=== PATIENT | female | born 1950 | race Caucasian/White ===

== ENCOUNTER 2016-03-24 09:20 | Inpatient (IN) | payer OTHER ==
--- NOTE | 2016-03-24 09:28 | PDOC ---
History of Present Illness <Deniz Coronado - Last Filed: 03/24/16 12:15> - General History Source: EMS, Old Records Exam Limitations: Other - History of Present Illness Initial Comments: 03/24/16 09:41 The patient is a 65 year old female, with significant past medical history of HLD, GERD, anxiety, bipolar disorder, who presents today via ambulance. The patient is A&O x1; therefore, HPI is limited. EMS states that the patient called an ambulance via life alert. She had multiple episodes of vomiting. She is not complaining of any pain at this time. Social Hx: The patient lives at home alone. She has an at home health aid that comes at 11am. Allergies: amoxicillin trihydrate, potassium clavulanate, clindamycin, sulfa. <Steffi Farah - Last Filed: 03/24/16 13:15> - General Stated Complaint: VOMITING Past History - Past Medical History Anemia: No GI Disorders: (acid reflex) Hypercholesterolemia: Yes Psychiatric Problems: Yes (OCD) - Surgical History Abdominal Surgery: Yes (gallbladder removed) Cholecystectomy: Yes - Immunization History Immunization Up to Date: Yes - Psycho/Social/Smoking Cessation Hx Anxiety: Yes Suicidal Ideation: No Smoking History: Current every day smoker Have you smoked in the past 12 months: Yes Number of Cigarettes Smoked Daily: 20 Cigars Per Day: 0 'Breaking Loose' booklet given: 02/16/16 Hx Alcohol Use: No Drug/Substance Use Hx: No Substance Use Type: None Hx Substance Use Treatment: No <Deniz Coronado - Last Filed: 03/24/16 12:15> <Steffi Farah - Last Filed: 03/24/16 13:15> - Past Medical History Allergies/Adverse Reactions: Allergies Allergy/AdvReac Type Severity Reaction Status Date / Time amoxicillin trihydrate Allergy Intermediate Difficulty Verified 03/24/16 09:31 [From Augmentin] Breathing potassium clavulanate Allergy Intermediate Difficulty Verified 03/24/16 09:31 [From Augmentin] Breathing clindamycin Allergy Verified 03/24/16 09:31 Sulfa (Sulfonamide Allergy Verified 03/24/16 09:31 Antibiotics) Home Medications: Ambulatory Orders Atorvastatin Ca [Lipitor] 10 mg PO HS 08/14/15 Polyethylene Glycol 3350 [Miralax 119 gm Btl -] 17 gm PO DAILY bottle 09/07/15 Acetaminophen [Tylenol .Regular Strength -] 650 mg PO Q4H PRN #0 tablet Alprazolam [Xanax] 2 mg PO TID #90 tablet MDD 6mg 03/09/16 Atenolol [Tenormin -] 25 mg PO DAILY #14 tablet 03/09/16 Mirtazapine [Remeron -] 45 mg PO HS #30 tablet 03/09/16 Nifedipine ER [Procardia XL -] 30 mg PO DAILY #14 tab.er.24 03/09/16 Ondansetron [Zofran -] 4 mg PO TID PRN #21 tablet 03/09/16 Quetiapine Fumarate [Seroquel -] 400 mg PO HS #30 tablet 03/09/16 Review of Systems - Review of Systems Able to Perform ROS?: No (limited) <Steffi Farah - Last Filed: 03/24/16 13:15> *Physical Exam - Physical Exam Comments: 03/24/16 09:42 GENERAL: Well-appearing, well-nourished. No apparent distress. A&O x1. HEENT: Normocephalic, atraumatic. PERRL, EOM intact. CARDIOVASCULAR: Normal S1, S2. Regular rate and rhythm. PULMONARY: Clear to auscultation bilaterally. ABDOMEN: Soft, non-distended, non-tender. EXTREMITIES: +2 pitting edema bilaterally.Moving all extremities. Normal ROM in all four extremities. No gross deformities. SKIN: Warm, dry. No rash NEUROLOGICAL: Clear speech. No focal neurological deficits. <Steffi Farah - Last Filed: 03/24/16 13:15> ED Treatment Course - LABORATORY CBC & Chemistry Diagram: 03/24/16 09:50 03/24/16 09:50 <Deniz Coronado - Last Filed: 03/24/16 12:15> - LABORATORY CBC & Chemistry Diagram: 03/24/16 09:50 03/24/16 09:50 - RADIOLOGY Radiograph Interpretation: 03/24/16 11:07 EXAM#: TYPE/EXAM: RESULT: [id number] RAD/CHEST X-RAY PORTABLE* AP portable chest: Pneumonia Since 03/08/2016, there is no significant change. Again noted is the elevated right hemidiaphragm, clear lungs, sclerotic knob, normal lacie and normal heart. The angles are sharp and the soft tissues are intact. Significant arthritic changes are not seen. Impression: No acute pathology. No significant change since 03/08/2016. Reported By: Gurdeep Coleman MD 03/24/16 1049 03/24/16 13:15 EXAM#: TYPE/EXAM: RESULT: [id number] CT/HEAD CT WITHOUT CONTRAST HISTORY PROVIDED : Altered mental status TECHNIQUE: Sequential axial images were obtained from the base of the skull to the vertex. There is no evidence of acute intracranial hemorrhage, mass lesions or infarctions. There is a mild degree of diffuse cerebral atrophy with sulcal widening and ventricular dilatation. IMPRESSION: No evidence of acute intracranial pathology. Reported By: Varun Mathis MD 03/24/16 1231 <Steffi Farah - Last Filed: 03/24/16 13:15> *DC/Admit/Observation/Transfer - Discharge Dispostion Admit: Yes <Deniz Coronado - Last Filed: 03/24/16 12:15> - Attestations Scribe Attestion: 03/24/16 09:43 Documentation prepared by RAGINI Corado, acting as medical communication specialist for Deniz Coronado MD. <Steffi Farah - Last Filed: 03/24/16 13:15> Diagnosis at time of Disposition: Acute metabolic encephalopathy, Hyponatremia syndrome - Discharge Dispostion Condition at time of disposition: Guarded
[2016-03-24] MEDS ORDERED: SODIUM CHLORIDE 500 ML IV STA (09:33)
[2016-03-24] MEDS ORDERED: SODIUM CHLORIDE 1,000 ML IV SCH (09:45)
[2016-03-24] MEDS ORDERED: ONDANSETRON 4 MG/2 ML VIAL IVPUSH ONE (10:00)
[2016-03-24] MEDS ORDERED: ONDANSETRON 4 MG/2 ML VIAL ONE (10:01)
[2016-03-24 10:22] LABS: BASOPHIL 0.5 % (0-2.0); MCH 27.7 pg (25.7-33.7); MCHC 34.2 g/dl (32.0-36.0); MEAN CELL VOLUME 80.9 fl (80-96); MEAN PLT VOLUME 8.5 fl (7.5-11.1); NEUTROPHILS 83.2 % (42.8-82.8); PLATELET COUNT 290 K/MM3 (134-434); RDW 13.1 % (11.6-15.6); WHITE BLOOD COUNT 7.3 K/mm3 (4.0-10.0)
[2016-03-24 10:27] VITALS: BMI 29.0
[2016-03-24 10:37] LABS: URINE APPEARANCE CLEAR; URINE BILIRUBIN NEGATIVE (NEGATIVE); URINE COLOR LTYELLOW; URINE GLUCOSE (UA) NEGATIVE (NEGATIVE); URINE KETONE NEGATIVE (NEGATIVE); URINE LEUK ESTERASE NEGATIVE (NEGATIVE); URINE NITRITE NEGATIVE (NEGATIVE); URINE UROBILINOGEN NEGATIVE E.U./dl (0.2-1.0)
[2016-03-24 10:42] LABS: URINE BLOOD 3+ (NEGATIVE); URINE PROTEIN 2+ (NEGATIVE)
[2016-03-24 10:45] LABS: CREATININE 1.5 mg/dL (0.55-1.02)
[2016-03-24 10:46] LABS: ALBUMIN 4.1 g/dl (3.4-5.0); BILIRUBIN,TOTAL 0.4 mg/dL (0.2-1.0); CALCIUM 9.8 mg/dL (8.5-10.1); TOT PROT 9.1 g/dl (6.4-8.2)
[2016-03-24 10:47] LABS: GRANULAR CASTS 3 /lpf; URINE BACTERIA RARE /hpf (NONE SEEN); URINE HYALINE CAST 1 /lpf; URINE MUCUS RARE; URINE RBC 6 /hpf (0-3); URINE WBC 1 /hpf (3-5); YEAST FEW
[2016-03-24 10:54] LABS: THYROID STIMULATING HORMONE 2.09 uIU/ml (0.358-3.74)
[2016-03-24 11:01] LABS: TROPONIN I < 0.02 ng/ml (0.00-0.05)
[2016-03-24 12:22] LABS: SODIUM,RANDOM URINE 12 MMOL/L
[2016-03-24 12:31] LABS: CHLORIDE,RANDOM URINE < 10 MMOL/L
[2016-03-24] MEDS ORDERED: cloNIDine HCL 0.1 MG TABLET PO ONE (12:41)
[2016-03-24] MEDS ORDERED: cloNIDine HCL 0.1 MG TABLET ONE (12:45)
--- NOTE | 2016-03-24 13:39 | CONSULT ---
Consult - text type - Consultation Consultation Note: Renal consult for Hyponatremia This is a 65 year old woman with PMhx of Bipolar disorder, Anxiety, Hyperlipidemia, GERD, CKD presented with N/V and found to have Na of 119. Pt known to me from prior admissions. Pt is awake and alert but not able to provide any further history. Reports some Abd pain. No chest pain, sob, fever or chills. Says she drinks a lot of water but cannot quantify. No SOLANO. No documented seizures. PMhx: as above Allergies: NKDA Social hx: no T/A/D family hx: NC ROS: as per HPI, all other pertinent ros negative Home meds: Medication Instructions Recorded Atorvastatin Ca [Lipitor] 10 mg PO HS 08/14/15 Polyethylene Glycol 3350 [Miralax 17 gm PO DAILY bottle 09/07/15 119 gm Btl -] Acetaminophen [Tylenol .Regular 650 mg PO Q4H PRN #0 tablet 09/21/15 Strength -] Alprazolam [Xanax] 2 mg PO TID #90 tablet MDD 6mg 03/09/16 Atenolol [Tenormin -] 25 mg PO DAILY #14 tablet 03/09/16 Mirtazapine [Remeron -] 45 mg PO HS #30 tablet 03/09/16 Nifedipine ER [Procardia XL -] 30 mg PO DAILY #14 tab.er.24 03/09/16 Ondansetron [Zofran -] 4 mg PO TID PRN #21 tablet 03/09/16 Quetiapine Fumarate [Seroquel -] 400 mg PO HS #30 tablet 03/09/16 Vital Signs Temperature 96.6 F L 03/24/16 10:20 Pulse Rate 91 H 03/24/16 13:23 Respiratory Rate 22 03/24/16 13:23 Blood Pressure 173/99 03/24/16 13:23 O2 Sat by Pulse Oximetry (%) 98 03/24/16 13:23 Intake & Output 03/21/16 03/22/16 03/23/16 03/24/16 23:59 23:59 23:59 23:59 Weight 185 lb Gen: NAD, awake and alert. Flat affect HEENT: NC/AT, Dry MM, No JVD CVS: RRR, No M/R Lungs: CTA,no rales or wheeze Abd: soft NT/ND Ext: No edema : No bladder distension Neuro: Awake and alert CBC, BMP 03/24/16 09:50 03/24/16 09:50 Current Medications Sodium Chloride (Normal Saline -) 1,000 mls @ 125 mls/hr IV [facility] Last Admin: 03/24/16 10:23 Dose: 125 mls/hr A/P 65 year old woman with PMhx of Bipolar disorder, Anxiety, Hyperlipidemia, GERD, CKD presented with N/V and found to have Na of 119 #Acute Hyponatremia Etiology likely volume depletion in setting of N/V Pt with Low Urine Na (12) which goes against SIADH. Pt also with evidence of volume contraction (high BUN: Cr ratio, hemoconcentartion) Would continue istonic saline at 100cc per hour Monitor Na Q6h, repeat BMP now Free water restriction to less then 1L daily No acute indication for 3% saline Goal rate of correction is ~8 per day Thank you Augusto Riley DO
[2016-03-24 13:49] LABS: URIC ACID 4.7 mg/dL (2.6-7.2)
--- NOTE | 2016-03-24 14:40 | HP ---
Admitting History and Physical - Primary Care Physician PCP: Trini Davis - Admission Chief Complaint: altered mental status History of Present Illness: HISTORY OF BIPOLAR DISORDER, HTN, HERE WITH AMS FOUND TO HAVE HYPONATREMIA, CT HEAD NEGATIVE FOR ACUTE CVA. RENAL EVAL IN PROGRESS, MORE ALERT WITH IVF. History Source: Patient, Medical Record - Past Medical History Cardiovascular: Yes: Hyperlipdemia Infectious Disease: Yes: MRSA (right elbow) Psych: Yes: Anxiety, Bipolar - Smoking History Smoking history: Current every day smoker Have you smoked in the past 12 months: Yes Aproximately how many cigarettes per day: 20 - Alcohol/Substance Use Hx Alcohol Use: No - Social History ADL: Support Services History of Recent Travel: No Home Medications - Allergies Allergies/Adverse Reactions: Allergies Allergy/AdvReac Type Severity Reaction Status Date / Time amoxicillin trihydrate Allergy Intermediate Difficulty Verified 03/24/16 09:31 [From Augmentin] Breathing potassium clavulanate Allergy Intermediate Difficulty Verified 03/24/16 09:31 [From Augmentin] Breathing clindamycin Allergy Verified 03/24/16 09:31 Sulfa (Sulfonamide Allergy Verified 03/24/16 09:31 Antibiotics) - Home Medications Home Medications: Ambulatory Orders Atorvastatin Ca [Lipitor] 10 mg PO HS 08/14/15 Polyethylene Glycol 3350 [Miralax 119 gm Btl -] 17 gm PO DAILY bottle 09/07/15 Acetaminophen [Tylenol .Regular Strength -] 650 mg PO Q4H PRN #0 tablet Alprazolam [Xanax] 2 mg PO TID #90 tablet MDD 6mg 03/09/16 Atenolol [Tenormin -] 25 mg PO DAILY #14 tablet 03/09/16 Mirtazapine [Remeron -] 45 mg PO HS #30 tablet 03/09/16 Nifedipine ER [Procardia XL -] 30 mg PO DAILY #14 tab.er.24 03/09/16 Ondansetron [Zofran -] 4 mg PO TID PRN #21 tablet 03/09/16 Quetiapine Fumarate [Seroquel -] 400 mg PO HS #30 tablet 03/09/16 Review of Systems - Review of Systems Constitutional: reports: Lethargy, Weakness Eyes: reports: No Symptoms HENT: reports: No Symptoms Neck: reports: No Symptoms Cardiovascular: reports: No Symptoms Respiratory: reports: No Symptoms Gastrointestinal: reports: No Symptoms Genitourinary: reports: No Symptoms Musculoskeletal: reports: No Symptoms Integumentary: reports: No Symptoms Neurological: reports: Confusion, Weakness, Other Endocrine: reports: No Symptoms Hematology/Lymphatic: reports: No Symptoms Physical Examination Vital Signs: Vital Signs Temperature 96.6 F L 03/24/16 10:20 Pulse Rate 91 H 03/24/16 13:23 Respiratory Rate 22 03/24/16 13:23 Blood Pressure 173/99 03/24/16 13:23 O2 Sat by Pulse Oximetry (%) 98 03/24/16 13:23 Constitutional: Yes: Mild Distress Eyes: Yes: WNL HENT: Yes: WNL Neck: Yes: WNL Cardiovascular: Yes: WNL Respiratory: Yes: WNL Gastrointestinal: Yes: WNL Renal/: Yes: WNL Breast(s): Yes: Skin Changes Musculoskeletal: Yes: Muscle Weakness Extremities: Yes: Other Edema: Yes Peripheral Pulses WNL: Yes Integumentary: Yes: Other Wound/Incision: Yes: Clean/Dry Neurological: Yes: Confusion, Weakness ...Motor Strength: LLE, RLE Psychiatric: Yes: Other Imaging - Results Cat Scan: Report Reviewed Problem List - Problems (1) Acute metabolic encephalopathy Code(s): G93.41 - METABOLIC ENCEPHALOPATHY (2) Gait abnormality Code(s): R26.9 - UNSPECIFIED ABNORMALITIES OF GAIT AND MOBILITY (3) Bipolar disorder Code(s): F31.9 - BIPOLAR DISORDER, UNSPECIFIED (4) Smoking history Code(s): Z87.891 - PERSONAL HISTORY OF NICOTINE DEPENDENCE (5) Hyponatremia with decreased serum osmolality Code(s): E87.1 - HYPO-OSMOLALITY AND HYPONATREMIA Assessment/Plan RENAL EVAL IN PROGRESS IVF REPEAT NA+ LEVEL IN 6HRS INCREASE SLOWLY AVOID PONTINE MYELINITIS PSYCH EVAL FALL PRECAUTIONS NEURO CHECKS BP MEDS RESTARTED
[2016-03-24] MEDS ORDERED: ATENOLOL 25 MG TABLET (FP) ONE (15:16)
[2016-03-24] MEDS: ATENOLOL 50 MG TABLET (FP) PO SCH (15:20)
[2016-03-24] MEDS: NIFEdipine E.R. 30 MG TABLET (FP) PO SCH (18:22)
[2016-03-24 19:19] LABS: CREATININE 1.7 mg/dL (0.55-1.02)
[2016-03-24] MEDS: ONDANSETRON *ODT* 4 MG TABLET SL PRN (20:48)
[2016-03-24] MEDS: SODIUM CHLORIDE 1,000 ML IV SCH (20:49)
[2016-03-24] MEDS ORDERED: PT OWN MED DRAWER 7, Y5N ONE (23:10)
[2016-03-24] MEDS: QUEtiapine FUMARATE 400 MG TABLET PO SCH (23:18)
[2016-03-24] MEDS: ATORVASTATIN CA 20 MG TABLET (FP) PO SCH (23:19)
[2016-03-24] MEDS: ALPRAZolam 2 MG TABLET PO PRN (23:19)
[2016-03-24] MEDS: MIRTAZAPINE 15 MG TABLET (FP) PO SCH (23:19)
--- NOTE | 2016-03-24 23:22 | EKG ---
Test Reason : Blood Pressure : / mmHG Vent. Rate : 075 BPM Atrial Rate : 075 BPM P-R Int : 154 ms QRS Dur : 078 ms QT Int : 398 ms P-R-T Axes : 057 029 057 degrees QTc Int : 444 ms SINUS RHYTHM WITH MARKED SINUS ARRHYTHMIA POSSIBLE LEFT ATRIAL ENLARGEMENT CANNOT RULE OUT ANTERIOR INFARCT (CITED ON OR BEFORE 08-MAR-2016) ABNORMAL ECG WHEN COMPARED WITH ECG OF 08-MAR-2016 13:54, NO SIGNIFICANT CHANGE WAS FOUND Confirmed by DORIS FRAZIER MD ([id number]) on 03/24/2016 11:22:16 PM Referred By: Confirmed By:DORIS FRAZIER MD
[2016-03-25] MEDS: SODIUM CHLORIDE 1,000 ML IV SCH ×2 (05:57→21:58)
[2016-03-25 07:03] LABS: MCH 27.9 pg (25.7-33.7); MCHC 34.1 g/dl (32.0-36.0); MEAN CELL VOLUME 81.8 fl (80-96); MEAN PLT VOLUME 8.8 fl (7.5-11.1); PLATELET COUNT 253 K/MM3 (134-434); RDW 13.1 % (11.6-15.6); WHITE BLOOD COUNT 6.3 K/mm3 (4.0-10.0)
[2016-03-25 07:37] LABS: ALBUMIN 3.4 g/dl (3.4-5.0)
[2016-03-25 07:42] LABS: BILIRUBIN,TOTAL 0.3 mg/dL (0.2-1.0); CREATININE 1.2 mg/dL (0.55-1.02); TOT PROT 6.8 g/dl (6.4-8.2)
--- NOTE | 2016-03-25 08:44 | PN ---
Progress Note, Physician History of Present Illness: AWAKE ALERT NAD - Current Medication List Current Medications: Active Medications Alprazolam (Xanax -) 2 mg PO Q12H PRN PRN Reason: ANXIETY Last Admin: 03/24/16 23:19 Dose: 2 mg Atenolol (Tenormin -) 50 mg PO DAILY [facility] Last Admin: 03/24/16 15:20 Dose: 50 mg Atorvastatin Calcium (Lipitor -) 20 mg PO [facility] Last Admin: 03/24/16 23:19 Dose: 20 mg Sodium Chloride (Normal Saline -) 1,000 mls @ 75 mls/hr IV ASDIR [facility] Last Admin: 03/25/16 05:57 Dose: 75 mls/hr Mirtazapine (Remeron -) 45 mg PO [facility] Last Admin: 03/24/16 23:19 Dose: 45 mg Nifedipine (Procardia Xl -) 30 mg PO DAILY [facility] Last Admin: 03/24/16 18:22 Dose: 30 mg Ondansetron HCl (Zofran Odt -) 8 mg SL Q6H PRN PRN Reason: NAUSEA AND/OR VOMITING Last Admin: 03/24/16 20:48 Dose: 8 mg Quetiapine Fumarate (Seroquel -) 400 mg PO [facility] Last Admin: 03/24/16 23:18 Dose: 400 mg - Objective Vital Signs: Vital Signs Temperature 97.8 F 03/25/16 06:00 Pulse Rate 73 03/25/16 06:00 Respiratory Rate 18 03/25/16 06:00 Blood Pressure 124/72 03/25/16 06:00 O2 Sat by Pulse Oximetry (%) 100 03/24/16 21:00 Cardiovascular: Yes: Regular Rate and Rhythm Respiratory: Yes: Regular, CTA Bilaterally Gastrointestinal: Yes: Normal Bowel Sounds, Soft Edema: No Neurological: Yes: Alert, Oriented Labs: CBC, BMP 03/25/16 05:30 03/25/16 05:30 Problem List - Problems (1) Acute metabolic encephalopathy Assessment/Plan: IMPROVING MONITOR Code(s): G93.41 - METABOLIC ENCEPHALOPATHY (2) Hyponatremia syndrome Assessment/Plan: IMPROVING MONITOR RENAL CONSULT Code(s): E87.1 - HYPO-OSMOLALITY AND HYPONATREMIA (3) Altered mental status Assessment/Plan: MAYBE DUE TO ABOVE Code(s): R41.82 - ALTERED MENTAL STATUS, UNSPECIFIED Qualifiers: Altered mental status type: unspecified Qualified Code(s): R41.82 - Altered mental status, unspecified (4) Bipolar disorder Assessment/Plan: PSYCH ON CASE Code(s): F31.9 - BIPOLAR DISORDER, UNSPECIFIED
--- NOTE | 2016-03-25 09:20 | CONSULT ---
Admitting History and Physical - Primary Care Physician PCP: William Flynn - Admission History of Present Illness: Per EMR: "Initial Comments: 03/24/16 09:41 The patient is a 65 year old female, with significant past medical history of HLD, GERD, anxiety, bipolar disorder, who presents today via ambulance. The patient is A&O x1; therefore, HPI is limited. EMS states that the patient called an ambulance via life alert. She had multiple episodes of vomiting. She is not complaining of any pain at this time. Social Hx: The patient lives at home alone. She has an at home health aid that comes at 11am. Allergies: amoxicillin trihydrate, potassium clavulanate, clindamycin, sulfa." Seen during Jan admission. History Source: Medical Record Limitations to Obtaining History: Clinical Condition - Past Medical History Cardiovascular: Yes: Hyperlipdemia Infectious Disease: Yes: MRSA (right elbow) Psych: Yes: Anxiety, Bipolar - Smoking History Smoking history: Current every day smoker Have you smoked in the past 12 months: Yes Aproximately how many cigarettes per day: 20 - Alcohol/Substance Use Hx Alcohol Use: No - Social History ADL: Support Services History of Recent Travel: No History - Admission Reason For Visit: HYPONATREMIA SYNDROME, ENCEPHALOPATHY - Diagnostics X-ray: Report Reviewed CT Scan: Report Reviewed - General Mental Status: Awake and Alert, Forgetful, Intermittently Confused Attention: Intact Ability to Follow Directions: Fair Head/Neck Control: Good - Hearing Hearing: Normal Hearing Aide: No Speech Evaluation - Communication Primary Language: GUAMANIAN Communication: Yes: Simple Responses (Tangential responses,not related to questions at times. Other responses appropriate. Scanning speech. Psychogenic? Baseline? labs noted.) Oral Expression Ability: Yes: Mild Impairment - Speech Production Able to Make Needs Known: Yes: Mildly Impaired Intelligibility: Yes: WNL - Speech Characteristics Voice Loudness: Normal Voice Pitch: Yes: Normal Voice Phonatory-based Quality: Yes: Normal Nasal Resonance: Normal Articulation: Yes: Precise Rate of Speech: Intact (sporadic,hesitant) - Language/Auditory Comprehension Follows: Yes: 1 Stage Simple Commands - Language/Verbal Expression Able to Communicate Wants and Needs: Yes: Mildly Impaired - Swallow Evaluation/Bedside Assessment Current Nutritional Intake: Clear Liquids Oral Secretions: Yes: WFL Dentition: Yes: Adequate Facial Symmetry at Rest: Symmetrical Facial Symmetry on Retraction: Symmetrical Facial Movement: Controlled Sensation: Normal Against Resistance Opening: Normal Against Resistance Closing: Normal Pucker Lips: Normal Smile: Normal Lingual Movement: Normal Lingual Speed of Movement: Normal Lingual Movement Strgth Against Opposition: Normal Lingual Movement Characteristics: Normal Velopharyngeal Movement: Normal Laryngeal Elevation: WFL Laryngeal Movement: Able to Palpate Rate of Intake: WFL Bolus Size: WFL Labial Seal: WFL A-P Transit: WFL Timing of Swallow: WFL Coughing/Throat Clear: No Change in Voice: No Recommendations - Speech Evaluation, Impression/Plan Impression: Admitted with vomiting. W/U in progress. Expressive language is hesitant and tangential.CT head (-). Psychogenic? Baseline? Labs noted. Speech precise. Swallowing overtly intact. - Dysphagia Impressions/Plan Swallowing Skills: [facility] Dysphagia Impressions: No Impairment *Silent aspiration: cannot be R/O at bedside - Recommendations Diet Consistency: Other (per PMD,as tolerated. On clear liquids presently due to vomiting.)
[2016-03-25] MEDS: NIFEdipine E.R. 30 MG TABLET (FP) PO SCH (10:41)
[2016-03-25] MEDS: ATENOLOL 50 MG TABLET (FP) PO SCH (10:41)
--- NOTE | 2016-03-25 11:57 | PN ---
Progress Note, Physician Chief Complaint: Patient seen in her bed. Seems comfortable. No nausea or vomiting now. IV fluids well tolerated. Denies any pains. - Current Medication List Current Medications: Active Medications Alprazolam (Xanax -) 2 mg PO Q12H PRN PRN Reason: ANXIETY Last Admin: 03/24/16 23:19 Dose: 2 mg Atenolol (Tenormin -) 50 mg PO DAILY [facility] Last Admin: 03/25/16 10:41 Dose: 50 mg Atorvastatin Calcium (Lipitor -) 20 mg PO HS [facility] Last Admin: 03/24/16 23:19 Dose: 20 mg Sodium Chloride (Normal Saline -) 1,000 mls @ 75 mls/hr IV ASDIR [facility] Last Admin: 03/25/16 05:57 Dose: 75 mls/hr Mirtazapine (Remeron -) 45 mg PO [facility] Last Admin: 03/24/16 23:19 Dose: 45 mg Nifedipine (Procardia Xl -) 30 mg PO DAILY [facility] Last Admin: 03/25/16 10:41 Dose: 30 mg Ondansetron HCl (Zofran Odt -) 8 mg SL Q6H PRN PRN Reason: NAUSEA AND/OR VOMITING Last Admin: 03/24/16 20:48 Dose: 8 mg Quetiapine Fumarate (Seroquel -) 400 mg PO [facility] Last Admin: 03/24/16 23:18 Dose: 400 mg - Objective Vital Signs: Vital Signs Temperature 97.8 F 03/25/16 06:00 Pulse Rate 73 03/25/16 06:00 Respiratory Rate 18 03/25/16 06:00 Blood Pressure 124/72 03/25/16 06:00 O2 Sat by Pulse Oximetry (%) 100 03/24/16 21:00 Constitutional: Yes: Well Nourished, No Distress, Anxious Eyes: Yes: WNL HENT: Yes: WNL Neck: Yes: WNL Cardiovascular: Yes: Regular Rate and Rhythm, S1, S2 Respiratory: Yes: Regular, Diminished Gastrointestinal: Yes: Normal Bowel Sounds, Soft Genitourinary: Yes: WNL Neurological: Yes: Alert, Oriented Labs: CBC, BMP 03/25/16 05:30 03/25/16 05:30 Problem List - Problems (1) Acute metabolic encephalopathy Code(s): G93.41 - METABOLIC ENCEPHALOPATHY (2) Cellulitis of right elbow Code(s): L03.113 - CELLULITIS OF RIGHT UPPER LIMB (3) Gait abnormality Code(s): R26.9 - UNSPECIFIED ABNORMALITIES OF GAIT AND MOBILITY (4) Hyponatremia syndrome Code(s): E87.1 - HYPO-OSMOLALITY AND HYPONATREMIA (5) Hyponatremia with decreased serum osmolality Code(s): E87.1 - HYPO-OSMOLALITY AND HYPONATREMIA (6) Anemia Code(s): D64.9 - ANEMIA, UNSPECIFIED (7) Bipolar disorder Code(s): F31.9 - BIPOLAR DISORDER, UNSPECIFIED (8) Hypertension Code(s): I10 - ESSENTIAL (PRIMARY) HYPERTENSION Assessment/Plan Serum Sodium improving in this patient with Acute Hyponatremia and reduced Urine Osm. IV fluids well tolerated. Patient's Renal functions improving towards her baseline. Has some degree of CKD, possibly Microvascular Renal disease. Will continue the IV fluids for now, until oral intake is satisfactory. Monitor the renal and electrolyte profile with you. Olivia Becker MD
--- NOTE | 2016-03-25 13:20 | PN ---
Progress Note (short form) - Note Progress Note: PULMONARY CONSULTATION DICTATED 03/25/16 IMP SEVERE HYPONATREMIA ALTERED MENTAL STATUS HTN ACUTE ON CHRONIC KIDNEY DISEASE H/O BIPOLAR TOBACCO ABUSE PLAN IVF PER RENAL MONITOR LYTES,NA ,RENAL FUNCTION CT CHEST LOW DOSE SMOKING CESSATION DR ELENA Problem List - Problems (1) Acute metabolic encephalopathy Code(s): G93.41 - METABOLIC ENCEPHALOPATHY (2) Hyponatremia syndrome Code(s): E87.1 - HYPO-OSMOLALITY AND HYPONATREMIA (3) Hyponatremia with decreased serum osmolality Code(s): E87.1 - HYPO-OSMOLALITY AND HYPONATREMIA (4) MRSA (methicillin resistant staph aureus) culture positive Code(s): Z22.322 - CARRIER OR SUSPECTED CARRIER OF METHICILLIN RESIS STAPH (5) Sepsis Code(s): A41.9 - SEPSIS, UNSPECIFIED ORGANISM (6) Altered mental status Code(s): R41.82 - ALTERED MENTAL STATUS, UNSPECIFIED Qualifiers: Altered mental status type: unspecified Qualified Code(s): R41.82 - Altered mental status, unspecified (7) Anemia Code(s): D64.9 - ANEMIA, UNSPECIFIED (8) Bipolar disorder Code(s): F31.9 - BIPOLAR DISORDER, UNSPECIFIED (9) DVT prophylaxis Code(s): [id number] - (10) Hypercholesteremia Code(s): E78.0 - PURE HYPERCHOLESTEROLEMIA * DO NOT USE * (11) Hypertension Code(s): I10 - ESSENTIAL (PRIMARY) HYPERTENSION (12) Hyponatremia Code(s): E87.1 - HYPO-OSMOLALITY AND HYPONATREMIA (13) Smoking Code(s): F17.200 - NICOTINE DEPENDENCE, UNSPECIFIED, UNCOMPLICATED (14) Smoking history Code(s): Z87.891 - PERSONAL HISTORY OF NICOTINE DEPENDENCE
--- NOTE | 2016-03-25 18:13 | CONSULT ---
Consult - text type - Consultation Consultation Note: Patient with a history of Major depressive disorder, severe and debitating OCD. on many psych meds. Admitted for Hyponatremia. patient essentially talks about not feeling well. seeks constant reassurance. No increse in depression or suicidal behaviour. Plan: continue with currant psych meds. discharge home when medically clear.
--- NOTE | 2016-03-25 19:40 | CONS ---
DATE OF CONSULTATION: 03/25/2016 PULMONARY CONSULTATION REFERRING PHYSICIAN: William Flynn M.D. HISTORY OF PRESENT ILLNESS: The patient is a 65-year-old female with a past medical history of bipolar, anxiety, hyperlipidemia, GERD, chronic kidney disease, admitted to [facility] with nausea and vomiting. Patient at the time of admission had a serum sodium 119, was also noted to be confused, awake and alert but unable to provide any history. They said she is a smoker. Unsure whether or not she has any respiratory complaints. Patient was admitted, evaluated by renal consultation, started on IV fluids and normal saline 125 mL an hour. PAST MEDICAL HISTORY: Again, includes bipolar, anxiety, hyperlipidemia, GERD, chronic kidney disease. She also has a history of tobacco use. CURRENT MEDICATIONS: Include Zofran, Remeron, Seroquel, Xanax, Procardia, normal saline, Lipitor, and Tenormin. REVIEW OF SYSTEMS: Unable to obtain at this time. Patient is awake but unable to answer the questions. PHYSICAL EXAMINATION: General: The patient is a well-developed, well-nourished female, awake, alert, appears in no acute distress. Vital signs: She is currently afebrile. Heart rate 73, blood pressure 124/72, respiratory rate 18, and O2 saturation is 100% on room air. HEENT: Head is normocephalic, atraumatic. Neck: Supple. Heart: Regular. S1, S2. Chest: Clear. Abdomen: Soft. Bowel sounds positive. Extremities: No cyanosis, edema. LABORATORY: WBC 6.3, hemoglobin 11.3, hematocrit 33, platelet count of 253, 000. BUN 12, creatinine 1.2. Urine sodium is 12, osmolality is 174. Chest x-ray: there are no acute infiltrates and/or effusions. Electrolytes: serum sodium today is 131. IMPRESSION: 1. Severe hyponatremia. 2. History of bipolar. 3. History of chronic kidney disease in view of chronic renal insufficiency. 4. Tobacco abuse. PLAN: Continue IV fluids, monitor serum sodium. Smoking cessation. Neurological evaluation as well as get CT scan of the chest. Patient has longstanding history of tobacco use. BRENDA ELENA M.D. [id number] MTDD
--- NOTE | 2016-03-25 20:47 | CON.GI ---
Consult Consult Specialty:: GI Referred by:: Dr Davis Reason for Consultation:: vomiting - History of Present Illness Chief Complaint: vomiting History of Present Illness: 65 F with psych history incl bipolar disorder, anxiety, HLD, CKD, GERD initially admitted to ER with N/V and jenniferjangus to have a Na of 119. She has been admitted several times in the past and is known to our service. - History Source History Provided By: Medical Record Limitations to Obtaining History: Poor Historian - Past Medical History Cardio/Vascular: Yes: Hyperlipdemia Infectious Disease: Yes: MRSA (right elbow) Psych: Yes: Anxiety, Bipolar - Alcohol/Substance Use Hx Alcohol Use: No - Smoking History Smoking history: Current every day smoker Have you smoked in the past 12 months: Yes Aproximately how many cigarettes per day: 20 - Social History Usual Living Arrangement: Alone ADL: Support Services History of Recent Travel: No Home Medications - Allergies Allergies/Adverse Reactions: Allergies Allergy/AdvReac Type Severity Reaction Status Date / Time amoxicillin trihydrate Allergy Intermediate Difficulty Verified 03/24/16 09:31 [From Augmentin] Breathing potassium clavulanate Allergy Intermediate Difficulty Verified 03/24/16 09:31 [From Augmentin] Breathing clindamycin Allergy Verified 03/24/16 09:31 Sulfa (Sulfonamide Allergy Verified 03/24/16 09:31 Antibiotics) - Home Medications Home Medications: Ambulatory Orders Atorvastatin Ca [Lipitor] 10 mg PO HS 08/14/15 Polyethylene Glycol 3350 [Miralax 119 gm Btl -] 17 gm PO DAILY bottle 09/07/15 Acetaminophen [Tylenol .Regular Strength -] 650 mg PO Q4H PRN #0 tablet Alprazolam [Xanax] 2 mg PO TID #90 tablet MDD 6mg 03/09/16 Atenolol [Tenormin -] 25 mg PO DAILY #14 tablet 03/09/16 Mirtazapine [Remeron -] 45 mg PO HS #30 tablet 03/09/16 Nifedipine ER [Procardia XL -] 30 mg PO DAILY #14 tab.er.24 03/09/16 Ondansetron [Zofran -] 4 mg PO TID PRN #21 tablet 03/09/16 Quetiapine Fumarate [Seroquel -] 400 mg PO HS #30 tablet 03/09/16 Physical Exam-GI Vital Signs: Vital Signs Temperature 97.7 F 03/25/16 15:32 Pulse Rate 72 03/25/16 15:32 Respiratory Rate 18 03/25/16 15:32 Blood Pressure 121/74 03/25/16 15:32 O2 Sat by Pulse Oximetry (%) 100 03/25/16 09:00 Constitutional: Yes: Well Nourished, Anxious HENT: Yes: Normocephalic Neck: Yes: Supple Cardiovascular: Yes: Regular Rate and Rhythm Respiratory: Yes: CTA Bilaterally Gastrointestinal Inspection: Yes: WNL ...Auscultate: Yes: Normoactive Bowel Sounds ...Palpate: Yes: Soft Wound/Incision: Yes: Clean/Dry Neurological: Yes: Confusion Psychiatric: Yes: Other (Disconnected with flat affect. When asked if she had pain, she stated "I don't know" She was unable to cooperate with the exam due to this lack of ability to connect with me.) Labs: CBC, BMP 03/25/16 05:30 03/25/16 05:30 Imaging - Results Cat Scan: Pending Ultrasound: Pending Assessment/Plan 65 F brought to hospital for evaluation of AMS and vomiting and found to have a hyponatremia. She was likely vomiting secondary to electrolyte disturbance. Repeat Na 125. No vomiting today. She was making odd mouth movements suggesting poss early tardive dyskinesia. Psych on case. Would continue clear liquids for now Carmenfrmallory prn Agree with swallowing study as intermittent dysarthria during my exam-etiology unclear. Will follow.
[2016-03-25] MEDS ORDERED: PT OWN MED DRAWER 7, Y5N ONE (21:51)
[2016-03-25] MEDS: ATORVASTATIN CA 20 MG TABLET (FP) PO SCH (21:55)
[2016-03-25] MEDS: MIRTAZAPINE 15 MG TABLET (FP) PO SCH (21:55)
[2016-03-25] MEDS: QUEtiapine FUMARATE 400 MG TABLET PO SCH (21:55)
[2016-03-25] MEDS: ALPRAZolam 2 MG TABLET PO PRN (21:58)
--- NOTE | 2016-03-26 08:33 | PN ---
Progress Note, Physician History of Present Illness: AWAKE ALERT NAD DENIES ANY SOB OR CP - Current Medication List Current Medications: Active Medications Alprazolam (Xanax -) 2 mg PO Q12H PRN PRN Reason: ANXIETY Last Admin: 03/25/16 21:58 Dose: 2 mg Atenolol (Tenormin -) 50 mg PO DAILY [facility] Last Admin: 03/25/16 10:41 Dose: 50 mg Atorvastatin Calcium (Lipitor -) 20 mg PO HS [facility] Last Admin: 03/25/16 21:55 Dose: 20 mg Sodium Chloride (Normal Saline -) 1,000 mls @ 75 mls/hr IV ASDIR [facility] Last Admin: 03/25/16 21:58 Dose: 75 mls/hr Mirtazapine (Remeron -) 45 mg PO HS [facility] Last Admin: 03/25/16 21:55 Dose: 45 mg Nifedipine (Procardia Xl -) 30 mg PO DAILY [facility] Last Admin: 03/25/16 10:41 Dose: 30 mg Ondansetron HCl (Zofran Odt -) 8 mg SL Q6H PRN PRN Reason: NAUSEA AND/OR VOMITING Last Admin: 03/24/16 20:48 Dose: 8 mg Quetiapine Fumarate (Seroquel -) 400 mg PO [facility] - Objective Vital Signs: Vital Signs Temperature 98.1 F 03/26/16 06:00 Pulse Rate 74 03/26/16 06:00 Respiratory Rate 18 03/26/16 06:00 Blood Pressure 146/79 03/26/16 06:00 O2 Sat by Pulse Oximetry (%) 98 03/25/16 21:00 Cardiovascular: Yes: Regular Rate and Rhythm Respiratory: Yes: Regular, CTA Bilaterally Gastrointestinal: Yes: Normal Bowel Sounds, Soft Edema: No Labs: CBC, BMP 03/25/16 05:30 Problem List - Problems (1) Acute metabolic encephalopathy Assessment/Plan: IMPROVING MONITOR PT Code(s): G93.41 - METABOLIC ENCEPHALOPATHY (2) Hyponatremia syndrome Assessment/Plan: IMPROVING--NA 135 MONITOR RENAL CONSULT NOTED DC IVF Code(s): E87.1 - HYPO-OSMOLALITY AND HYPONATREMIA (3) Altered mental status Assessment/Plan: MAYBE DUE TO ABOVE AWAIT MRI Code(s): R41.82 - ALTERED MENTAL STATUS, UNSPECIFIED Qualifiers: Altered mental status type: unspecified Qualified Code(s): R41.82 - Altered mental status, unspecified (4) Bipolar disorder Assessment/Plan: PSYCH ON CASE Code(s): F31.9 - BIPOLAR DISORDER, UNSPECIFIED (5) Gait abnormality Assessment/Plan: PT NEURO Code(s): R26.9 - UNSPECIFIED ABNORMALITIES OF GAIT AND MOBILITY (6) Abnormal CAT scan Assessment/Plan: WILL NEED MONITORING WITH F/U CT VS PET Laboratory Tests 03/25/16 10:20 Carcinoembryonic Ag 0.9 Code(s): R93.8 - ABNORMAL FINDINGS ON DIAGNOSTIC IMAGING OF BODY STRUCTURES (7) Atelectasis Assessment/Plan: INCENTIVE SPIROMETRY Code(s): J98.11 - ATELECTASIS
[2016-03-26 08:48] LABS: ALBUMIN 3.4 g/dl (3.4-5.0); CALCIUM 9.1 mg/dL (8.5-10.1)
[2016-03-26 08:53] LABS: BILIRUBIN,TOTAL 0.2 mg/dL (0.2-1.0); CREATININE 1.2 mg/dL (0.55-1.02)
--- NOTE | 2016-03-26 10:57 | PN ---
Progress Note, [employer] - Note Progress Note: Speech/language function much improved. Mild hesitancy and mild anomia.Denies that she had regular food this am (It's coming later) although nursing reports she completed a reg breakfast tray. Swallow seems brisk with no overt difficulty with water. CT scan chest noted. Infiltrates possibly sec vomiting. MBS can be done, if ordered. No clear overt signs of dysphagia. Pending MRI.
[2016-03-26] MEDS: ATENOLOL 50 MG TABLET (FP) PO SCH (11:08)
[2016-03-26] MEDS: NIFEdipine E.R. 30 MG TABLET (FP) PO SCH (11:08)
[2016-03-26 11:32] LABS: BASOPHIL 0.7 % (0-2.0); EOSINOPHIL 0.3 % (0-4.5); MCH 27.7 pg (25.7-33.7); MCHC 33.3 g/dl (32.0-36.0); MEAN CELL VOLUME 83.2 fl (80-96); MEAN PLT VOLUME 8.9 fl (7.5-11.1); NEUTROPHILS 65.4 % (42.8-82.8); PLATELET COUNT 238 K/MM3 (134-434); RDW 13.3 % (11.6-15.6); WHITE BLOOD COUNT 7.1 K/mm3 (4.0-10.0)
--- NOTE | 2016-03-26 12:46 | PN ---
Progress Note (short form) - Note Progress Note: PULMONARY Denies shortness of breath or chest pain. CT with elevated right hemidiaphragm with some associated atelectasis. Last Vital Signs Temp Pulse Resp BP Pulse Ox 98.1 F 74 18 146/79 98 03/26/16 06:00 03/26/16 06:00 03/26/16 06:00 03/26/16 06:00 03/25/16 21:00 Gen: NAD at rest Heart: RRR Lung: decreased breath sounds right base Abd: soft, nontender Ext: no edema CBC, BMP 03/26/16 05:35 03/26/16 05:35 Active Medications Alprazolam (Xanax -) 2 mg PO Q12H PRN PRN Reason: ANXIETY Last Admin: 03/25/16 21:58 Dose: 2 mg Atenolol (Tenormin -) 50 mg PO DAILY [facility] Last Admin: 03/26/16 11:08 Dose: 50 mg Atorvastatin Calcium (Lipitor -) 20 mg PO HS [facility] Last Admin: 03/25/16 21:55 Dose: 20 mg Mirtazapine (Remeron -) 45 mg PO HS [facility] Last Admin: 03/25/16 21:55 Dose: 45 mg Nifedipine (Procardia Xl -) 30 mg PO DAILY [facility] Last Admin: 03/26/16 11:08 Dose: 30 mg Ondansetron HCl (Zofran Odt -) 8 mg SL Q6H PRN PRN Reason: NAUSEA AND/OR VOMITING Last Admin: 03/24/16 20:48 Dose: 8 mg Quetiapine Fumarate (Seroquel -) 400 mg PO HS [facility] A/P Altered Mental Status resolved Hyponatremia improving Acute on Chronic Renal Failure Smoker Elevated Right Hemidiaphragm Atelectasis - incentive spirometry - smoking cessation - repeat CXR as outpt - sniff test if diaphragm remains elevated - DVT prophylaxis
--- NOTE | 2016-03-26 13:03 | PN ---
Progress Note, Physician Chief Complaint: Patient seen in her bed. Seems comfortable. Alert and awake Denies any pains. Maintains good urine output - Current Medication List Current Medications: Active Medications Alprazolam (Xanax -) 2 mg PO Q12H PRN PRN Reason: ANXIETY Last Admin: 03/25/16 21:58 Dose: 2 mg Atenolol (Tenormin -) 50 mg PO DAILY [facility] Last Admin: 03/26/16 11:08 Dose: 50 mg Atorvastatin Calcium (Lipitor -) 20 mg PO [facility] Last Admin: 03/25/16 21:55 Dose: 20 mg Mirtazapine (Remeron -) 45 mg PO [facility] Last Admin: 03/25/16 21:55 Dose: 45 mg Nifedipine (Procardia Xl -) 30 mg PO DAILY [facility] Last Admin: 03/26/16 11:08 Dose: 30 mg Ondansetron HCl (Zofran Odt -) 8 mg SL Q6H PRN PRN Reason: NAUSEA AND/OR VOMITING Last Admin: 03/24/16 20:48 Dose: 8 mg Quetiapine Fumarate (Seroquel -) 400 mg PO [facility] - Objective Vital Signs: Vital Signs Temperature 98.1 F 03/26/16 06:00 Pulse Rate 74 03/26/16 06:00 Respiratory Rate 18 03/26/16 06:00 Blood Pressure 146/79 03/26/16 06:00 O2 Sat by Pulse Oximetry (%) 98 03/25/16 21:00 Constitutional: Yes: Well Nourished, No Distress, Calm Eyes: Yes: Conjunctiva Clear, EOM Intact Neck: Yes: Supple Cardiovascular: Yes: Regular Rate and Rhythm, S1, S2 Respiratory: Yes: Regular, CTA Bilaterally Gastrointestinal: Yes: Normal Bowel Sounds, Soft Neurological: Yes: Alert, Oriented Psychiatric: Yes: Alert, Oriented Labs: CBC, BMP 03/26/16 05:35 03/26/16 05:35 Problem List - Problems (1) Acute metabolic encephalopathy Code(s): G93.41 - METABOLIC ENCEPHALOPATHY (2) Cellulitis of right elbow Code(s): L03.113 - CELLULITIS OF RIGHT UPPER LIMB (3) Gait abnormality Code(s): R26.9 - UNSPECIFIED ABNORMALITIES OF GAIT AND MOBILITY (4) Hyponatremia syndrome Code(s): E87.1 - HYPO-OSMOLALITY AND HYPONATREMIA (5) Hyponatremia with decreased serum osmolality Code(s): E87.1 - HYPO-OSMOLALITY AND HYPONATREMIA (6) Anemia Code(s): D64.9 - ANEMIA, UNSPECIFIED (7) Bipolar disorder Code(s): F31.9 - BIPOLAR DISORDER, UNSPECIFIED (8) Hypertension Code(s): I10 - ESSENTIAL (PRIMARY) HYPERTENSION Assessment/Plan Serum Sodium improving in this patient with Acute Hyponatremia Patient's Renal functions improving towards her baseline. Has some degree of CKD, possibly Microvascular Renal disease. Will continue the current regimen DC IV fluids Olivia Becker MD
--- NOTE | 2016-03-26 15:08 | CONS ---
PHYSICAL MEDICINE REHABILITATION CONSULTATION DATE OF CONSULTATION: 03/26/2016 HISTORY OF PRESENT ILLNESS: The patient is a 65-year-old woman with past medical history of bipolar disorder, who was admitted with nausea, vomiting, and altered mental status on March 24, 2016. Admitting blood work showed hyponatremia with a sodium of 122, low chloride at 89, low CO2 at 15. Her creatinine was elevated at 1.7. Normal potassium level, 3.9. WBCs on admission normal, 7.3; hemoglobin 14.1; and platelet count 290. CT of the head showed no evidence of acute intracranial pathology. There was a mild degree of diffuse cerebral atrophy with ventricular dilatation and sulcal widening. Patient was started on IV fluids and also underwent a CT of the chest which showed a right lower lobe opacity, possible atelectasis , mild elevation of the diaphragm. CT of the abdomen done March 25 showed no pancreatitis, chronic or acute, and no evidence of malignancy. Carotid ultrasound showed no hemodynamically significant stenosis. Repeat blood work: Her sodium improved to 131; creatinine improved to 1.2; chloride improved to 93; normal potassium, 4.0. Patient states that she is feeling improved. No current complaints of nausea or vomiting, but she states she does not feel herself. She is not a very good historian. She states she was using a walker prior to admission and has a home health aide to help her with dressing, bathing, and getting out of the house. Current function: She states she has not been out of bed. Review of past medical and surgical history taken from the medical record includes bipolar disorder, hyperlipidemia, chronic gait disorder. SOCIAL HISTORY: As above. She lives alone in an apartment. She states she has 1-1/2 steps to enter and premorbidly used a walker. She had an aide at home to assist in bathing and ADLs. Current function: Not ambulatory. REVIEW OF SYSTEMS: She denies any headache, any lightheadedness, or dizziness, any blurry vision, double vision, change in vision, any current nausea/vomiting. She did have nausea and vomiting which have improved. No chest pain, shortness of breath, dyspnea on exertion, night orthopnea. No current abdominal pain, although she states when she came in she had abdominal pain. No diarrhea. No bowel, bladder incontinence; retention; or change. No dysuria, polyuria. She states she has no current joint arthralgias. No numbness, tingling, but overall, she feels weak. No significant weight loss or weight gain. PHYSICAL EXAMINATION: General: Patient is seen lying supine in bed. She is awake and cooperative and in no acute distress, although she is anxious. HEENT: She is normocephalic and atraumatic. Her extraocular muscles appear full. She has no obvious facial weakness. No oral ulcers. Neck: Supple. Extremities: Without any pitting edema or calf tenderness. Skin: Without any rash or noted breakdown. Neuromuscular: She is awake, alert. She is oriented to person, place, and knew the exact date. Cranial nerves 2-12 appear grossly intact. She has good range of motion throughout her upper extremities except for her elbow which has an IV in and lacks a few degrees of extension. Good range of motion in the lower extremities. No gross arthritic change. At least 4/5 strength throughout her upper extremity, 3+/5 hip girdle strength and knee extensor strength, 3+ to 4-/5; good dorsiflexion and plantar flexion. Normal sensation to light touch, pinprick, and reflexes. Unable to stand or ambulate her at this time. She states she does not feel up to it and no assistive device available. OVERALL IMPRESSION: 1. Deficits in mobility and activities of daily living which appear multifactorial. 2. Deconditioning. 3. Hyponatremia, improving. 4. Status post nausea, vomiting, abdominal pain; possibly due to hyponatremia. 5. Right lower lobe opacity, possible atelectasis. 6. Bipolar disorder. 7. Hyperlipidemia. 8. Tobacco user. 9. Overweight. PLAN/SUGGESTIONS: 1. Physical therapy at the bedside to include bed mobility, transfers, gait training, strengthening, reconditioning, gait training if appropriate. 2. Out of bed to chair. 3. Would suggest deep venous thrombosis prophylaxis with subcutaneous heparin until more mobile unless medically contraindicated. Currently, she is using SCDs, but once she starts to get out of bed, would suggest subcutaneous heparin. 4. Follow up sodium and electrolyte levels. 5. Discharge disposition to be determined based on her ability to ambulate and the amount of hours her aide is with her at home. May need short-term rehab until more mobile; in which case, Case Management followup. Thank you for this consultation. JENNY SIMONS M.D. [id number] MTDChrissie
--- NOTE | 2016-03-26 19:14 | PN ---
GI Progress Note Subjective: Patient just finished a large meal. There has been no vomiting for 48 hours - Objective Vital Signs: Vital Signs Temperature 97.6 F 03/26/16 14:35 Pulse Rate 70 03/26/16 14:35 Respiratory Rate 16 03/26/16 14:35 Blood Pressure 141/81 03/26/16 14:35 O2 Sat by Pulse Oximetry (%) 98 03/25/16 21:00 Constitutional: Well Nourished HENT: Yes: Normocephalic Neck: Yes: WNL Cardiovascular: Yes: Regular Rate and Rhythm Respiratory: Yes: CTA Bilaterally Gastrointestinal Inspection: Yes: WNL ...Auscultate: Yes: Normoactive Bowel Sounds ...Palpate: Yes: Soft. No: Tenderness Integumentary: Yes: WNL Neurological: Yes: Confusion, Dysarthria (which seems voluntary as she has full speech capacity when she needs to communicate her needs or wants.) Labs: CBC, BMP 03/26/16 05:35 03/26/16 05:35 Assessment/Plan 65 F brought to hospital for evaluation of AMS and vomiting and found to have a hyponatremia. She was likely vomiting secondary to electrolyte disturbance. No vomiting today. (48 hours) On full diet and tolerating that No need for swallowing study as patient has no problem taking solids and liquids. Will sign off. Please call should my services be required
--- NOTE | 2016-03-26 19:25 | CONSULT ---
Consult - text type - Consultation Consultation Note: NEUROLOGY CONSULTATION is greatly appreciated: This 65 yo RH woman with h/o HTN, Chol, and bipolar disease is maintained on atorvastatin, alprazelam, atenolol, mirtazepine, nifedepine, and quetiapine. Admitted after few days of feeling unwell, unsteady with nausea and progressive vomiting and confusion. Na+ on admission was 119 mg%. Now feels better but complains of episodes of stereotyped speech arrest. Staff describes episodes of slurred or absent speech (often with patient gesturing and pointing to her mouth) rapidly alternating with fluent, purposeful , speech. Case discussed with Dr. Mahajan. Dr. Flores's consult read and appreciated. CT and MRI of brain (both reviewed): Both are normal Carotid duplex Doppler: Normal. TO: No evidence of external head trauma. No bruits. Cor: reg (80's) NEURO: Awake, alert, cooperative. Remembers me. Ox3. Fluent speech. CN's: II-XII normal without Nystagmus. Gag and tongue mov'ts are normal. Motor: No drift or tremor. Normal strength, bulk. Normal reflexes. Toes downgoing. Coord: No FTN dystaxia Sensory: Normal Gait: Slightly wide-based IMP: Normal neurological exam. Toxic-metabolic encephalopathy due to hyponatremia and dehydration. Doubt episodes of apparent speech arrest are related to TIA, seizure, or are even physiological. Suggest: Continue current regimen for now. Neuro f/u as out patient for EEG in eval of seizures. Psyche f/u as out patient to consider modification of the antidepressant and bipolar regimen. Normal TSH noted. Also check B12. Mobilize OO bed to chair. PT for gait. Thank you very much, Darryl Mota MD
[2016-03-26] MEDS ORDERED: PT OWN MED DRAWER 7, Y5N ONE (21:36)
[2016-03-26] MEDS: MIRTAZAPINE 15 MG TABLET (FP) PO SCH (21:49)
[2016-03-26] MEDS: ALPRAZolam 2 MG TABLET PO PRN (21:50)
[2016-03-26] MEDS: ATORVASTATIN CA 20 MG TABLET (FP) PO SCH (21:50)
[2016-03-26] MEDS: QUEtiapine FUMARATE 200 MG TABLET PO SCH (21:51)
[2016-03-27] MEDS: ALPRAZolam 2 MG TABLET PO PRN ×2 (07:53→17:31)
--- NOTE | 2016-03-27 09:24 | PN ---
Progress Note, Physician History of Present Illness: LETHARGIC BUT AROUSABLE - Current Medication List Current Medications: Active Medications Alprazolam (Xanax -) 2 mg PO Q12H PRN PRN Reason: ANXIETY Last Admin: 03/27/16 07:53 Dose: 2 mg Atenolol (Tenormin -) 50 mg PO DAILY [facility] Last Admin: 03/26/16 11:08 Dose: 50 mg Atorvastatin Calcium (Lipitor -) 20 mg PO [facility] Last Admin: 03/26/16 21:50 Dose: 20 mg Mirtazapine (Remeron -) 45 mg PO HS [facility] Last Admin: 03/26/16 21:49 Dose: 45 mg Nifedipine (Procardia Xl -) 30 mg PO DAILY [facility] Last Admin: 03/26/16 11:08 Dose: 30 mg Ondansetron HCl (Zofran Odt -) 8 mg SL Q6H PRN PRN Reason: NAUSEA AND/OR VOMITING Last Admin: 03/24/16 20:48 Dose: 8 mg Quetiapine Fumarate (Seroquel -) 400 mg PO [facility] Last Admin: 03/26/16 21:51 Dose: 400 mg - Objective Vital Signs: Vital Signs Temperature 97.5 F L 03/27/16 06:44 Pulse Rate 78 03/27/16 06:44 Respiratory Rate 16 03/27/16 06:44 Blood Pressure 129/66 03/27/16 06:44 O2 Sat by Pulse Oximetry (%) 98 03/26/16 21:00 Cardiovascular: Yes: Regular Rate and Rhythm Respiratory: Yes: Regular, CTA Bilaterally Gastrointestinal: Yes: Normal Bowel Sounds, Soft Neurological: Yes: Lethargy Labs: CBC, BMP 03/26/16 05:35 03/26/16 05:35 Problem List - Problems (1) Acute metabolic encephalopathy Assessment/Plan: MORE LEHARGIC THIS AM CHECK LABS AND MONITOR PT UNSTEADY--CONSIDER SNF Code(s): G93.41 - METABOLIC ENCEPHALOPATHY (2) Hyponatremia syndrome Assessment/Plan: IMPROVING--NA 135 MONITOR RENAL CONSULT NOTED DC IVF Code(s): E87.1 - HYPO-OSMOLALITY AND HYPONATREMIA (3) Altered mental status Assessment/Plan: MAYBE DUE TO ABOVE MRI NO ACUTE DS Code(s): R41.82 - ALTERED MENTAL STATUS, UNSPECIFIED Qualifiers: Altered mental status type: unspecified Qualified Code(s): R41.82 - Altered mental status, unspecified (4) Bipolar disorder Assessment/Plan: PSYCH ON CASE Code(s): F31.9 - BIPOLAR DISORDER, UNSPECIFIED (5) Gait abnormality Assessment/Plan: PT NEURO Code(s): R26.9 - UNSPECIFIED ABNORMALITIES OF GAIT AND MOBILITY (6) Abnormal CAT scan Assessment/Plan: WILL NEED MONITORING WITH F/U CT VS PET Laboratory Tests 03/25/16 10:20 Carcinoembryonic Ag 0.9 Code(s): R93.8 - ABNORMAL FINDINGS ON DIAGNOSTIC IMAGING OF BODY STRUCTURES (7) Atelectasis Assessment/Plan: INCENTIVE SPIROMETRY Code(s): J98.11 - ATELECTASIS
[2016-03-27] MEDS: ATENOLOL 50 MG TABLET (FP) PO SCH (11:02)
[2016-03-27] MEDS: NIFEdipine E.R. 30 MG TABLET (FP) PO SCH (11:02)
--- NOTE | 2016-03-27 11:18 | PN ---
Progress Note (short form) - Note Progress Note: Renal Follow up for hyponatremia Pt seen and examined at the bedside awake and alert eating breakfast wants to go home denies any pain, N/V Vital Signs Temperature 97.2 F L 03/27/16 11:09 Pulse Rate 77 03/27/16 11:09 Respiratory Rate 18 03/27/16 11:09 Blood Pressure 141/96 03/27/16 11:09 O2 Sat by Pulse Oximetry (%) 96 03/27/16 09:00 Intake & Output 03/24/16 03/25/16 03/26/16 03/27/16 23:59 23:59 23:59 23:59 Intake Total 740 2195 2195 450 Output Total 1500 1100 Balance -760 1095 2195 450 Weight 185 lb Gen: NAD, awake and alert CVS: RRR, No M/R Lungs: CTA,no rales or wheeze Abd: soft NT/ND Ext: No edema : No bladder distension Neuro: Awake and alert CBC, BMP 03/26/16 05:35 03/26/16 05:35 Current Medications Alprazolam (Xanax -) 2 mg PO Q12H PRN PRN Reason: ANXIETY Last Admin: 03/27/16 07:53 Dose: 2 mg Atenolol (Tenormin -) 50 mg PO DAILY [facility] Last Admin: 03/27/16 11:02 Dose: 50 mg Atorvastatin Calcium (Lipitor -) 20 mg PO HS [facility] Last Admin: 03/26/16 21:50 Dose: 20 mg Mirtazapine (Remeron -) 45 mg PO HS [facility] Last Admin: 03/26/16 21:49 Dose: 45 mg Nifedipine (Procardia Xl -) 30 mg PO DAILY [facility] Last Admin: 03/27/16 11:02 Dose: 30 mg Ondansetron HCl (Zofran Odt -) 8 mg SL Q6H PRN PRN Reason: NAUSEA AND/OR VOMITING Last Admin: 03/24/16 20:48 Dose: 8 mg Quetiapine Fumarate (Seroquel -) 400 mg PO HS [facility] Last Admin: 03/26/16 21:51 Dose: 400 mg A/P 65 year old woman with PMhx of Bipolar disorder, Anxiety, Hyperlipidemia, GERD, CKD presented with N/V and found to have Na of 119 #Acute Hyponatremia Etiology likely volume depletion in setting of N/V serum Na improved with isotonic saline off IVF now no further N/V and tolerating oral diet refused labs today ok for discharge with outpatient BMP in 2-3 days Thank you Augusto Riley DO
--- NOTE | 2016-03-27 11:47 | PN ---
Progress Note (short form) - Note Progress Note: PULMONARY APPEARS MILDLY CONFUSED ? BASELINE VSS/AFEBRILE FAMILY PRESENT PALE/ANICTERIC CLEAR LUNG ELLIS S1S2 BS+ NO EDEMA LABS/MEDS/NOTES/IMAGING REVIEWED Altered Mental Status resolved Hyponatremia improving Acute on Chronic Renal Failure Smoker Elevated Right Hemidiaphragm Atelectasis - incentive spirometry - smoking cessation - repeat CXR as outpt - sniff test if diaphragm remains elevated - DVT prophylaxis Robert GEORGE
[2016-03-27] MEDS: NICOTINE 21 MG/24 HOURS TOPICAL PATCH TD SCH (13:32)
[2016-03-27 13:37] LABS: BASOPHIL 1.3 % (0-2.0); EOSINOPHIL 0.5 % (0-4.5); MCH 27.8 pg (25.7-33.7); MCHC 33.6 g/dl (32.0-36.0); MEAN CELL VOLUME 82.7 fl (80-96); MEAN PLT VOLUME 8.2 fl (7.5-11.1); NEUTROPHILS 64.6 % (42.8-82.8); PLATELET COUNT 225 K/MM3 (134-434); RDW 13.2 % (11.6-15.6); WHITE BLOOD COUNT 6.8 K/mm3 (4.0-10.0)
[2016-03-27 14:02] LABS: ALBUMIN 3.1 g/dl (3.4-5.0); BILIRUBIN,TOTAL 0.4 mg/dL (0.2-1.0); CALCIUM 8.5 mg/dL (8.5-10.1); CREATININE 1.4 mg/dL (0.55-1.02); TOT PROT 6.6 g/dl (6.4-8.2)
[2016-03-27] MEDS ORDERED: PT OWN MED DRAWER 7, Y5N ONE (21:39)
[2016-03-27] MEDS: MIRTAZAPINE 15 MG TABLET (FP) PO SCH (21:43)
[2016-03-27] MEDS: ATORVASTATIN CA 20 MG TABLET (FP) PO SCH (21:44)
[2016-03-27] MEDS: QUEtiapine FUMARATE 200 MG TABLET PO SCH (21:44)
[2016-03-27] MEDS ORDERED: ALPRAZolam 2 MG TABLET PO ONE (23:00)
[2016-03-28] MEDS: ONDANSETRON *ODT* 4 MG TABLET SL PRN (02:11)
--- NOTE | 2016-03-28 08:27 | DS ---
Physical Examination Vital Signs: Vital Signs Temperature 98.3 F 03/28/16 06:00 Pulse Rate 90 03/28/16 06:00 Respiratory Rate 18 03/28/16 06:00 Blood Pressure 119/68 03/28/16 06:00 O2 Sat by Pulse Oximetry (%) 97 03/27/16 21:00 Findings/Remarks: no new complaints wants to go home Cardiovascular: Yes: Regular Rate and Rhythm Respiratory: Yes: Regular, CTA Bilaterally Gastrointestinal: Yes: Normal Bowel Sounds, Soft Neurological: Yes: Alert, Oriented, Pre-Existing Deficit Labs: CBC, BMP 03/27/16 13:20 03/27/16 13:20 Discharge Summary Reason For Visit: HYPONATREMIA SYNDROME, ENCEPHALOPATHY Current Active Problems Abnormal CAT scan (Acute) Acute metabolic encephalopathy (Acute) Atelectasis (Acute) Cellulitis of right elbow (Acute) Elbow fracture, right (Acute) Elevated diaphragm (Acute) Gait abnormality (Acute) Hyponatremia syndrome (Acute) Hyponatremia with decreased serum osmolality (Acute) MRSA (methicillin resistant staph aureus) culture positive (Acute) Open fracture (Acute) Sepsis (Acute) Hospital Course: HISTORY OF BIPOLAR DISORDER, HTN, HERE WITH AMS FOUND TO HAVE HYPONATREMIA, CT HEAD NEGATIVE FOR ACUTE CVA. RENAL EVAL IN PROGRESS, MORE ALERT WITH IVF. History Source: Patient, Medical Record - Past Medical History Cardiovascular: Yes: Hyperlipdemia Infectious Disease: Yes: MRSA (right elbow) Psych: Yes: Anxiety, Bipolar - Smoking History Smoking history: Current every day smoker Have you smoked in the past 12 months: Yes Aproximately how many cigarettes per day: 20 Problems (1) Acute metabolic encephalopathy Assessment/Plan: MORE LEHARGIC THIS AM CHECK LABS AND MONITOR PT UNSTEADY--CONSIDER SNF Code(s): G93.41 - METABOLIC ENCEPHALOPATHY (2) Hyponatremia syndrome Assessment/Plan: IMPROVING--NA 135 MONITOR RENAL CONSULT NOTED DC IVF Code(s): E87.1 - HYPO-OSMOLALITY AND HYPONATREMIA (3) Altered mental status Assessment/Plan: MAYBE DUE TO ABOVE MRI NO ACUTE DS Code(s): R41.82 - ALTERED MENTAL STATUS, UNSPECIFIED Qualifiers: Altered mental status type: unspecified Qualified Code(s): R41.82 - Altered mental status, unspecified (4) Bipolar disorder Assessment/Plan: PSYCH ON CASE Code(s): F31.9 - BIPOLAR DISORDER, UNSPECIFIED (5) Gait abnormality Assessment/Plan: PT NEURO Code(s): R26.9 - UNSPECIFIED ABNORMALITIES OF GAIT AND MOBILITY (6) Abnormal CAT scan Assessment/Plan: WILL NEED MONITORING WITH F/U CT VS PET Laboratory Tests 03/25/16 10:20 Carcinoembryonic Ag 0.9 Code(s): R93.8 - ABNORMAL FINDINGS ON DIAGNOSTIC IMAGING OF BODY STRUCTURES (7) Atelectasis Assessment/Plan: INCENTIVE SPIROMETRY Code(s): J98.11 - ATELECTASIS Condition: Improved - Instructions Diet, Activity, Other Instructions: follow up cat scan of chest in 3 months Disposition: VNS/HOME HEALTH CARE - Home Medications Comprehensive Discharge Medication List: Ambulatory Orders Atorvastatin Ca [Lipitor] 10 mg PO HS 08/14/15 Polyethylene Glycol 3350 [Miralax 119 gm Btl -] 17 gm PO DAILY bottle 09/07/15 Acetaminophen [Tylenol .Regular Strength -] 650 mg PO Q4H PRN #0 tablet Mirtazapine [Remeron -] 45 mg PO HS #30 tablet 03/09/16 Nifedipine ER [Procardia XL -] 30 mg PO DAILY #14 tab.er.24 03/09/16 Ondansetron [Zofran -] 4 mg PO TID PRN #21 tablet 03/09/16 Quetiapine Fumarate [Seroquel -] 400 mg PO HS #30 tablet 03/09/16 Alprazolam [Xanax] 2 mg PO Q12H PRN #0 tablet MDD 2 03/28/16 Atenolol [Tenormin -] 50 mg PO DAILY #30 tablet 03/28/16
[2016-03-28 08:54] LABS: BASOPHIL 0.8 % (0-2.0); EOSINOPHIL 0.4 % (0-4.5); MCH 27.7 pg (25.7-33.7); MCHC 33.5 g/dl (32.0-36.0); MEAN CELL VOLUME 82.5 fl (80-96); MEAN PLT VOLUME 8.3 fl (7.5-11.1); NEUTROPHILS 61.8 % (42.8-82.8); PLATELET COUNT 233 K/MM3 (134-434); RDW 13.7 % (11.6-15.6); WHITE BLOOD COUNT 7.2 K/mm3 (4.0-10.0)
[2016-03-28] MEDS: NIFEdipine E.R. 30 MG TABLET (FP) PO SCH (09:33)
[2016-03-28] MEDS: ATENOLOL 50 MG TABLET (FP) PO SCH (09:33)
[2016-03-28] MEDS: ALPRAZolam 2 MG TABLET PO PRN (09:34)
[2016-03-28] MEDS: NICOTINE 21 MG/24 HOURS TOPICAL PATCH TD SCH (09:34)
[2016-03-28 09:40] VITALS: BP 151/79; PULSE 93; TEMP 97.2
[2016-03-28] MEDS ORDERED: MAG HYDROX/AL HYDROX/SIMETH 30 ML UNIT-DOSE CUP PO ONE (11:30)
== END 2016-03-28 13:15 | disposition home health service (06) | DRG 640 ==
LOC: JER 09:20 → UNDOADMIN 12:22 → JERBED 12:22 → J4S 15:35 → JERBED 20:18
PROVIDERS: ADMIT Family Medicine; ATTEND Family Medicine
DX: E86.0 Dehydration (principal); G92 Toxic encephalopathy; J98.11 Atelectasis; N17.9 Acute kidney failure, unspecified; E87.1 Hypo-osmolality and hyponatremia; R26.9 Unspecified abnormalities of gait and mobility; E78.5 Hyperlipidemia, unspecified; F17.210 Nicotine dependence, cigarettes, uncomplicated; F31.9 Bipolar disorder, unspecified; I12.9 Hypertensive chronic kidney disease with stage 1 through stage 4 chronic kidney disease, or unspecified chronic kidney disease; N18.9 Chronic kidney disease, unspecified; K21.9 Gastro-esophageal reflux disease without esophagitis; R41.82 Altered mental status, unspecified
CPT/HCPCS: 36415; 70450-TC; 70551-TC; 71010-TC; 71250-TC; 74176-TC; 80048; 80053; 81003; 81015; 82150; 82378; 82436; 82550; 83605; 83690; 83930; 83935; 84133; 84300; 84443; 84484; 84550; 85025; 85027; 86301; 87040; 87086; 93005; 93010; 93306-TC; 93880-TC; 94010; 97116-GP; 97162-PG; 99285-25; Q9967

== ENCOUNTER 2016-09-06 13:44 | Inpatient (IN) | payer MEDICARE, OTHER ==
--- NOTE | 2016-09-06 14:00 | PDOC ---
Attending Attestation - Resident Resident Name: Martin Coronel - HPI HPI: 09/06/16 17:03 pt presents to the ED after brought in by her son for altered mental status. On arrival to the ED, patient found to be alert, moving all extremities, but confused and unable to give history. Similar reactions in the past with UTI and hyponatremia. 09/06/16 17:09 - Physicial Exam PE: 09/06/16 17:09 Initially patient was alert but agitated and confused. Appeared non focal. Hypertensive to 190's/100's. Patient had a witnessed tonic clonic seizure in the Ed. Broke with ativan 4 mg. - Medical Decision Making 09/06/16 17:13 Patient presented to the ED with altered mental status. initial work up for infection/intracranial lesion negative. After seizure, patient observed to be very hypertensive. Will check repeat CT head to rule out bleed. Son reports that patient may have missed doses of xanax--may be benzo withdrawal. Will consult neurology and admit to medicine for new onset seizure.
--- NOTE | 2016-09-06 14:16 | PDOC ---
History of Present Illness - General Chief Complaint: Altered Mental Status Stated Complaint: ALTERED MENTAL STATUS,R/O UTI Time Seen by Provider: 09/06/16 13:48 - History of Present Illness Initial Comments: 09/06/16 14:53 Patient is a 66 year old female with a history of anxiety, bipolar disorder, HTN , HLD who presents with altered mental status. Patient is oriented to self only and history is limited at this time. Patient's son was present on arrival and states that she has been complaining of dysuria and pain on urination. Patient complains of "itchiness" in the vaginal region and abdominal pain but is unable to vocalize the location of her abdominal pain. She is unable to accurately undergo review of systems. Past History - Past Medical History Allergies/Adverse Reactions: Allergies Allergy/AdvReac Type Severity Reaction Status Date / Time amoxicillin trihydrate Allergy Intermediate Difficulty Verified 09/06/16 13:45 [From Augmentin] Breathing potassium clavulanate Allergy Intermediate Difficulty Verified 09/06/16 13:45 [From Augmentin] Breathing clindamycin Allergy Verified 09/06/16 13:45 Sulfa (Sulfonamide Allergy Verified 09/06/16 13:45 Antibiotics) Home Medications: Ambulatory Orders Atorvastatin Ca [Lipitor] 10 mg PO HS 08/14/15 Polyethylene Glycol 3350 [Miralax 119 gm Btl -] 17 gm PO DAILY bottle 09/07/15 Acetaminophen [Tylenol .Regular Strength -] 650 mg PO Q4H PRN #0 tablet Mirtazapine [Remeron -] 45 mg PO HS #30 tablet 03/09/16 Nifedipine ER [Procardia XL -] 30 mg PO DAILY #14 tab.er.24 03/09/16 Ondansetron [Zofran -] 4 mg PO TID PRN #21 tablet 03/09/16 Quetiapine Fumarate [Seroquel -] 400 mg PO HS #30 tablet 03/09/16 Alprazolam [Xanax] 2 mg PO Q12H PRN #0 tablet MDD 2 03/28/16 Atenolol [Tenormin -] 50 mg PO DAILY #30 tablet 03/28/16 Anemia: No GI Disorders: (acid reflux) HTN: Yes Hypercholesterolemia: Yes Psychiatric Problems: Yes (OCD. ANXIETY. DEPRESSION.) - Surgical History Abdominal Surgery: Yes Cholecystectomy: Yes - Immunization History Immunization Up to Date: Yes - Psycho/Social/Smoking Cessation Hx Anxiety: Yes Suicidal Ideation: No Smoking History: Current every day smoker Have you smoked in the past 12 months: Yes Number of Cigarettes Smoked Daily: 40 Cigars Per Day: 0 Information on smoking cessation initiated: No 'Breaking Loose' booklet given: 02/16/16 Hx Alcohol Use: No Drug/Substance Use Hx: No Substance Use Type: None Hx Substance Use Treatment: No Review of Systems - Review of Systems Able to Perform ROS?: No (AMS) *Physical Exam - Vital Signs Last Vital Signs Temp Pulse Resp BP Pulse Ox 98.7 F 107 H 20 197/104 100 09/06/16 13:45 09/06/16 13:45 09/06/16 13:45 09/06/16 13:45 09/06/16 13:45 - Physical Exam Comments: 09/06/16 15:19 General Appearance: Nourished in no acute distress HEENT: No Pharyngeal Erythema, Tonsillar Exudate, Tonsillar Erythema Respiratory/Chest: Lungs Clear, Normal Breath Sounds. No Crackles, Rales, Rhonchi, Wheezing Cardiovascular: Regular Rhythm, Regular Rate. No Murmur, Gallop/S3, Gallop/S4 Gastrointestinal/Abdominal: Normal Bowel Sounds, Soft, and Diffuse tenderness to palpation though limited exam due to patient's metal status Extremity: Normal Capillary Refill. No Coldness, Cyanosis Integumentary: Normal Color, Dry, Warm Neurologic: Alert and Oriented only to self ED Treatment Course - LABORATORY CBC & Chemistry Diagram: 09/06/16 15:00 09/06/16 15:00 - RADIOLOGY Radiology Studies Ordered: Category Date Time Status HEAD CT WITHOUT CONTRAST [CT] Stat CT Scan 09/06/16 14:12 Ordered CHEST PA & LAT [RAD] Stat Radiology 09/06/16 14:12 Ordered Medical Decision Making - Medical Decision Making 09/06/16 15:09 Patient is a 66 year old female with a history of bipolar disorder, HTN, HLD and anxiety who presents with altered mental status. Given the patient's ams it is difficult to obtain a history and on the differential are sepsis, UTI, Thyroid disorder, pneumonia, glucose, electrolyte abnormalities and intracranial bleed. We will obtain a set of labs including a cbc and lactate to evaluate for sepsis. We will obtain a cmp to evaluate electrolyte abnormalities. We will obtain a UA to evaluate for UTI and a TSH to evaluate for Thyroid dysfunction. We will also get a chest radiograph and head ct to rule out pneumonia and intracranial hemorrhage. 09/06/16 17:13 Patient experienced a witnessed seizure in the ED. Patient received 4mg of ativan which assisted in the resolution her seizure. Patient's blood pressure was read as systolic of 258 and she was given 200mg of labetolol. We were able to get in contact with her son Dr. Richard Beckham who reported that the patient was at baseline yesterday before becoming acutely altered this morning. He states that it is possible that she missed her dosage of xanax yesterday afternoon and evening. He reports that she has been complaining of burning on urination but otherwise has been at baseline. It is possible that the patient' s missed dosing of xanax could have precipitated her seizure. Patient's work- up has been negative thus far. We will do a repeat CT head given her BP spike to 258 and seizure. We will consult neurology as well. 09/06/16 18:12 We consulted neurology who agrees that the patient's seizure may be due to her missed xanax doses. We will admit given it's her first seizure. 09/06/16 18:[address] Lisa Méndez regarding admission for the patient and left a message at 18:54. 09/06/16 19:[address] Richard Beckham at [phone] with any updates. 09/06/16 19:37 Signed out patient to Dr. Méndez with the admitting team. *DC/Admit/Observation/Transfer Diagnosis at time of Disposition: New onset seizure Altered mental status Qualifiers: Altered mental status type: unspecified Qualified Code(s): R41.82 - Altered mental status, unspecified - Discharge Dispostion Condition at time of disposition: Stable - Attestations Physician Attestion: 09/06/16 18:27 I, Dr. Martin Coronel, attest that this document has been prepared under my direction and personally reviewed by me in its entirety. I further attest, that it accurately reflects all work, treatment, procedures and medical decision -making performed by me.
[2016-09-06 15:19] LABS: URINE APPEARANCE CLEAR; URINE BILIRUBIN NEGATIVE (NEGATIVE); URINE COLOR STRAW; URINE GLUCOSE (UA) NEGATIVE (NEGATIVE); URINE KETONE NEGATIVE (NEGATIVE); URINE LEUK ESTERASE NEGATIVE (NEGATIVE); URINE NITRITE NEGATIVE (NEGATIVE); URINE UROBILINOGEN NEGATIVE E.U./dl (0.2-1.0)
[2016-09-06 15:20] LABS: BASOPHIL 0.4 % (0-2.0); MCH 27.9 pg (25.7-33.7); MCHC 33.7 g/dl (32.0-36.0); MEAN CELL VOLUME 82.8 fl (80-96); MEAN PLT VOLUME 8.9 fl (7.5-11.1); NEUTROPHILS 81.5 % (42.8-82.8); PLATELET COUNT 301 K/MM3 (134-434); RDW 14.6 % (11.6-15.6); WHITE BLOOD COUNT 5.5 K/mm3 (4.0-10.0)
[2016-09-06 15:26] LABS: URINE BLOOD 2+ (NEGATIVE); URINE PROTEIN 2+ (NEGATIVE)
[2016-09-06 15:27] LABS: URINE RBC 2 /hpf (0-3); URINE WBC <1 /hpf (3-5)
[2016-09-06 15:35] LABS: ALBUMIN 4.8 g/dl (3.4-5.0); ANION GAP 12 (8-16); BILIRUBIN,TOTAL 0.5 mg/dL (0.2-1.0); CALCIUM 10.9 mg/dL (8.5-10.1); CO2 25 mmol/L (21-32); CREATININE 1.4 mg/dL (0.55-1.02); GLUCOSE,RANDOM 121 mg/dL (74-106); SGOT/AST 19 U/L (15-37); SGPT/ALT 26 U/L (12-78); TOT PROT 9.8 g/dl (6.4-8.2)
[2016-09-06 15:44] LABS: ALK PHOS 101 U/L (45-117); THYROID STIMULATING HORMONE 1.94 uIU/ml (0.358-3.74)
[2016-09-06] MEDS ORDERED: LORazepam 2 MG/ML SDV VIAL ONE ×2 (16:55→16:58)
[2016-09-06] MEDS ORDERED: LORAZEPAM CARPU-JECT 2 MG/ML DISP.SYRIN IVPUSH ONE ×2 (16:56→17:30)
[2016-09-06] MEDS ORDERED: LABETALOL HCL 5 MG/1 ML (200MG/40ML VIAL) IVPB ONE (17:06)
[2016-09-06] MEDS ORDERED: LABETALOL HCL 5 MG/1 ML (100MG/20 ML VIAL) IVPUSH ONE (17:35)
[2016-09-06] MEDS ORDERED: chlordiazePOXIDE HCL 25 MG CAPSULE PO ONE (17:40)
[2016-09-06] MEDS ORDERED: ONDANSETRON 4 MG/2 ML VIAL IVPUSH ONE (18:00)
[2016-09-06] MEDS ORDERED: ONDANSETRON 4 MG/2 ML VIAL ONE (18:06)
[2016-09-06] MEDS ORDERED: chlordiazePOXIDE HCL 25 MG CAPSULE ONE (18:47)
[2016-09-06] MEDS ORDERED: FUROSEMIDE 40 MG/4 ML INJECTABLE VIAL ONE (20:08)
[2016-09-06] MEDS ORDERED: ALPRAZolam 2 MG TABLET PO ONE (20:23)
--- NOTE | 2016-09-06 20:29 | PDOC ---
*Physical Exam - Vital Signs Last Vital Signs Temp Pulse Resp BP Pulse Ox 97.0 F L 86 24 155/93 99 09/06/16 19:59 09/06/16 19:59 09/06/16 19:59 09/06/16 19:59 09/06/16 19:59 - Physical Exam General Appearance: Yes: Nourished. No: Apparent Distress HEENT: positive: EOMI, SHIRA, Normal Voice. negative: Pharyngeal Erythema, Tonsillar Exudate Neck: positive: Supple. negative: Tender, Lymphadenopathy (R), Lymphadenopathy (L) Respiratory/Chest: positive: Lungs Clear, Normal Breath Sounds. negative: Respiratory Distress Cardiovascular: positive: Regular Rhythm, Regular Rate Gastrointestinal/Abdominal: positive: Soft. negative: Tender Neurologic: positive: Fully Oriented, Alert, Responsive ED Treatment Course - LABORATORY CBC & Chemistry Diagram: 09/07/16 06:00 09/07/16 06:00 - ADDITIONAL ORDERS Additional order review: Laboratory Results 09/06/16 09/06/16 09/06/16 15:00 15:00 15:00 Sodium 129 L Potassium 3.6 Chloride 92 L Carbon Dioxide 25 Anion Gap 12 BUN 12 D Creatinine 1.4 H Creat Clearance w eGFR 37.62 POC Glucometer Random Glucose 121 H Lactic Acid 2.0 Calcium 10.9 H D Total Bilirubin 0.5 D AST 19 ALT 26 Alkaline Phosphatase 101 D Total Protein 9.8 H D Albumin 4.8 D TSH 1.94 D Urine Color Straw Urine Appearance Clear Urine pH 8.0 D Urine Protein 2+ H Urine Glucose (UA) Negative Urine Ketones Negative Urine Blood 2+ H Urine Nitrite Negative Urine Bilirubin Negative Urine Urobilinogen Negative Ur Leukocyte Esterase Negative Urine RBC 2 Urine WBC <1 09/06/16 14:35 Sodium Potassium Chloride Carbon Dioxide Anion Gap BUN Creatinine Creat Clearance w eGFR POC Glucometer 122.68857 Random Glucose Lactic Acid Calcium Total Bilirubin AST ALT Alkaline Phosphatase Total Protein Albumin TSH Urine Color Urine Appearance Urine pH Urine Protein Urine Glucose (UA) Urine Ketones Urine Blood Urine Nitrite Urine Bilirubin Urine Urobilinogen Ur Leukocyte Esterase Urine RBC Urine WBC 09/06/16 09/06/16 15:00 14:35 RBC 5.57 H D MCV 82.8 MCHC 33.7 RDW 14.6 MPV 8.9 Neutrophils % 81.5 D Lymphocytes % 14.8 D Monocytes % 3.3 L Eosinophils % 0.0 D Basophils % 0.4 POC Glucometer 122.92610 - Medications Given in the ED: ED Medications Discontinued Medications Generic Name Dose Route Start Last Admin Trade Name Deuce PRN Reason Stop Dose Admin Chlordiazepoxide HCl 50 mg 09/06/16 17:40 09/06/16 18:50 Librium - PO 09/06/16 17:41 50 mg ONCE ONE Administration Labetalol HCl 20 mg 09/06/16 17:35 09/06/16 17:20 Normodyne Injection - IVPUSH 09/06/16 17:36 20 mg NOW ONE Administration Lorazepam 2 mg 09/06/16 16:56 09/06/16 17:29 Ativan Injection - IVPUSH 09/06/16 16:57 2 mg ONCE ONE Administration Lorazepam 2 mg 09/06/16 17:30 09/06/16 17:32 Ativan Injection - IVPUSH 09/06/16 17:31 2 mg ONCE ONE Administration Ondansetron HCl 4 mg 09/06/16 18:00 09/06/16 18:08 Zofran Injection IVPUSH 09/06/16 18:01 4 mg ONCE ONE Administration Progress Note - Progress Note Progress Note: Received patient in stable condition from Dr. Coronel. Patient is the son of Dr. Beckham and has a history of Anxiety, Bipolar disorder , HTN, HLD. Patient presented with AMS and experienced 1x witnessed seizure in the ED that resolved following 4mg of Ativan. Patient has been admitted and waiting for room. Medical Decision Making - Medical Decision Making 09/06/16 20:06 Patients son called to bring our attention to patients hyponatremia (129) and mentioned she had a previous seizure when hyponatremic. Patient also hypochloremic and is receiving IV NS and making urine. Continue IV fluids. 09/06/16 20:26 Patient continually requesting Xanax to help her sleep. Her home dose of 2 mg, was given per Dr. Perea. 09/06/16 23:15 Patient resting comfortably. *DC/Admit/Observation/Transfer Diagnosis at time of Disposition: New onset seizure Altered mental status Qualifiers: Altered mental status type: unspecified Qualified Code(s): R41.82 - Altered mental status, unspecified - Discharge Dispostion Condition at time of disposition: Stable - Attestations Physician Attestion: 09/08/16 07:58 I, Dr. Tanner Morataya, attest that this document has been prepared under my direction and personally reviewed by me in its entirety. I further attest, that it accurately reflects all work, treatment, procedures and medical decision -making performed by me.
[2016-09-06] MEDS ORDERED: ALPRAZolam 2 MG TABLET ONE (20:46)
[2016-09-06 20:57] LABS: TROPONIN I < 0.02 ng/ml (0.00-0.05)
[2016-09-07] MEDS ORDERED: ONDANSETRON 4 MG TABLET PO PRN (02:10)
[2016-09-07 03:46] VITALS: BMI 27.7
[2016-09-07 07:46] LABS: BASOPHIL 0.3 % (0-2.0); EOSINOPHIL 0.3 % (0-4.5); MCH 28.4 pg (25.7-33.7); MCHC 34.5 g/dl (32.0-36.0); MEAN CELL VOLUME 82.2 fl (80-96); MEAN PLT VOLUME 8.5 fl (7.5-11.1); NEUTROPHILS 59.4 % (42.8-82.8); PLATELET COUNT 266 K/MM3 (134-434); RDW 14.9 % (11.6-15.6); WHITE BLOOD COUNT 8.4 K/mm3 (4.0-10.0)
[2016-09-07 08:15] LABS: ALBUMIN 3.4 g/dl (3.4-5.0); ANION GAP 9 (8-16); CALCIUM 9.2 mg/dL (8.5-10.1); CO2 29 mmol/L (21-32); CREATININE 1.8 mg/dL (0.55-1.02); GLUCOSE,RANDOM 101 mg/dL (74-106); SGOT/AST 15 U/L (15-37); SGPT/ALT 17 U/L (12-78)
[2016-09-07 08:17] LABS: ALK PHOS 68 U/L (45-117); BILIRUBIN,TOTAL 0.4 mg/dL (0.2-1.0)
[2016-09-07] MEDS: HEPARIN NA (PORCINE) 5,000 UNITS/ML 1ML VIAL SQ SCH ×2 (09:43→21:25)
[2016-09-07] MEDS: POLYETHYLENE GLYCOL 3350 119 GM BTL PO SCH (09:44)
[2016-09-07] MEDS: NICOTINE 14 MG/24 HOURS TOPICAL PATCH TD SCH (09:45)
[2016-09-07] MEDS: ATENOLOL 50 MG TABLET (FP) PO SCH (09:45)
[2016-09-07] MEDS: ALPRAZolam 2 MG TABLET PO PRN ×2 (09:45→21:25)
[2016-09-07] MEDS: NIFEdipine E.R. 30 MG TABLET (FP) PO SCH (09:45)
--- NOTE | 2016-09-07 10:27 | CON.NEURO ---
Consult - History of Present Illness History of Present Illness: 6 year old female histry of Bipolar disorer, anxiety , HTN , Hyperlipidemia. Patient came with confusion and anxiety as she was trying to cut down xanax . She takes xanax every four hour Patient had one witnessed seizures in ed and her blood pressure went upto 258 and she had two ct head and they were unremarkable and there was no bleed. There is no focal symptoms, including dysphagia dysarthria or weakness at this time. Patient still disoriented to time. Seizure was described as generalized tonic clonic and very brief and her bp was very high at that time. - Past Medical History Cardio/Vascular: Yes: Hyperlipdemia Infectious Disease: Yes: MRSA (right elbow) Psych: Yes: Anxiety, Bipolar - Alcohol/Substance Use Hx Alcohol Use: No - Smoking History Smoking history: Current every day smoker Have you smoked in the past 12 months: Yes Aproximately how many cigarettes per day: 40 - Social History Usual Living Arrangement: Alone ADL: Support Services History of Recent Travel: No Home Medications - Allergies Allergies/Adverse Reactions: Allergies Allergy/AdvReac Type Severity Reaction Status Date / Time amoxicillin trihydrate Allergy Intermediate Difficulty Verified 09/06/16 13:45 [From Augmentin] Breathing potassium clavulanate Allergy Intermediate Difficulty Verified 09/06/16 13:45 [From Augmentin] Breathing clindamycin Allergy Verified 09/06/16 13:45 Sulfa (Sulfonamide Allergy Verified 09/06/16 13:45 Antibiotics) - Home Medications Home Medications: Ambulatory Orders Atorvastatin Ca [Lipitor] 10 mg PO HS 08/14/15 Polyethylene Glycol 3350 [Miralax 119 gm Btl -] 17 gm PO DAILY bottle 09/07/15 Acetaminophen [Tylenol .Regular Strength -] 650 mg PO Q4H PRN #0 tablet Mirtazapine [Remeron -] 45 mg PO HS #30 tablet 03/09/16 Nifedipine ER [Procardia XL -] 30 mg PO DAILY #14 tab.er.24 03/09/16 Ondansetron [Zofran -] 4 mg PO TID PRN #21 tablet 03/09/16 Quetiapine Fumarate [Seroquel -] 400 mg PO HS #30 tablet 03/09/16 Alprazolam [Xanax] 2 mg PO Q12H PRN #0 tablet MDD 2 03/28/16 Atenolol [Tenormin -] 50 mg PO DAILY #30 tablet 03/28/16 Physical Exam-Neuro Vital Signs: Vital Signs Temperature 98.6 F 09/07/16 07:01 Pulse Rate 86 09/07/16 07:01 Respiratory Rate 16 09/07/16 07:01 Blood Pressure 126/70 09/07/16 07:01 O2 Sat by Pulse Oximetry (%) 100 09/07/16 03:13 Labs: CBC, BMP 09/07/16 06:00 09/07/16 06:00 NIH Stroke Scale - Total Score NIH Stroke Scale Score: 0 Imaging - Results Cat Scan: Report Reviewed Assessment/Plan CC New Onset Seizure 66 year old female histry of Bipolar disorer, anxiety , HTN , Hyperlipidemia. Patient came with confusion and anxiety as she was trying to cut down xanax . She takes xanax every four hour Patient had one witnessed seizures in ed and her blood pressure went upto 258 and she had two ct head and they were unremarkable and there was no bleed. There is no focal symptoms, including dysphagia dysarthria or weakness at this time. Patient still disoriented to time. Seizure was described as generalized tonic clonic and very brief and her bp was very high at that time. Past Medical History as above Medication reviewed in chart , she takes seraquel and xanax at home Neurological Examination Alert , sitting in chair no acute discomofort and able to follow command she could not tell what date it is beside that she is oriented x eomi and no face asymmetry, pupils are reactive moving all extremity , 5/5 all four ext sensation is normal grossly CT head reviwed and it is unremarkable Assessment-- New Onset seizure , most likley xanax withdrawal , unlikley to be stroke, meningitis Plan-- suggest to do mri of brain and eeg ( both test can be done outpatient if patient need to be discharged) no need for AED at this time follow up outpatient Thanking you so much Silvestre Brown MD
--- NOTE | 2016-09-07 21:15 | HP ---
Admitting History and Physical - Admission History of Present Illness: Pt is a 66 y/o female w/ PMH significant for HT, HLD and bipolar dz. There is a question if pt has been complaint w/ her medications. Pt brought to the ER by her son for altered mental status. On arrival to the ED, patient found to be alert, moving all extremities, but confused and unable to give history. Similar reactions in the past with UTI and hyponatremia. Patient had a witnessed tonic clonic seizure in the ER and was given ativan [address] Pt had [address] scan head x 2 wc did not show any acute pathology. - Past Medical History Cardiovascular: Yes: HTN, Hyperlipdemia Infectious Disease: Yes: MRSA (right elbow) Psych: Yes: Anxiety, Bipolar - Smoking History Smoking history: Current every day smoker Have you smoked in the past 12 months: Yes Aproximately how many cigarettes per day: 40 - Alcohol/Substance Use Hx Alcohol Use: No - Social History ADL: Support Services History of Recent Travel: No Home Medications - Allergies Allergies/Adverse Reactions: Allergies Allergy/AdvReac Type Severity Reaction Status Date / Time amoxicillin trihydrate Allergy Intermediate Difficulty Verified 09/06/16 13:45 [From Augmentin] Breathing potassium clavulanate Allergy Intermediate Difficulty Verified 09/06/16 13:45 [From Augmentin] Breathing clindamycin Allergy Verified 09/06/16 13:45 Sulfa (Sulfonamide Allergy Verified 09/06/16 13:45 Antibiotics) - Home Medications Home Medications: Ambulatory Orders Atorvastatin Ca [Lipitor] 10 mg PO HS 08/14/15 Polyethylene Glycol 3350 [Miralax 119 gm Btl -] 17 gm PO DAILY bottle 09/07/15 Acetaminophen [Tylenol .Regular Strength -] 650 mg PO Q4H PRN #0 tablet Mirtazapine [Remeron -] 45 mg PO HS #30 tablet 03/09/16 Nifedipine ER [Procardia XL -] 30 mg PO DAILY #14 tab.er.24 03/09/16 Ondansetron [Zofran -] 4 mg PO TID PRN #21 tablet 03/09/16 Quetiapine Fumarate [Seroquel -] 400 mg PO HS #30 tablet 03/09/16 Alprazolam [Xanax] 2 mg PO Q12H PRN #0 tablet MDD 2 03/28/16 Atenolol [Tenormin -] 50 mg PO DAILY #30 tablet 03/28/16 Family Disease History - Family Disease History Family History: Unremarkable Review of Systems Unable to obtain ROS, reason: altered mental state Physical Examination Vital Signs: Vital Signs Temperature 97.9 F 09/07/16 18:00 Pulse Rate 72 09/07/16 18:00 Respiratory Rate 18 09/07/16 18:00 Blood Pressure 157/84 09/07/16 18:00 O2 Sat by Pulse Oximetry (%) 100 09/07/16 10:00 Constitutional: Yes: Well Nourished Eyes: Yes: WNL HENT: Yes: WNL Neck: Yes: WNL, Supple Cardiovascular: Yes: WNL, Regular Rate and Rhythm Respiratory: Yes: WNL, Regular, CTA Bilaterally Gastrointestinal: Yes: WNL, Normal Bowel Sounds, Soft Extremities: Yes: WNL Edema: No Neurological: Yes: Other (Awake and orientated to person and place but not time) ...Motor Strength: WNL Labs: CBC, BMP 09/07/16 06:00 09/07/16 06:00 Problem List - Problems (1) Altered mental status Assessment/Plan: New onset seizure ?Benzo w/drawal Neuro consult Check MRI/EEG Code(s): R41.82 - ALTERED MENTAL STATUS, UNSPECIFIED Qualifiers: Altered mental status type: unspecified Qualified Code(s): R41.82 - Altered mental status, unspecified (2) Hypertension Assessment/Plan: BP stable Cont procardia/atenolol Code(s): I10 - ESSENTIAL (PRIMARY) HYPERTENSION (3) Bipolar disorder Assessment/Plan: Cont xanax/seroquel/remeron Psych consult Code(s): F31.9 - BIPOLAR DISORDER, UNSPECIFIED (4) Smoking history Assessment/Plan: Nicotine Patch Code(s): Z87.891 - PERSONAL HISTORY OF NICOTINE DEPENDENCE
[2016-09-07] MEDS ORDERED: PT OWN MED DRAWER 7, Y5N ONE (21:21)
[2016-09-07] MEDS: ATORVASTATIN CA 10 MG TABLET (FP) PO SCH (21:24)
[2016-09-07] MEDS: MIRTAZAPINE 15 MG TABLET (FP) PO SCH (21:24)
[2016-09-07] MEDS ORDERED: QUEtiapine FUMARATE 400 MG TABLET PO SCH (22:00)
[2016-09-08] MEDS ORDERED: PT OWN MED DRAWER 7, Y5N ONE ×2 (09:04→20:54)
[2016-09-08] MEDS: ATENOLOL 50 MG TABLET (FP) PO SCH (10:16)
[2016-09-08] MEDS: NICOTINE 14 MG/24 HOURS TOPICAL PATCH TD SCH (10:17)
[2016-09-08] MEDS: ALPRAZolam 2 MG TABLET PO PRN ×2 (10:17→21:46)
[2016-09-08] MEDS: NIFEdipine E.R. 30 MG TABLET (FP) PO SCH (10:17)
[2016-09-08] MEDS: HEPARIN NA (PORCINE) 5,000 UNITS/ML 1ML VIAL SQ SCH ×2 (10:18→21:47)
[2016-09-08] MEDS: POLYETHYLENE GLYCOL 3350 119 GM BTL PO SCH (10:18)
--- NOTE | 2016-09-08 12:27 | CON.PSY ---
Psychiatry Consult Chief Complaint: I am doing ok, I had a seizure. Symptoms: reports: Depressed Mood, Anxiety - Previous Psychiatric Treatment Outpatient: Less than 6 mos ago Inpatient: One prior admission - Previous Substance Abuse Treatment Outpatient: None Inpatient: None - Reason for Previous Treatment Reason for Previous Treatment: Major Depression - Current Medications Current Medications: Active Medications Alprazolam (Xanax -) 2 mg PO Q12H PRN PRN Reason: ANXIETY Last Admin: 09/08/16 10:17 Dose: 2 mg Atenolol (Tenormin -) 50 mg PO DAILY [facility] Last Admin: 09/08/16 10:16 Dose: 50 mg Atorvastatin Calcium (Lipitor -) 10 mg PO HS [facility] Last Admin: 09/07/16 21:24 Dose: 10 mg Heparin Sodium (Porcine) (Heparin -) 5,000 unit SQ BID [facility] Last Admin: 09/08/16 10:18 Dose: 5,000 unit Mirtazapine (Remeron -) 45 mg PO HS [facility] Last Admin: 09/07/16 21:24 Dose: 45 mg Nicotine (Nicoderm Patch -) 14 mg TD DAILY [facility] Last Admin: 09/08/16 10:17 Dose: 14 mg Nifedipine (Procardia Xl -) 30 mg PO DAILY [facility] Last Admin: 09/08/16 10:17 Dose: 30 mg Ondansetron HCl (Zofran -) 4 mg PO Q8H PRN PRN Reason: NAUSEA Polyethylene Glycol (Miralax (For Daily Use) -) 17 gm PO DAILY [facility] Last Admin: 09/08/16 10:18 Dose: 17 gm Quetiapine Fumarate (Seroquel -) [address] [facility] - Allergies Allergies: Allergies Allergy/AdvReac Type Severity Reaction Status Date / Time amoxicillin trihydrate Allergy Intermediate Difficulty Verified 09/06/16 13:45 [From Augmentin] Breathing potassium clavulanate Allergy Intermediate Difficulty Verified 09/06/16 13:45 [From Augmentin] Breathing clindamycin Allergy Verified 09/06/16 13:45 Sulfa (Sulfonamide Allergy Verified 09/06/16 13:45 Antibiotics) - Current Living Status Usual Living Arrangement: Alone - Current Mental Status Evaluation Appearance: Well Groomed Attitude: Cooperative - Affect Affect: Constrictive Appropriateness: Appropriate to Content - Mood Mood: Euthymic - Speech/Language Expressive: Coherent - Psychomotor Activity Psychomotor Activity: Slowed - Thought Process Thought Process: Intact - Thought Content Hallucinations: Absent Delusions: Absent - Self Perception Self Perception: No Impairment - Cognition Attention: Alert Memory, Immediate Recall: Intact Memory, Short Term: 2/3 Memory, Remote with Promptin/3 - Concentration Serial Sevens Intact: No Simple Calculations Intact: No - Abstraction Proverb Interpretation: Intact Judgement: Intact - Insight Insight: Intact - Impulse Control Impulse Control: Good Control - Suicidal Ideation Suicidal Ideation: No - Homicidal Ideation Homicidal Ideation: No Assessment/Plan 10 Continue with [facility] psych meds. 2) will see her pvt psych after discharge.
[2016-09-08] MEDS ORDERED: PANTOPRAZOLE 40 MG TABLET (FP) PO ONE (14:45)
[2016-09-08] MEDS: ACETAMINOPHEN 325 MG TABLET (FP) PO PRN (14:51)
--- NOTE | 2016-09-08 16:14 | PN ---
Progress Note, Physician History of Present Illness: No new change - Current Medication List Current Medications: Active Medications Acetaminophen (Tylenol -) 650 mg PO Q6H PRN PRN Reason: BACK PAIN Last Admin: 09/08/16 14:51 Dose: 650 mg Alprazolam (Xanax -) 2 mg PO Q12H PRN PRN Reason: ANXIETY Last Admin: 09/08/16 10:17 Dose: 2 mg Atenolol (Tenormin -) 50 mg PO DAILY [facility] Last Admin: 09/08/16 10:16 Dose: 50 mg Atorvastatin Calcium (Lipitor -) 10 mg PO HS [facility] Last Admin: 09/07/16 21:24 Dose: 10 mg Heparin Sodium (Porcine) (Heparin -) 5,000 unit SQ BID [facility] Last Admin: 09/08/16 10:18 Dose: 5,000 unit Mirtazapine (Remeron -) 45 mg PO HS [facility] Last Admin: 09/07/16 21:24 Dose: 45 mg Nicotine (Nicoderm Patch -) 14 mg TD DAILY [facility] Last Admin: 09/08/16 10:17 Dose: 14 mg Nifedipine (Procardia Xl -) 30 mg PO DAILY [facility] Last Admin: 09/08/16 10:17 Dose: 30 mg Ondansetron HCl (Zofran -) 4 mg PO Q8H PRN PRN Reason: NAUSEA Polyethylene Glycol (Miralax (For Daily Use) -) 17 gm PO DAILY [facility] Last Admin: 09/08/16 10:18 Dose: 17 gm Quetiapine Fumarate (Seroquel -) 400 mg PO [facility] - Objective Vital Signs: Vital Signs Temperature 98.3 F 09/08/16 15:06 Pulse Rate 63 09/08/16 15:06 Respiratory Rate 18 09/08/16 15:06 Blood Pressure 121/65 09/08/16 15:06 O2 Sat by Pulse Oximetry (%) 98 09/08/16 10:00 Constitutional: Yes: Well Nourished HENT: Yes: WNL Neck: Yes: WNL, Supple Cardiovascular: Yes: WNL, Regular Rate and Rhythm Respiratory: Yes: WNL, Regular, CTA Bilaterally Gastrointestinal: Yes: WNL, Normal Bowel Sounds, Soft Labs: CBC, BMP 09/07/16 06:00 09/07/16 06:00 Problem List - Problems (1) Altered mental status Assessment/Plan: New onset seizure ?Benzo w/drawal MRI head unremarkable Await EEG Code(s): R41.82 - ALTERED MENTAL STATUS, UNSPECIFIED Qualifiers: Altered mental status type: unspecified Qualified Code(s): R41.82 - Altered mental status, unspecified (2) Acute renal failure Assessment/Plan: Renal consult Check renal US Check labs in am Code(s): N17.9 - ACUTE KIDNEY FAILURE, UNSPECIFIED (3) Hyponatremia Assessment/Plan: Repeat labs in am Code(s): E87.1 - HYPO-OSMOLALITY AND HYPONATREMIA (4) Hypertension Assessment/Plan: BP has been stable however there was one spike to SBP of 180 Cont procardia/atenolol Cardio consuolt Check echo Code(s): I10 - ESSENTIAL (PRIMARY) HYPERTENSION (5) Hypercholesteremia Assessment/Plan: Cont lipitor Code(s): E78.0 - PURE HYPERCHOLESTEROLEMIA * DO NOT USE * (6) Bipolar disorder Assessment/Plan: Cont xanax/seroquel/remeron Code(s): F31.9 - BIPOLAR DISORDER, UNSPECIFIED (7) Smoking history Code(s): Z87.891 - PERSONAL HISTORY OF NICOTINE DEPENDENCE
[2016-09-08] MEDS: ATORVASTATIN CA 10 MG TABLET (FP) PO SCH (21:45)
[2016-09-08] MEDS: MIRTAZAPINE 15 MG TABLET (FP) PO SCH (21:46)
[2016-09-08] MEDS: QUEtiapine FUMARATE 200 MG TABLET PO SCH (21:47)
[2016-09-09 07:19] LABS: BASOPHIL 0.6 % (0-2.0); EOSINOPHIL 0.7 % (0-4.5); MCH 28.2 pg (25.7-33.7); MCHC 33.5 g/dl (32.0-36.0); MEAN PLT VOLUME 8.6 fl (7.5-11.1); NEUTROPHILS 40.7 % (42.8-82.8); PLATELET COUNT 213 K/MM3 (134-434); RDW 14.4 % (11.6-15.6); WHITE BLOOD COUNT 5.9 K/mm3 (4.0-10.0)
[2016-09-09 08:20] LABS: ALBUMIN 3.7 g/dl (3.4-5.0); ALK PHOS 70 U/L (45-117); ANION GAP 7 (8-16); BILIRUBIN,TOTAL 0.3 mg/dL (0.2-1.0); CALCIUM 9.1 mg/dL (8.5-10.1); CO2 28 mmol/L (21-32); CREATININE 1.3 mg/dL (0.55-1.02); GLUCOSE,RANDOM 78 mg/dL (74-106); SGOT/AST 15 U/L (15-37); SGPT/ALT 21 U/L (12-78); TOT PROT 7.5 g/dl (6.4-8.2)
--- NOTE | 2016-09-09 09:25 | CON.CARD ---
Consult Consult Specialty:: Cardiology Referred by:: Dr. Méndez Reason for Consultation:: HTN, bradycardia - History of Present Illness Chief Complaint: AMS, seizure History of Present Illness: 66 year old woman with a history of HTN, HLD, bipolar disorder, anxiety admitted with AMS then with a reported seizure in the ER. Pt seen and examined today. Pt is awake and alert, anxious. Pt states she wants to go home right away. denies any chest pain, sob, palpitations. No lightheadedness, dizziness. No pnd, orthopnea, or LE edema. 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 Cardio/Vascular: Yes: HTN, Hyperlipdemia Infectious Disease: Yes: MRSA (right elbow) Psych: Yes: Anxiety, Bipolar - Alcohol/Substance Use Hx Alcohol Use: No - Smoking History Smoking history: Current every day smoker Have you smoked in the past 12 months: Yes Aproximately how many cigarettes per day: 40 - Social History Usual Living Arrangement: Alone ADL: Support Services History of Recent Travel: No Home Medications - Allergies Allergies/Adverse Reactions: Allergies Allergy/AdvReac Type Severity Reaction Status Date / Time amoxicillin trihydrate Allergy Intermediate Difficulty Verified 09/06/16 13:45 [From Augmentin] Breathing potassium clavulanate Allergy Intermediate Difficulty Verified 09/06/16 13:45 [From Augmentin] Breathing clindamycin Allergy Verified 09/06/16 13:45 Sulfa (Sulfonamide Allergy Verified 09/06/16 13:45 Antibiotics) - Home Medications Home Medications: Ambulatory Orders Atorvastatin Ca [Lipitor] 10 mg PO HS 08/14/15 Polyethylene Glycol 3350 [Miralax 119 gm Btl -] 17 gm PO DAILY bottle 09/07/15 Acetaminophen [Tylenol .Regular Strength -] 650 mg PO Q4H PRN #0 tablet Mirtazapine [Remeron -] 45 mg PO HS #30 tablet 03/09/16 Nifedipine ER [Procardia XL -] 30 mg PO DAILY #14 tab.er.24 03/09/16 Ondansetron [Zofran -] 4 mg PO TID PRN #21 tablet 03/09/16 Quetiapine Fumarate [Seroquel -] 400 mg PO HS #30 tablet 03/09/16 Alprazolam [Xanax] 2 mg PO Q12H PRN #0 tablet MDD 2 03/28/16 Atenolol [Tenormin -] 50 mg PO DAILY #30 tablet 03/28/16 Family Disease History - Family Disease History Family History: Denies Review of Systems - Review of Systems Constitutional: denies: No Symptoms, Chills, Diaphoresis, Fever, Lethargy, Loss of Appetite, Malaise, Night Sweats, Unintentional Wgt. Loss, Weakness, Other Eyes: denies: No Symptoms, Blind Spots, Blurred Vision, Double Vision, Eye Pain , Floaters, Photophobia, Recent Change in Vision, Other HENT: denies: No Symptoms, Difficult Swallowing, Ear Discharge, Ear Pain, Epistaxis, Gingival Bleeding, Hearing Loss, Mouth Swelling, Nasal Congestion, Ocular Prosthesis, Throat Pain, Toothache, Ringing in Ears, Other Neck: denies: No Symptoms, Decreased ROM, Lumps, Pain on Movement, Stiffness, Swollen Glands, Tenderness, Other Cardiovascular: denies: No Symptoms, Chest Pain, Edema, Palpitations, Shortness of Breath, Other Respiratory: denies: No Symptoms, Cough, Exercise Intolerance, Hemoptysis, Orthopnea, PND, Snoring, SOB, SOB on Exertion, Wheezing, Other Gastrointestinal: denies: No Symptoms, Abdominal Pain, Bloating, Constipation, Diarrhea, Dysphagia, Indigestion, Melena, Nausea, Rectal Bleeding, Vomiting, Vomiting Blood, Other Genitourinary: denies: No Symptoms, Burning, Discharge, Dysuria, Flank Pain, Frequency, Hematuria, Incontinence, Lesions, Menses, Pain, Testicular Mass, Testicular Pain, Testicular Swelling, Urgency, Vaginal Bleeding, Other Breasts: denies: No Symptoms Reported, See HPI, Breast Implants, Discharge from Nipple, Lumps, Pain, Skin Changes, Other Musculoskeletal: denies: No Symptoms, Back Pain, Crepitus, Decreased ROM, Extremity Pain, Joint Pain, Joint Swelling, Muscle Pain, Muscle Cramps, Muscle Weakness, Other Integumentary: denies: No Symptoms, Blister, Bruising, Change in Color, Eczema, Erythema, Incision, Lesions, Lump, Pallor, Pruritis, Rash, Wound, Other Neurological: reports: Change in LOC, Seizure. denies: No Symptoms, Change in Speech, Confusion, Dizziness, Headache, Incoordination, Numbness, Parasthesia, Pre-Existing Deficit, Syncope, Tremors, Unsteady Gait, Weakness, Other Endocrine: denies: No Symptoms, Excessive Sweating, Flushing, Increased Hunger, Increased Thirst, Intolerance to Cold, Intolerance to Heat, Unexplained Weight Gain, Unexplained Weight Loss, Other Hematology/Lymphatic: denies: No Symptoms, Easily Bruised, Excessive Bleeding, Swollen Glands, Other Psychiatric: denies: No Symptoms, Altered Sleep Pattern, Anxiety, Depression, Hallucinations, Panic, Paranoia, Suicidal, Other - Risk Factors Known Risk Factors: Yes: Hypercholesterolemia, Hypertension Vital Signs: Vital Signs Temperature 98 F 09/09/16 06:00 Pulse Rate 60 09/09/16 06:00 Respiratory Rate 18 09/09/16 06:00 Blood Pressure 153/87 09/09/16 06:00 O2 Sat by Pulse Oximetry (%) 98 09/08/16 21:00 Constitutional: Yes: Well Nourished, No Distress, Anxious Eyes: Yes: WNL, Conjunctiva Clear, EOM Intact, PERRL HENT: Yes: WNL, Atraumatic, Normocephalic Neck: Yes: WNL, Supple, Trachea Midline Respiratory: Yes: WNL, Regular, CTA Bilaterally. No: Rales, Rhonchi, Wheezes Gastrointestinal: Yes: WNL, Normal Bowel Sounds, Soft. No: Distention, Tenderness Renal/: Yes: WNL Cardiovascular: Yes: Regular Rate and Rhythm. No: Bradycardia, Tachycardia, Pulse Irregular, Gallop, Rub, Varicosities, Other JVD: No Carotid Bruit: No PMI: Non-Displaced Heart Sounds: Yes: S1, S2. No: Split S2, S3, S4, Clicks, Gallop, Rub, Bruit Murmur: No: Systolic Murmur, Diastolic Murmur Musculoskeletal: Yes: WNL Extremities: Yes: WNL Edema: No Peripheral Pulses WNL: Yes Peripheral Pulses: 2+ Left Doralis Pedis, 2+ Right Dorsalis Pedis Integumentary: Yes: WNL Neurological: Yes: Alert Psychiatric: Yes: Alert - Other Data Labs, Other Data: CBC, BMP 09/09/16 05:40 09/09/16 05:40 ekg-sinus tach 106bpm, septal infarct, poor R progression, LAE, NSST Echo: Report Reviewed Imaging - Results Chest X-ray: Report Reviewed, Image Reviewed EKG: Report Reviewed, Image Reviewed Other: Report Reviewed, Image Reviewed (tele-no events recorded) Assessment/Plan 66 year old woman with a history of HTN, HLD, bipolar disorder, anxiety admitted with AMS then with a reported seizure in the ER. Pt seen and examined today. Pt is awake and alert, anxious. HTN-presumed exacerbated by seizure episode -adequately controlled yesterday afternoon and this am -cont home medical regimen and re-evaluate BP after this am meds -if BP elevated mainly at night can increase nifedipine to bid dosing Bradycardia-lowest recorded HR is 53 in EMR, otherwise NSR, sinus tach -bradycardia could have been a result of seizure episode or benzos that were administered -no events recorded on telemetry -sinus tach on ekg -cont current medical regimen including atenolol for HTN -outpatient f/up, would recc a holter monitor for further evaluation HLD -cont lipitor and f/up pmd Seizure -as per Neuro
[2016-09-09] MEDS: NIFEdipine E.R. 30 MG TABLET (FP) PO SCH (11:10)
[2016-09-09] MEDS: POLYETHYLENE GLYCOL 3350 119 GM BTL PO SCH (11:10)
[2016-09-09] MEDS: HEPARIN NA (PORCINE) 5,000 UNITS/ML 1ML VIAL SQ SCH ×2 (11:10→21:07)
[2016-09-09] MEDS: ATENOLOL 50 MG TABLET (FP) PO SCH (11:11)
[2016-09-09] MEDS: NICOTINE 14 MG/24 HOURS TOPICAL PATCH TD SCH (11:21)
[2016-09-09] MEDS: ALPRAZolam 2 MG TABLET PO PRN (11:22)
--- NOTE | 2016-09-09 13:57 | EKG ---
Test Reason : Blood Pressure : / mmHG Vent. Rate : 083 BPM Atrial Rate : 083 BPM P-R Int : 158 ms QRS Dur : 076 ms QT Int : 404 ms P-R-T Axes : 066 017 066 degrees QTc Int : 474 ms NORMAL SINUS RHYTHM POSSIBLE LEFT ATRIAL ENLARGEMENT ANTEROSEPTAL INFARCT (CITED ON OR BEFORE 08-MAR-2016) ABNORMAL ECG WHEN COMPARED WITH ECG OF 06-SEP-2016 13:50, NO SIGNIFICANT CHANGE WAS FOUND Confirmed by DORIS FRAZIER MD ([id number]) on 09/09/2016 1:57:15 PM Referred By: Confirmed By:DORIS FRAZIER MD
--- NOTE | 2016-09-09 13:59 | CONSULT ---
Consult Consult Specialty:: Nephrology ( Eugenio/ Osvaldo) Referred by:: Dr. Espino Reason for Consultation:: Abnormal Renal functions - History of Present Illness History of Present Illness: Mrs. Beckham is a 66 y/o female, admitted with acute altered mentation. The patient has h/o Anxiety, Bipolar disordere, Hypertension, Hyperlipdemia. The patient probably skipped her Xanax doses before admission. Had an episode of acute seizure while in the ER. Attributed to Xanax withdrawal. The patient reportedly going through very stressful situations in life. The patient denies chest pain, but gets periods of shortness of breath. 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 Cardio/Vascular: Yes: HTN, Hyperlipdemia Infectious Disease: Yes: MRSA (right elbow) Psych: Yes: Anxiety, Bipolar - Alcohol/Substance Use Hx Alcohol Use: No - Smoking History Smoking history: Current every day smoker Have you smoked in the past 12 months: Yes Aproximately how many cigarettes per day: 40 - Social History Usual Living Arrangement: Alone ADL: Support Services History of Recent Travel: No Home Medications - Allergies Allergies/Adverse Reactions: Allergies Allergy/AdvReac Type Severity Reaction Status Date / Time amoxicillin trihydrate Allergy Intermediate Difficulty Verified 09/06/16 13:45 [From Augmentin] Breathing potassium clavulanate Allergy Intermediate Difficulty Verified 09/06/16 13:45 [From Augmentin] Breathing clindamycin Allergy Verified 09/06/16 13:45 Sulfa (Sulfonamide Allergy Verified 09/06/16 13:45 Antibiotics) - Home Medications Home Medications: Ambulatory Orders Atorvastatin Ca [Lipitor] 10 mg PO HS 08/14/15 Polyethylene Glycol 3350 [Miralax 119 gm Btl -] 17 gm PO DAILY bottle 09/07/15 Acetaminophen [Tylenol .Regular Strength -] 650 mg PO Q4H PRN #0 tablet Mirtazapine [Remeron -] 45 mg PO HS #30 tablet 03/09/16 Nifedipine ER [Procardia XL -] 30 mg PO DAILY #14 tab.er.24 03/09/16 Ondansetron [Zofran -] 4 mg PO TID PRN #21 tablet 03/09/16 Quetiapine Fumarate [Seroquel -] 400 mg PO HS #30 tablet 03/09/16 Alprazolam [Xanax] 2 mg PO Q12H PRN #0 tablet MDD 2 03/28/16 Atenolol [Tenormin -] 50 mg PO DAILY #30 tablet 03/28/16 Review of Systems - Review of Systems Constitutional: reports: Loss of Appetite Cardiovascular: reports: Shortness of Breath. denies: Chest Pain Gastrointestinal: denies: Abdominal Pain, Bloating, Constipation Genitourinary: denies: Burning, Dysuria, Flank Pain, Incontinence Neurological: reports: Change in LOC Hematology/Lymphatic: reports: No Symptoms Physical Exam Vital Signs: Vital Signs Temperature 97.9 F 09/09/16 13:44 Pulse Rate 62 09/09/16 13:44 Respiratory Rate 20 09/09/16 13:44 Blood Pressure 160/88 09/09/16 13:44 O2 Sat by Pulse Oximetry (%) 100 09/09/16 09:00 Constitutional: Yes: Anxious Eyes: Yes: Conjunctiva Clear HENT: Yes: Atraumatic Neck: Yes: Trachea Midline Cardiovascular: Yes: Regular Rate and Rhythm, S1, S2 Respiratory: Yes: Regular, CTA Bilaterally. No: Rales, Rhonchi Gastrointestinal: Yes: Normal Bowel Sounds, Soft. No: Tenderness Renal/: No: CVA Tenderness - Left, CVA Tenderness - Right Musculoskeletal: Yes: Joint Stiffness. No: Back Pain Neurological: Yes: Alert, Oriented Labs: CBC, BMP 09/09/16 05:40 09/09/16 05:40 Problem List - Problems (1) Acute renal failure Code(s): N17.9 - ACUTE KIDNEY FAILURE, UNSPECIFIED (2) Altered mental status Code(s): R41.82 - ALTERED MENTAL STATUS, UNSPECIFIED Qualifiers: Altered mental status type: unspecified Qualified Code(s): R41.82 - Altered mental status, unspecified (3) New onset seizure Code(s): R56.9 - UNSPECIFIED CONVULSIONS (4) Anemia Code(s): D64.9 - ANEMIA, UNSPECIFIED (5) Benzodiazepine withdrawal Code(s): F13.239 - SEDATV/HYP/ANXIOLYTC DEPENDENCE W WITHDRAWAL, UNSP (6) Hypercholesteremia Code(s): E78.0 - PURE HYPERCHOLESTEROLEMIA * DO NOT USE * (7) Hypertension Code(s): I10 - ESSENTIAL (PRIMARY) HYPERTENSION (8) Hyponatremia Code(s): E87.1 - HYPO-OSMOLALITY AND HYPONATREMIA Assessment/Plan Acute Kidney Injury: Possibly related to unstable Hemodynamic factors. The Renal functions improving towards her baseline. Chronic Kidney Disease, Stage 3, due to Microvascular renal disease. ( Hypertension, Atherosclerosis) Hyponatremia, which is almost near normal now. The Acute Hyponatremia could be related to acute Non-osmotic ADH release related to the seizure. Hypertension. Suboptyimal control. Tends to have Bradycardia. Suggest. Maintain euvolemia. Will increase Procardia XL to 60 mg daily. Detailed w/u not warranted at this time. Will monitor the Renal functions with you. Thank you. Olivia Becker MD
--- NOTE | 2016-09-09 19:53 | PN ---
Progress Note, Physician History of Present Illness: no complaints - Current Medication List Current Medications: Active Medications Acetaminophen (Tylenol -) 650 mg PO Q6H PRN PRN Reason: BACK PAIN Last Admin: 09/08/16 14:51 Dose: 650 mg Alprazolam (Xanax -) 2 mg PO Q12H PRN PRN Reason: ANXIETY Last Admin: 09/09/16 11:22 Dose: 2 mg Atenolol (Tenormin -) 50 mg PO DAILY [facility] Last Admin: 09/09/16 11:11 Dose: 50 mg Atorvastatin Calcium (Lipitor -) 10 mg PO HS [facility] Last Admin: 09/08/16 21:45 Dose: 10 mg Heparin Sodium (Porcine) (Heparin -) 5,000 unit SQ BID [facility] Last Admin: 09/09/16 11:10 Dose: 5,000 unit Mirtazapine (Remeron -) 45 mg PO HS [facility] Last Admin: 09/08/16 21:46 Dose: 45 mg Nicotine (Nicoderm Patch -) 14 mg TD DAILY [facility] Last Admin: 09/09/16 11:21 Dose: 14 mg Nifedipine (Procardia Xl -) 60 mg PO DAILY [facility] Ondansetron HCl (Zofran -) 4 mg PO Q8H PRN PRN Reason: NAUSEA Last Admin: 09/08/16 21:45 Dose: 4 mg Polyethylene Glycol (Miralax (For Daily Use) -) 17 gm PO DAILY [facility] Last Admin: 09/09/16 11:10 Dose: 17 gm Quetiapine Fumarate (Seroquel -) 400 mg PO [facility] Last Admin: 09/08/16 21:47 Dose: 400 mg - Objective Vital Signs: Vital Signs Temperature 97.8 F 09/09/16 17:31 Pulse Rate 94 H 09/09/16 17:31 Respiratory Rate 18 09/09/16 17:31 Blood Pressure 162/93 09/09/16 17:31 O2 Sat by Pulse Oximetry (%) 100 09/09/16 09:00 Constitutional: Yes: No Distress HENT: Yes: Atraumatic Neck: Yes: Supple Cardiovascular: Yes: Regular Rate and Rhythm Respiratory: Yes: CTA Bilaterally Gastrointestinal: Yes: Normal Bowel Sounds Extremities: Yes: WNL Edema: No Labs: CBC, BMP 09/09/16 05:40 09/09/16 05:40 Problem List - Problems (1) Acute renal failure Assessment/Plan: nephro consult reviewed cr trending down fu labs Code(s): N17.9 - ACUTE KIDNEY FAILURE, UNSPECIFIED (2) Altered mental status Assessment/Plan: doing better Code(s): R41.82 - ALTERED MENTAL STATUS, UNSPECIFIED Qualifiers: Altered mental status type: unspecified Qualified Code(s): R41.82 - Altered mental status, unspecified (3) New onset seizure Assessment/Plan: awaiting neuro for further plans Code(s): R56.9 - UNSPECIFIED CONVULSIONS (4) Benzodiazepine withdrawal Code(s): F13.239 - SEDATV/HYP/ANXIOLYTC DEPENDENCE W WITHDRAWAL, UNSP Assessment/Plan covering dr bentley...DAY 1
[2016-09-09] MEDS ORDERED: PT OWN MED DRAWER 7, Y5N ONE (21:04)
[2016-09-09] MEDS: QUEtiapine FUMARATE 200 MG TABLET PO SCH (21:07)
[2016-09-09] MEDS: ATORVASTATIN CA 10 MG TABLET (FP) PO SCH (21:07)
[2016-09-09] MEDS: MIRTAZAPINE 15 MG TABLET (FP) PO SCH (21:07)
[2016-09-09] MEDS ORDERED: LORAZEPAM CARPU-JECT 2 MG/ML DISP.SYRIN ONE (23:09)
--- NOTE | 2016-09-09 23:34 | RAPID ---
Physical Examination Vital Signs: Vital Signs: BP 170/97 HR 82 SpO2 100% on NRB Labs: CBC, BMP 09/09/16 05:40 09/09/16 05:40 Rapid Response - Rapid Response Assessment: Per chart, 66yo woman with PMH of HTN, HLD, and bipolar disorder who presented 3 days ago (on 09/06) with AMS and admitted for new-onset witnessed tonic- clonic seizure while in the ED possibly 2/2 to benzodiazepine withdrawal. This evening Rapid Repsonse was called when 4S nurses witnessed the patient having a generalized tonic clonic seizure. They did not witness seizure onset, but on arrival, seizure was noted to last less than 30 seconds with patient's gaze fixed to the Left and having excessive salivation. Overnight medical team responded and pt was given 1x Ativan 2mg IV. She was post-ictal and not responding to verbal commands. Her vital signs were BP 170/87, HR 82, and satting at 100% on NRB. Blood glucose 122. Stat lactic acid, CMP, CBC, prolactin and EKG were ordered. The Neurologist, Dr. Mota, is currently following the patient. Head CT x2 was performed on 09/06, which revealed no acute pathology and Brain MRI was performed on 09/07 revealing mild periventricular/subcortical white matter small vessel ischemic changed. Dr. Espino, patient's PCP, was notified, and will follow labs.
[2016-09-09] MEDS ORDERED: LORAZEPAM CARPU-JECT 2 MG/ML DISP.SYRIN IVPUSH PRN (23:43)
[2016-09-10 00:03] LABS: MCH 27.7 pg (25.7-33.7); MCHC 32.6 g/dl (32.0-36.0); MEAN CELL VOLUME 85.1 fl (80-96); MEAN PLT VOLUME 8.6 fl (7.5-11.1); PLATELET COUNT 212 K/MM3 (134-434); RDW 14.7 % (11.6-15.6); WHITE BLOOD COUNT 5.5 K/mm3 (4.0-10.0)
[2016-09-10] MEDS ORDERED: ONDANSETRON 4 MG/2 ML VIAL ONE (00:19)
[2016-09-10 00:33] LABS: ALBUMIN 3.6 g/dl (3.4-5.0); ALK PHOS 65 U/L (45-117); ANION GAP 15 (8-16); BILIRUBIN,TOTAL 0.3 mg/dL (0.2-1.0); CALCIUM 9.1 mg/dL (8.5-10.1); CO2 20 mmol/L (21-32); CREATININE 1.4 mg/dL (0.55-1.02); GLUCOSE,RANDOM 149 mg/dL (74-106); SGOT/AST 17 U/L (15-37); SGPT/ALT 22 U/L (12-78); TOT PROT 7.3 g/dl (6.4-8.2)
[2016-09-10] MEDS ORDERED: ONDANSETRON 4 MG/2 ML VIAL IVPB PRN (00:44)
[2016-09-10] MEDS ORDERED: AZITHROMYCIN IVPB 500 MG/250 ML D5W PRE-DOCKED IVPB ONE (01:45)
--- NOTE | 2016-09-10 02:44 | CONSULT ---
Consult Consult Specialty:: Pulm/CCM Reason for Consultation:: Seizures in setting of benzo withdrawal - History of Present Illness Chief Complaint: Seizures History of Present Illness: 66yo woman with PMH of HTN, HLD, and bipolar disorder who presented on 09/06 with AMS after home dose Xanax change or missed doses. Had witnessed tonic- clonic seizure in ER. MRI brain showed chronic atrophy and CT scan x2 was negative for for mass effect or ischemic changes. EEG on 09/07. Being followed by neurology. No AED's recommended. Restarted on Xanax prn. Admitted to yesterday pm pt had another seizure that was noted by AMS, fixed side gaze and drooling at the mouth that resolved after~30seconds. A rapid response was called. Pt given Ativan IV. Lactate post seizure up to 7.2. She was transferred to ICU for monitoring. Rec'd pt somnolent but easily aroused and responding appropriately to questions. HD stable. 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 Cardio/Vascular: Yes: HTN, Hyperlipdemia Infectious Disease: Yes: MRSA (right elbow) Psych: Yes: Anxiety, Bipolar - Alcohol/Substance Use Hx Alcohol Use: No - Smoking History Smoking history: Current every day smoker Have you smoked in the past 12 months: Yes Aproximately how many cigarettes per day: 40 - Social History Usual Living Arrangement: Alone ADL: Support Services History of Recent Travel: No Home Medications - Allergies Allergies/Adverse Reactions: Allergies Allergy/AdvReac Type Severity Reaction Status Date / Time amoxicillin trihydrate Allergy Intermediate Difficulty Verified 09/06/16 13:45 [From Augmentin] Breathing potassium clavulanate Allergy Intermediate Difficulty Verified 09/06/16 13:45 [From Augmentin] Breathing clindamycin Allergy Verified 09/06/16 13:45 Sulfa (Sulfonamide Allergy Verified 09/06/16 13:45 Antibiotics) - Home Medications Home Medications: Ambulatory Orders Atorvastatin Ca [Lipitor] 10 mg PO HS 08/14/15 Polyethylene Glycol 3350 [Miralax 119 gm Btl -] 17 gm PO DAILY bottle 09/07/15 Acetaminophen [Tylenol .Regular Strength -] 650 mg PO Q4H PRN #0 tablet Mirtazapine [Remeron -] 45 mg PO HS #30 tablet 03/09/16 Nifedipine ER [Procardia XL -] 30 mg PO DAILY #14 tab.er.24 03/09/16 Ondansetron [Zofran -] 4 mg PO TID PRN #21 tablet 03/09/16 Quetiapine Fumarate [Seroquel -] 400 mg PO HS #30 tablet 03/09/16 Alprazolam [Xanax] 2 mg PO Q12H PRN #0 tablet MDD 2 03/28/16 Atenolol [Tenormin -] 50 mg PO DAILY #30 tablet 03/28/16 Family Disease History - Family Disease History Family History: Unremarkable Review of Systems - Review of Systems Constitutional: reports: No Symptoms Eyes: reports: No Symptoms Cardiovascular: reports: No Symptoms Respiratory: reports: No Symptoms Gastrointestinal: reports: No Symptoms Neurological: reports: Seizure, Other (sedation) Endocrine: reports: No Symptoms Hematology/Lymphatic: reports: No Symptoms Physical Exam Vital Signs: Vital Signs Temperature 97.8 F 09/09/16 17:31 Pulse Rate 94 H 09/09/16 17:31 Respiratory Rate 18 09/09/16 17:31 Blood Pressure 162/93 09/09/16 17:31 O2 Sat by Pulse Oximetry (%) 100 09/09/16 09:00 Constitutional: Yes: Well Nourished, No Distress Eyes: Yes: WNL HENT: Yes: Atraumatic, Normocephalic Neck: Yes: WNL, Trachea Midline Cardiovascular: Yes: Regular Rate and Rhythm Respiratory: Yes: Regular, CTA Bilaterally Gastrointestinal: Yes: Normal Bowel Sounds, Soft Renal/: Yes: WNL Extremities: Yes: WNL Edema: No Peripheral Pulses WNL: Yes ...Motor Strength: WNL Psychiatric: Yes: Other (somnolent, easily aroused) Labs: CBC, BMP 09/09/16 23:45 09/09/16 23:45 CBC,CMP WBC 5.5 K/mm3 (4.0-10.0) 09/09/16 23:45 RBC 4.15 M/mm3 (3.60-5.2) 09/09/16 23:45 Hgb 11.5 GM/dL (10.7-15.3) 09/09/16 23:45 Hct 35.3 % (32.4-45.2) 09/09/16 23:45 MCV 85.1 fl (80-96) 09/09/16 23:45 MCH 27.7 pg (25.7-33.7) 09/09/16 23:45 MCHC 32.6 g/dl (32.0-36.0) 09/09/16 23:45 RDW 14.7 % (11.6-15.6) 09/09/16 23:45 Plt Count 212 K/MM3 (134-434) 09/09/16 23:45 MPV 8.6 fl (7.5-11.1) 09/09/16 23:45 Neutrophils % 40.7 % (42.8-82.8) L D 09/09/16 05:40 Lymphocytes % 52.5 % (8-40) H D 09/09/16 05:40 Monocytes % 5.5 % (3.8-10.2) 09/09/16 05:40 Eosinophils % 0.7 % (0-4.5) D 09/09/16 05:40 Basophils % 0.6 % (0-2.0) 09/09/16 05:40 Sodium 137 mmol/L (136-145) 09/09/16 23:45 Potassium 3.9 mmol/L (3.5-5.1) 09/09/16 23:45 Chloride 102 mmol/L (98-107) 09/09/16 23:45 Carbon Dioxide 20 mmol/L (21-32) L D 09/09/16 23:45 Anion Gap 15 (8-16) 09/09/16 23:45 BUN 20 mg/dL (7-18) H 09/09/16 23:45 Creatinine 1.4 mg/dL (0.55-1.02) H 09/09/16 23:45 Creat Clearance w eGFR 37.62 (>60) 09/09/16 23:45 POC Glucometer 122 UNITS (()) 09/09/16 23:09 Random Glucose 149 mg/dL (74-106) H D 09/09/16 23:45 Lactic Acid 7.2 mmol/L (0.4-2.0) H* 09/09/16 23:45 Calcium 9.1 mg/dL (8.5-10.1) 09/09/16 23:45 Total Bilirubin 0.3 mg/dL (0.2-1.0) 09/09/16 23:45 AST 17 U/L (15-37) 09/09/16 23:45 ALT 22 U/L (12-78) 09/09/16 23:45 Alkaline Phosphatase 65 U/L (45-117) 09/09/16 23:45 Creatine Kinase 70 IU/L (26-192) 09/06/16 14:25 Troponin I < 0.02 ng/ml (0.00-0.05) 09/06/16 14:25 Total Protein 7.3 g/dl (6.4-8.2) 09/09/16 23:45 Albumin 3.6 g/dl (3.4-5.0) 09/09/16 23:45 TSH 1.94 uIU/ml (0.358-3.74) D 09/06/16 15:00 Problem List - Problems (1) Acute renal failure Code(s): N17.9 - ACUTE KIDNEY FAILURE, UNSPECIFIED (2) Altered mental status Code(s): R41.82 - ALTERED MENTAL STATUS, UNSPECIFIED Qualifiers: Altered mental status type: unspecified Qualified Code(s): R41.82 - Altered mental status, unspecified (3) MRSA (methicillin resistant staph aureus) culture positive Code(s): Z22.322 - CARRIER OR SUSPECTED CARRIER OF METHICILLIN RESIS STAPH Assessment/Plan 66yo woman with PMH of HTN, HLD, anxiety and bipolar disorder who presented on 09/06 with AMS and ? seizure activity after change in Xanax dosing 2/2 oversedation and admitted for new-onset witnessed tonic-clonic seizure. Had repeat witnessed seizure on floor possibly due to missed benzo dose. Transferred to ICU for post-ictal lactic acidosis. CCB SHANNON which is improving Plan: Neuro: Seizure activity m/l 2/2 benzo withdrawal -Neuro following -Seizure precautions -Ativan prn seizures -EEG in am -Continue low dose benzodiazepines to prevent withdrawal -Trend lactate, CK -Cont IVF -Monitor BMP and UOP.
[2016-09-10] MEDS: SODIUM CHLORIDE 1,000 ML IV SCH ×2 (03:00→16:00)
[2016-09-10 06:17] LABS: ALBUMIN 3.6 g/dl (3.4-5.0); ANION GAP 9 (8-16); CALCIUM 9.2 mg/dL (8.5-10.1); CO2 28 mmol/L (21-32); CREATININE 1.3 mg/dL (0.55-1.02); GLUCOSE,RANDOM 156 mg/dL (74-106); SGOT/AST 16 U/L (15-37); SGPT/ALT 22 U/L (12-78); URIC ACID 6.5 mg/dL (2.6-7.2)
[2016-09-10 06:19] LABS: ALK PHOS 67 U/L (45-117); BILIRUBIN,TOTAL 0.5 mg/dL (0.2-1.0); TOT PROT 7.5 g/dl (6.4-8.2)
--- NOTE | 2016-09-10 09:19 | PN ---
Progress Note, Physician Chief Complaint: Transferred to ICU after seizure Now awake, but confused. TELE: NSR. ECG: no acute ST changes. Elevated Lactic Acid, likely due to seizure. - Current Medication List Current Medications: Active Medications Acetaminophen (Tylenol -) 650 mg PO Q6H PRN PRN Reason: BACK PAIN Last Admin: 09/08/16 14:51 Dose: 650 mg Alprazolam (Xanax -) 2 mg PO Q12H PRN PRN Reason: ANXIETY Last Admin: 09/09/16 11:22 Dose: 2 mg Atenolol (Tenormin -) 50 mg PO DAILY [facility] Last Admin: 09/09/16 11:11 Dose: 50 mg Atorvastatin Calcium (Lipitor -) 10 mg PO HS [facility] Last Admin: 09/09/16 21:07 Dose: 10 mg Heparin Sodium (Porcine) (Heparin -) 5,000 unit SQ BID [facility] Last Admin: 09/09/16 21:07 Dose: 5,000 unit Sodium Chloride (Normal Saline -) 1,000 mls @ 75 mls/hr IV ASDIR [facility] Last Admin: 09/10/16 03:00 Dose: 75 mls/hr Lorazepam (Ativan Injection -) 1 mg IVPUSH Q4H PRN PRN Reason: WITHDRAWAL(CONT SUBST) Mirtazapine (Remeron -) 45 mg PO HS [facility] Last Admin: 09/09/16 21:07 Dose: 45 mg Nicotine (Nicoderm Patch -) 14 mg TD DAILY [facility] Last Admin: 09/09/16 11:21 Dose: 14 mg Nifedipine (Procardia Xl -) 60 mg PO DAILY [facility] Ondansetron HCl (Zofran Injection) 4 mg IVPB Q4H PRN PRN Reason: NAUSEA Last Admin: 09/10/16 00:19 Dose: 4 mg Polyethylene Glycol (Miralax (For Daily Use) -) 17 gm PO DAILY [facility] Last Admin: 09/09/16 11:10 Dose: 17 gm Quetiapine Fumarate (Seroquel -) 400 mg PO HS [facility] Last Admin: 09/09/16 21:07 Dose: 400 mg - Objective Vital Signs: Vital Signs Temperature 97.7 F 09/10/16 02:25 Pulse Rate 78 09/10/16 08:00 Respiratory Rate 18 09/10/16 08:00 Blood Pressure 176/84 09/10/16 08:00 O2 Sat by Pulse Oximetry (%) 99 09/10/16 08:18 Constitutional: Yes: No Distress, Calm Eyes: Yes: Conjunctiva Clear, EOM Intact HENT: Yes: Atraumatic Neck: Yes: Supple Cardiovascular: Yes: Regular Rate and Rhythm Respiratory: Yes: CTA Bilaterally Gastrointestinal: Yes: Soft (non-tender) Edema: No Neurological: Yes: Alert, Oriented Labs: CBC, BMP 09/09/16 23:45 09/10/16 05:10 Microbiology 09/07/16 02:30 Urine - Urine Garner Urine Culture - Final NO GROWTH OBTAINED 09/07/16 01:51 Urine - Urine Clean Catch Urine Culture - Final NO GROWTH OBTAINED Laboratory Tests 09/06/16 09/09/16 09/09/16 15:00 23:45 23:45 WBC 5.5 Hct 35.3 Plt Count 212 Sodium Potassium BUN Creatinine Random Glucose Lactic Acid 7.2 H* Uric Acid Calcium Total Bilirubin AST ALT Alkaline Phosphatase Total Protein Albumin Urine Color Straw Urine Appearance Clear Urine pH 8.0 D Ur Specific [place] 1.015 Urine Protein 2+ H Urine Glucose (UA) Negative Urine Ketones Negative Urine Blood 2+ H Urine Nitrite Negative Urine Bilirubin Negative Urine Urobilinogen Negative Ur Leukocyte Esterase Negative Urine RBC 2 Urine WBC <1 09/10/16 05:10 WBC Hct Plt Count Sodium 137 Potassium 4.5 BUN 20 H Creatinine 1.3 H Random Glucose 156 H Lactic Acid Uric Acid 6.5 D Calcium 9.2 Total Bilirubin 0.5 D AST 16 ALT 22 Alkaline Phosphatase 67 Total Protein 7.5 Albumin 3.6 Urine Color Urine Appearance Urine pH Ur Specific [place] Urine Protein Urine Glucose (UA) Urine Ketones Urine Blood Urine Nitrite Urine Bilirubin Urine Urobilinogen Ur Leukocyte Esterase Urine RBC Urine WBC - ....Imaging EKG: Image Reviewed Assessment/Plan Assessment/Plan 66 year old woman with a history of HTN, HLD, bipolar disorder, anxiety admitted with AMS then with a reported seizure in the ER and seizure on floor. HTN-presumed exacerbated by seizure episode -Continue current Procardia dose. -If remains consistently above 140-150/90, can titrate Procardia Seizure: -as per Neuro
[2016-09-10] MEDS: ATENOLOL 50 MG TABLET (FP) PO SCH (09:36)
[2016-09-10] MEDS: HEPARIN NA (PORCINE) 5,000 UNITS/ML 1ML VIAL SQ SCH ×2 (09:36→21:50)
[2016-09-10] MEDS: NICOTINE 14 MG/24 HOURS TOPICAL PATCH TD SCH (09:38)
[2016-09-10] MEDS ORDERED: PT OWN MED DRAWER 7, Y5N ONE ×2 (09:58→21:47)
[2016-09-10] MEDS: NIFEdipine E.R 60 MG TABLET (UD) PO SCH (09:58)
[2016-09-10] MEDS: ACETAMINOPHEN 325 MG TABLET (FP) PO PRN (09:58)
[2016-09-10] MEDS: POLYETHYLENE GLYCOL 3350 119 GM BTL PO SCH (10:00)
--- NOTE | 2016-09-10 11:27 | PN ---
Physical Exam: SUBJECTIVE: Patient seen and examined at bedside in ICU. Pt is currently unable to give history due to altered mental status. She is oriented to self only at this time. OBJECTIVE: Vital Signs Temperature 100.3 F H 09/10/16 10:00 Pulse Rate 73 09/10/16 10:00 Respiratory Rate 09/10/16 10:00 Blood Pressure 165/79 09/10/16 10:00 O2 Sat by Pulse Oximetry (%) 99 09/10/16 08:18 GENERAL: The patient is awake, alert, and oriented only to self. Not in acute distress. HEAD: Normal with no signs of trauma. EYES: conjunctiva clear. ENT: Ears normal, nares patent. NECK: Trachea midline LUNGS: Breath sounds equal, clear to auscultation bilaterally HEART: Regular rate and rhythm, S1, S2 ABDOMEN: Soft, nontender, nondistended, normoactive bowel sounds EXTREMITIES: warm, well-perfused, no edema. NEUROLOGICAL:AMS, slow to speak, gait not observed. SKIN: Warm, dry Laboratory Results - last 24 hr 09/09/16 09/09/16 09/09/16 23:09 23:45 23:45 WBC 5.5 RBC 4.15 Hgb 11.5 Hct 35.3 MCV 85.1 MCH 27.7 MCHC 32.6 RDW 14.7 Plt Count 212 MPV 8.6 Sodium 137 Potassium 3.9 Chloride 102 Carbon Dioxide 20 L D Anion Gap 15 BUN 20 H Creatinine 1.4 H Creat Clearance w eGFR 37.62 POC Glucometer 122 Random Glucose 149 H D Lactic Acid Uric Acid Calcium 9.1 Total Bilirubin 0.3 AST 17 ALT 22 Alkaline Phosphatase 65 Total Protein 7.3 Albumin 3.6 09/09/16 09/10/16 09/10/16 23:45 05:10 09:00 WBC RBC Hgb Hct MCV MCH MCHC RDW Plt Count MPV Sodium 137 Potassium 4.5 Chloride 100 Carbon Dioxide 28 D Anion Gap 9 BUN 20 H Creatinine 1.3 H Creat Clearance w eGFR 40.98 POC Glucometer Random Glucose 156 H Lactic Acid 7.2 H* 1.5 Uric Acid 6.5 D Calcium 9.2 Total Bilirubin 0.5 D AST 16 ALT 22 Alkaline Phosphatase 67 Total Protein 7.5 Albumin 3.6 Active Medications Generic Name Dose Route Start Last Admin Trade Name Freq PRN Reason Stop Dose Admin Acetaminophen 650 mg 09/08/16 14:38 09/10/16 09:58 Tylenol - PO 650 mg Q6H PRN Administration BACK PAIN Atenolol 50 mg 09/07/16 10:00 09/10/16 09:36 Tenormin - PO 50 mg DAILY [facility] Administration Atorvastatin Calcium 10 mg 09/07/16 22:00 09/09/16 21:07 Lipitor - PO 10 mg HS [facility] Administration Diazepam 5 mg 09/10/16 11:00 Valium - PO BID [facility] Heparin Sodium (Porcine) 5,000 unit 09/07/16 10:00 09/10/16 09:36 Heparin - SQ 5,000 unit BID [facility] Administration Sodium Chloride 1,000 mls @ 75 mls/hr 09/10/16 01:45 09/10/16 03:00 Normal Saline - IV 75 mls/hr ASDIR [facility] Administration Lorazepam 1 mg 09/09/16 23:43 Ativan Injection - IVPUSH Q4H PRN WITHDRAWAL(CONT SUBST) Mirtazapine 45 mg 09/07/16 22:00 09/09/16 21:07 Remeron - PO 45 mg HS [facility] Administration Nicotine 14 mg 09/07/16 10:00 09/10/16 09:38 Nicoderm Patch - TD 14 mg DAILY [facility] Administration Nifedipine 60 mg 09/10/16 10:00 09/10/16 09:58 Procardia Xl - PO 60 mg DAILY [facility] Administration Ondansetron HCl 4 mg 09/10/16 00:44 09/10/16 00:19 Zofran Injection IVPB 4 mg Q4H PRN Administration NAUSEA Polyethylene Glycol 17 gm 09/07/16 10:00 09/10/16 10:00 Miralax (For Daily Use) - PO Not Given DAILY [facility] Quetiapine Fumarate 400 mg 09/08/16 22:00 09/09/16 21:07 Seroquel - PO 400 mg HS [facility] Administration ASSESSMENT/PLAN: 66 y/o F w/ PMH of HTN, HLD, bipolar d/o, presented to ER for AMS after missing home xanax doses. Pt transferred to ICU due to seizure on floors. Neuro -AMS -secondary to benzo w/d, missed xanax doses -changed xanax to valium 5 mg po q12h as it is longer acting -c/w ativan 1 mg iv q4h prn for withdrawal symptoms -New onset seizures, likely secondary to benzo w/d -c/w ativan 1 mg iv q4h prn for withdrawal symptoms -valium 5 mg po q12h -EEG -Neuro on board Cardio -HTN -c/w atenolol 50 po qd, nifedipine 60 mg po qd -HLD -c/w atorvastatin 10 mg po qhs Psych -Bipolar disorder -c/w seroquel 400 mg po qhs, remeron 45 mg po qhs Prophylaxis -DVT ppx -heparin 5000 units sq bid -GI ppx -not indicated at this time FEN -NS @ 75 ml/hr -Monitor electrolytes, replete as necessary -Sodium controlled diet Dispo -Pt to be transferred to med/surg Problem List - Problems (1) Altered mental status Code(s): R41.82 - ALTERED MENTAL STATUS, UNSPECIFIED Qualifiers: Altered mental status type: unspecified Qualified Code(s): R41.82 - Altered mental status, unspecified (2) Benzodiazepine withdrawal Code(s): F13.239 - SEDATV/HYP/ANXIOLYTC DEPENDENCE W WITHDRAWAL, UNSP (3) Bipolar disorder Code(s): F31.9 - BIPOLAR DISORDER, UNSPECIFIED (4) Hypercholesteremia Code(s): E78.0 - PURE HYPERCHOLESTEROLEMIA * DO NOT USE * (5) Hypertension Code(s): I10 - ESSENTIAL (PRIMARY) HYPERTENSION (6) Smoking history Code(s): Z87.891 - PERSONAL HISTORY OF NICOTINE DEPENDENCE Visit type - Emergency Visit Emergency Visit: Yes ED Registration Date: 09/06/16 Care time: The patient presented to the Emergency Department on the above date and was hospitalized for further evaluation of their emergent condition. - New Patient This patient is new to me today: Yes Date on this admission: 09/10/16 - Critical Care Critical Care patient: Yes Total Critical Care Time (in minutes): 35 Critical Care Statement: The care of this patient involved high complexity decision making to prevent further life threatening deterioration of the patient 's condition and/or to evalute & treat vital organ system(s) failure or risk of failure.
[2016-09-10] MEDS: diazePAM 5 MG TABLET PO SCH ×2 (12:01→21:50)
--- NOTE | 2016-09-10 14:48 | PN ---
Progress Note (short form) - Note Progress Note: Renal Follow up for CKD Pt seen and examined in the ICU pt transfered to the ICU s/p witnessed seizure activity pt confused this morning on IVF no seizures overnight Vital Signs Temperature 99.5 F 09/10/16 14:00 Pulse Rate 64 09/10/16 14:00 Respiratory Rate 17 09/10/16 14:00 Blood Pressure 139/70 09/10/16 14:00 O2 Sat by Pulse Oximetry (%) 99 09/10/16 08:18 Intake & Output 09/07/16 09/08/16 09/09/16 09/10/16 23:59 23:59 23:59 23:59 Intake Total 1250 210 860 Output Total 252 Balance 1250 210 608 Weight 171 lb 11.2 oz Gen: NAD, awake and alert, confused CVS: RRR, No M/R Lungs: CTA Abd: soft NT/ND Ext: No edema, clubbing or cyanosis CBC, BMP 09/09/16 23:45 09/10/16 05:10 Laboratory Tests 03/24/16 03/24/16 03/24/16 09:50 09:50 09:50 Serum Osmolality Pending Lactic Acid 1.322 Uric Acid Pending Calcium Creatine Kinase 71 Troponin I < 0.02 Albumin Ur Random Sodium Ur Random Potassium Ur Random Chloride 03/24/16 09/09/16 09/10/16 11:22 23:45 05:10 Serum Osmolality Lactic Acid 7.2 H* Uric Acid 6.5 D Calcium 9.2 Creatine Kinase Troponin I Albumin 3.6 Ur Random Sodium 12 Ur Random Potassium 24.3 Ur Random Chloride < 10 09/10/16 09:00 Serum Osmolality Lactic Acid 1.5 Uric Acid Calcium Creatine Kinase Troponin I Albumin Ur Random Sodium Ur Random Potassium Ur Random Chloride Current Medications Acetaminophen (Tylenol -) 650 mg PO Q6H PRN PRN Reason: BACK PAIN Last Admin: 09/10/16 09:58 Dose: 650 mg Atenolol (Tenormin -) 50 mg PO DAILY [facility] Last Admin: 09/10/16 09:36 Dose: 50 mg Atorvastatin Calcium (Lipitor -) 10 mg PO HS [facility] Last Admin: 09/09/16 21:07 Dose: 10 mg Diazepam (Valium -) 5 mg PO BID [facility] Last Admin: 09/10/16 12:01 Dose: 5 mg Heparin Sodium (Porcine) (Heparin -) 5,000 unit SQ BID [facility] Last Admin: 09/10/16 09:36 Dose: 5,000 unit Sodium Chloride (Normal Saline -) 1,000 mls @ 75 mls/hr IV ASDIR [facility] Last Admin: 09/10/16 03:00 Dose: 75 mls/hr Lorazepam (Ativan Injection -) 1 mg IVPUSH Q4H PRN PRN Reason: WITHDRAWAL(CONT SUBST) Mirtazapine (Remeron -) 45 mg PO HS [facility] Last Admin: 09/09/16 21:07 Dose: 45 mg Nicotine (Nicoderm Patch -) 14 mg TD DAILY [facility] Last Admin: 09/10/16 09:38 Dose: 14 mg Nifedipine (Procardia Xl -) 60 mg PO DAILY [facility] Last Admin: 09/10/16 09:58 Dose: 60 mg Ondansetron HCl (Zofran Injection) 4 mg IVPB Q4H PRN PRN Reason: NAUSEA Last Admin: 09/10/16 00:19 Dose: 4 mg Polyethylene Glycol (Miralax (For Daily Use) -) 17 gm PO DAILY [facility] Last Admin: 09/10/16 10:00 Dose: Not Given Quetiapine Fumarate (Seroquel -) 400 mg PO HS [facility] Last Admin: 09/09/16 21:07 Dose: 400 mg a/P 66 year old woman with PMhx of Bipolar disorder, Hypertension, Hyperlipidemia, CKD (Cr 1.2-1.4 since 09/2015) presented with AMS and found to have seizures with BUN/Cr of 25/1.3. #CKD stage 3 w/o proteinuria prior work up showed neg ANCA (2011), Negative SPEP, and subnephrotic proteinuria CT of Abd done on prior admission showed no stones Renal function stable at this time no active sediment seen on UA continue isotonic saline Trend BUN/Cr #AMS/Seizure activity on Seroquel/Remeron ICU monitoring Neurology follow up #Hypertension BP improved this am on Nifdepine 60mg and Atenolol if BP remains elevated can change IVF to hypotonic fluids Thank you Augusto Riley DO
[2016-09-10 16:58] LABS: BASOPHIL 0.5 % (0-2.0); EOSINOPHIL 0.3 % (0-4.5); MCH 27.9 pg (25.7-33.7); MEAN CELL VOLUME 84.7 fl (80-96); PLATELET COUNT 256 K/MM3 (134-434); RDW 14.6 % (11.6-15.6)
--- NOTE | 2016-09-10 17:20 | EKG ---
Test Reason : Blood Pressure : / mmHG Vent. Rate : 081 BPM Atrial Rate : 081 BPM P-R Int : 136 ms QRS Dur : 084 ms QT Int : 382 ms P-R-T Axes : 053 037 055 degrees QTc Int : 443 ms POOR DATA QUALITY, INTERPRETATION MAY BE ADVERSELY AFFECTED SINUS RHYTHM WITH OCCASIONAL PREMATURE VENTRICULAR COMPLEXES OTHERWISE NORMAL ECG WHEN COMPARED WITH ECG OF 06-SEP-2016 17:31, PREMATURE VENTRICULAR COMPLEXES ARE NOW PRESENT CRITERIA FOR ANTEROSEPTAL INFARCT ARE NO LONGER PRESENT Confirmed by MINOO CURRY MD ([id number]) on 09/10/2016 5:20:25 PM Referred By: Confirmed By:MINOO CURRY MD
--- NOTE | 2016-09-10 19:09 | PN ---
Progress Note, Physician History of Present Illness: STABLE NO MORE SEIZURES PER RN STILL CONFUSED - Current Medication List Current Medications: Active Medications Acetaminophen (Tylenol -) 650 mg PO Q6H PRN PRN Reason: BACK PAIN Last Admin: 09/10/16 09:58 Dose: 650 mg Atenolol (Tenormin -) 50 mg PO DAILY [facility] Last Admin: 09/10/16 09:36 Dose: 50 mg Atorvastatin Calcium (Lipitor -) 10 mg PO HS [facility] Last Admin: 09/09/16 21:07 Dose: 10 mg Diazepam (Valium -) 5 mg PO BID [facility] Last Admin: 09/10/16 12:01 Dose: 5 mg Heparin Sodium (Porcine) (Heparin -) 5,000 unit SQ BID [facility] Last Admin: 09/10/16 09:36 Dose: 5,000 unit Sodium Chloride (Normal Saline -) 1,000 mls @ 75 mls/hr IV ASDIR [facility] Last Admin: 09/10/16 16:00 Dose: 75 mls/hr Lorazepam (Ativan Injection -) 1 mg IVPUSH Q4H PRN PRN Reason: WITHDRAWAL(CONT SUBST) Mirtazapine (Remeron -) 45 mg PO HS [facility] Last Admin: 09/09/16 21:07 Dose: 45 mg Nicotine (Nicoderm Patch -) 14 mg TD DAILY [facility] Last Admin: 09/10/16 09:38 Dose: 14 mg Nifedipine (Procardia Xl -) 60 mg PO DAILY [facility] Last Admin: 09/10/16 09:58 Dose: 60 mg Ondansetron HCl (Zofran Injection) 4 mg IVPB Q4H PRN PRN Reason: NAUSEA Last Admin: 09/10/16 00:19 Dose: 4 mg Polyethylene Glycol (Miralax (For Daily Use) -) 17 gm PO DAILY [facility] Last Admin: 09/10/16 10:00 Dose: Not Given Quetiapine Fumarate (Seroquel -) 400 mg PO HS [facility] Last Admin: 09/09/16 21:07 Dose: 400 mg - Objective Vital Signs: Vital Signs Temperature 99 F 09/10/16 18:00 Pulse Rate 65 09/10/16 18:00 Respiratory Rate 19 09/10/16 18:00 Blood Pressure 153/76 09/10/16 18:00 O2 Sat by Pulse Oximetry (%) 99 07/11/17 08:18 Constitutional: Yes: No Distress HENT: Yes: Atraumatic Neck: Yes: Supple Cardiovascular: Yes: Regular Rate and Rhythm Respiratory: Yes: CTA Bilaterally Gastrointestinal: Yes: Normal Bowel Sounds Extremities: Yes: WNL Neurological: Yes: Alert Labs: CBC, BMP 09/10/16 16:00 09/10/16 05:10 Problem List - Problems (1) Acute renal failure Assessment/Plan: nephro consult reviewed cr trending down fu labs Code(s): N17.9 - ACUTE KIDNEY FAILURE, UNSPECIFIED (2) Altered mental status Assessment/Plan: doing better Code(s): R41.82 - ALTERED MENTAL STATUS, UNSPECIFIED Qualifiers: Altered mental status type: unspecified Qualified Code(s): R41.82 - Altered mental status, unspecified (3) New onset seizure Assessment/Plan: NO MORE SEIZURE SINCE LAST NIGHT Code(s): R56.9 - UNSPECIFIED CONVULSIONS (4) Benzodiazepine withdrawal Assessment/Plan: OBSERVE PRN ATIVAN Code(s): F13.239 - SEDATV/HYP/ANXIOLYTC DEPENDENCE W WITHDRAWAL, UNSP (5) Lactic acid acidosis Assessment/Plan: S/P SEIZURES IV HYDRATION....RESOLVED Code(s): E87.2 - ACIDOSIS Assessment/Plan covering dr bentley...DAY 2 ICU CC TIME 35 MIN
[2016-09-10] MEDS: QUEtiapine FUMARATE 200 MG TABLET PO SCH (21:50)
[2016-09-10] MEDS: MIRTAZAPINE 15 MG TABLET (FP) PO SCH (21:50)
[2016-09-10] MEDS: ATORVASTATIN CA 10 MG TABLET (FP) PO SCH (21:50)
[2016-09-11] MEDS ORDERED: hydrALAZINE HCL 20 MG/ML VIAL IVPUSH ONE ×2 (03:00→03:25)
[2016-09-11 06:13] LABS: MCH 27.8 pg (25.7-33.7); MCHC 32.8 g/dl (32.0-36.0); MEAN CELL VOLUME 84.7 fl (80-96); MEAN PLT VOLUME 9.1 fl (7.5-11.1); PLATELET COUNT 258 K/MM3 (134-434); RDW 14.5 % (11.6-15.6); WHITE BLOOD COUNT 8.1 K/mm3 (4.0-10.0)
[2016-09-11 06:37] LABS: ALBUMIN 3.6 g/dl (3.4-5.0); ANION GAP 10 (8-16); CALCIUM 9.3 mg/dL (8.5-10.1); CO2 26 mmol/L (21-32); GLUCOSE,RANDOM 109 mg/dL (74-106); SGOT/AST 15 U/L (15-37); SGPT/ALT 22 U/L (12-78)
[2016-09-11 06:39] LABS: ALK PHOS 68 U/L (45-117); BILIRUBIN,TOTAL 0.3 mg/dL (0.2-1.0); CREATININE 1.1 mg/dL (0.55-1.02); TOT PROT 7.5 g/dl (6.4-8.2)
[2016-09-11] MEDS: SODIUM CHLORIDE 1,000 ML IV SCH (06:52)
--- NOTE | 2016-09-11 09:10 | PN ---
Progress Note, Physician - Current Medication List Current Medications: Active Medications Acetaminophen (Tylenol -) 650 mg PO Q6H PRN PRN Reason: BACK PAIN Last Admin: 09/10/16 09:58 Dose: 650 mg Atenolol (Tenormin -) 50 mg PO DAILY [facility] Last Admin: 09/10/16 09:36 Dose: 50 mg Atorvastatin Calcium (Lipitor -) 10 mg PO HS [facility] Last Admin: 09/10/16 21:50 Dose: 10 mg Diazepam (Valium -) 5 mg PO BID [facility] Last Admin: 09/10/16 21:50 Dose: 5 mg Heparin Sodium (Porcine) (Heparin -) 5,000 unit SQ BID [facility] Last Admin: 09/10/16 21:50 Dose: 5,000 unit Sodium Chloride (Normal Saline -) 1,000 mls @ 75 mls/hr IV ASDIR [facility] Last Admin: 09/11/16 06:52 Dose: 75 mls/hr Lorazepam (Ativan Injection -) 1 mg IVPUSH Q4H PRN PRN Reason: WITHDRAWAL(CONT SUBST) Mirtazapine (Remeron -) 45 mg PO HS [facility] Last Admin: 09/10/16 21:50 Dose: 45 mg Nicotine (Nicoderm Patch -) 14 mg TD DAILY [facility] Last Admin: 09/10/16 09:38 Dose: 14 mg Nifedipine (Procardia Xl -) 60 mg PO DAILY [facility] Last Admin: 09/10/16 09:58 Dose: 60 mg Ondansetron HCl (Zofran Injection) 4 mg IVPB Q4H PRN PRN Reason: NAUSEA Last Admin: 09/10/16 00:19 Dose: 4 mg Polyethylene Glycol (Miralax (For Daily Use) -) 17 gm PO DAILY [facility] Last Admin: 09/10/16 10:00 Dose: Not Given Quetiapine Fumarate (Seroquel -) 400 mg PO HS [facility] Last Admin: 09/10/16 21:50 Dose: 400 mg - Objective Vital Signs: Vital Signs Temperature 98.1 F 09/11/16 06:00 Pulse Rate 80 09/11/16 06:00 Respiratory Rate 16 09/11/16 06:00 Blood Pressure 160/80 09/11/16 06:00 O2 Sat by Pulse Oximetry (%) 99 09/10/16 20:23 Constitutional: Yes: No Distress, Calm Eyes: Yes: Conjunctiva Clear Cardiovascular: Yes: Regular Rate and Rhythm Respiratory: Yes: CTA Bilaterally Gastrointestinal: Yes: Soft Edema: No Neurological: Yes: Alert ...Motor Strength: WNL Labs: CBC, BMP 09/11/16 05:20 09/11/16 05:20 Laboratory Tests 09/11/16 09/11/16 09/11/16 05:20 05:20 05:20 WBC 8.1 Hgb 12.5 Plt Count 258 Sodium 143 Potassium 3.8 BUN 16 Creatinine 1.1 H Lactic Acid 1.4 Calcium 9.3 Total Bilirubin 0.3 D AST 15 ALT 22 Alkaline Phosphatase 68 - ....Imaging EKG: Image Reviewed (NSR With rare APCs with aberrant conduction) Assessment/Plan Assessment/Plan 66 year old woman with a history of HTN, HLD, bipolar disorder, anxiety admitted with AMS then with a reported seizure in the ER and seizure on floor. HTN:trend improving. -Continue current Procardia dose, 60mg daily Seizure: -as per Neuro DVT prophylaxis: -On SQ Heparin
--- NOTE | 2016-09-11 10:44 | PN ---
Teaching Attending Note Name of Resident: Dilip Weaver ATTENDING PHYSICIAN STATEMENT I saw and evaluated the patient. I reviewed the resident's note and discussed the case with the resident. I agree with the resident's findings and plan as documented. SUBJECTIVE: Pt seen and examined in the ICU. More alert, awake today, oriented to self, place and time which is improved from yesterday. Fixated on "pool, view, cigarettes.", unable to elaborate further. OBJECTIVE: Last Vital Signs Temp Pulse Resp BP Pulse Ox 98.6 F 86 16 161/77 99 09/11/16 10:00 09/11/16 10:00 09/11/16 10:00 09/11/16 10:00 09/11/16 09:00 Intake & Output 09/08/16 09/09/16 09/10/16 09/11/16 23:59 23:59 23:59 23:59 Intake Total 210 2110 Output Total 250 Balance 210 1860 Weight 172 lb 12.8 oz Gen: NAD at rest Heart: RRR Lung: decreased breath sounds Abd: soft, nontender Ext: no edema CBC, BMP 09/11/16 05:20 09/11/16 05:20 Active Medications Acetaminophen (Tylenol -) 650 mg PO Q6H PRN PRN Reason: BACK PAIN Last Admin: 09/10/16 09:58 Dose: 650 mg Atenolol (Tenormin -) 50 mg PO DAILY [facility] Last Admin: 09/10/16 09:36 Dose: 50 mg Atorvastatin Calcium (Lipitor -) 10 mg PO HS [facility] Last Admin: 09/10/16 21:50 Dose: 10 mg Diazepam (Valium -) 5 mg PO BID [facility] Last Admin: 09/10/16 21:50 Dose: 5 mg Heparin Sodium (Porcine) (Heparin -) 5,000 unit SQ BID [facility] Last Admin: 09/10/16 21:50 Dose: 5,000 unit Sodium Chloride (1/2 Normal Saline) 1,000 mls @ 75 mls/hr IV ASDIR [facility] Lorazepam (Ativan Injection -) 1 mg IVPUSH Q4H PRN PRN Reason: WITHDRAWAL(CONT SUBST) Mirtazapine (Remeron -) 45 mg PO HS [facility] Last Admin: 09/10/16 21:50 Dose: 45 mg Nicotine (Nicoderm Patch -) 14 mg TD DAILY [facility] Last Admin: 09/10/16 09:38 Dose: 14 mg Nifedipine (Procardia Xl -) 60 mg PO DAILY [facility] Last Admin: 09/10/16 09:58 Dose: 60 mg Ondansetron HCl (Zofran Injection) 4 mg IVPB Q4H PRN PRN Reason: NAUSEA Last Admin: 09/10/16 00:19 Dose: 4 mg Polyethylene Glycol (Miralax (For Daily Use) -) 17 gm PO DAILY [facility] Last Admin: 09/10/16 10:00 Dose: Not Given Quetiapine Fumarate (Seroquel -) 400 mg PO HS [facility] Last Admin: 09/10/16 21:50 Dose: 400 mg ASSESSMENT AND PLAN: Seizures attributed to benzo withdrawal Altered Mental Status ?Expressive Aphasia Acute Kidney Injury Bipolar Disorder HTN Hyperlipidemia - continue valium - ativan PRN - neuro f/u, may need MRI to r/o CVA - PO as tolerated - IVF - monitor urine output, creatinine - DVT prophylaxis
[2016-09-11] MEDS ORDERED: SODIUM CHLORIDE 0.45% 1,000 ML IV SCH (10:45)
[2016-09-11] MEDS: NIFEdipine E.R 60 MG TABLET (UD) PO SCH (10:48)
[2016-09-11] MEDS: diazePAM 5 MG TABLET PO SCH ×2 (10:48→22:59)
[2016-09-11] MEDS: HEPARIN NA (PORCINE) 5,000 UNITS/ML 1ML VIAL SQ SCH ×2 (10:48→22:59)
[2016-09-11] MEDS: ATENOLOL 50 MG TABLET (FP) PO SCH (10:48)
[2016-09-11] MEDS: POLYETHYLENE GLYCOL 3350 119 GM BTL PO SCH (11:00)
--- NOTE | 2016-09-11 11:35 | PN ---
Progress Note (short form) - Note Progress Note: 66 year old female histry of Bipolar disorer, anxiety , HTN , Hyperlipidemia. Patient came with confusion and anxiety as she was trying to cut down xanax . She takes xanax every four hour Patient had one witnessed seizures in ed and her blood pressure went upto 258 and she had two ct head and they were unremarkable and there was no bleed.Patient had mri of brain and eeg it was normal. she had one more seizure two days ago and than she was trasnferred to icu. Patient has been diorganized and probably having hallucination. Patinet has been stable since she is started on ativan round the clock. There is no focal symptoms, including dysphagia dysarthria or weakness at this time. Patient still disoriented to time. Second seizure was very brief . Past Medical History as above Medication reviewed in chart , she takes seraquel and xanax at home Neurological Examination Alert ,follow command, she is able tell em if this august and her name and age Patient is saying thing which does not make sense ( flight of ideas and psychosis ) eomi and no face asymmetry, pupils are reactive moving all extremity , 5/5 all four ext sensation is normal grossly CT head reviwed and it is unremarkable mri of brain adn eeg was normal Assessment-- New Onset seizure , most liklely benzo withdrawal. She seems to be having hallucination and psychosis. She has no seizures since benzo has been started round the clock. Continue with that Plan-- suggest to repeat ct head - reconsult [facility] for evaluation unlikely to be stroke, meningitis or status epilepticus - hold AED for now Thanks Silvestre Brown MD
--- NOTE | 2016-09-11 11:57 | EKG ---
Test Reason : Blood Pressure : / mmHG Vent. Rate : 106 BPM Atrial Rate : 106 BPM P-R Int : 152 ms QRS Dur : 076 ms QT Int : 366 ms P-R-T Axes : 069 037 075 degrees QTc Int : 486 ms SINUS TACHYCARDIA POSSIBLE LEFT ATRIAL ENLARGEMENT SEPTAL INFARCT (CITED ON OR BEFORE 08-MAR-2016) ABNORMAL ECG WHEN COMPARED WITH ECG OF 24-MAR-2016 10:25, NO SIGNIFICANT CHANGE WAS FOUND Confirmed by ANGELA HSIEH MD ([id number]) on 09/11/2016 11:57:16 AM Referred By: Confirmed By:ANGELA HSIEH MD
[2016-09-11] MEDS: NICOTINE 14 MG/24 HOURS TOPICAL PATCH TD SCH (12:00)
--- NOTE | 2016-09-11 12:53 | PN ---
Physical Exam: SUBJECTIVE: Patient seen and examined at bedside in the ICU. Pt states is aware of her name, place, and date (month/year). She gives an inconsistent history at this time as she sometimes complains of pain in her body and denies it at other times. She also continues to repeat certain words and phrases including "view, pool, cigarettes". No acute events overnight. OBJECTIVE: Vital Signs Temperature 98.6 F 09/11/16 10:00 Pulse Rate 86 09/11/16 10:00 Respiratory Rate 16 09/11/16 10:00 Blood Pressure 161/77 09/11/16 10:00 O2 Sat by Pulse Oximetry (%) 99 09/11/16 09:00 GENERAL: The patient is awake, alert, and oriented person, place, and time. Not in acute distress. -Speech is dysarthric at times HEAD: Normal with no signs of trauma. EYES: conjunctiva clear. ENT: Ears normal, nares patent. NECK: Trachea midline LUNGS: Breath sounds equal, clear to auscultation bilaterally HEART: Regular rate and rhythm, S1, S2 ABDOMEN: Soft, nontender, nondistended, normoactive bowel sounds EXTREMITIES: warm, well-perfused, no edema. NEUROLOGICAL:AMS, slow to speak, gait not observed. SKIN: Warm, dry Laboratory Results - last 24 hr 09/10/16 09/10/16 09/10/16 12:00 12:00 12:00 WBC RBC Hgb Hct MCV MCH MCHC RDW Plt Count MPV Neutrophils % Lymphocytes % Monocytes % Eosinophils % Basophils % Sodium Potassium Chloride Carbon Dioxide Anion Gap BUN Creatinine Creat Clearance w eGFR Random Glucose Lactic Acid Calcium Total Bilirubin AST ALT Alkaline Phosphatase Total Protein Albumin U Random Total Protein 8 Ur Random Sodium 37 Ur Random Urea Nitrogn Urine Creatinine 17.0 L 09/10/16 09/10/16 09/11/16 12:00 16:00 05:20 WBC 8.0 D RBC 4.09 Hgb 11.4 Hct 34.7 MCV 84.7 MCH 27.9 MCHC 33.0 RDW 14.6 Plt Count 256 D MPV 9.0 Neutrophils % 65.0 D Lymphocytes % 26.6 D Monocytes % 7.6 Eosinophils % 0.3 Basophils % 0.5 Sodium Potassium Chloride Carbon Dioxide Anion Gap BUN Creatinine Creat Clearance w eGFR Random Glucose Lactic Acid 1.4 Calcium Total Bilirubin AST ALT Alkaline Phosphatase Total Protein Albumin U Random Total Protein Ur Random Sodium Ur Random Urea Nitrogn 176 Urine Creatinine 09/11/16 09/11/16 05:20 05:20 WBC 8.1 RBC 4.51 Hgb 12.5 Hct 38.2 MCV 84.7 MCH 27.8 MCHC 32.8 RDW 14.5 Plt Count 258 MPV 9.1 Neutrophils % Lymphocytes % Monocytes % Eosinophils % Basophils % Sodium 143 Potassium 3.8 Chloride 107 Carbon Dioxide 26 Anion Gap 10 BUN 16 Creatinine 1.1 H Creat Clearance w eGFR 49.69 Random Glucose 109 H D Lactic Acid Calcium 9.3 Total Bilirubin 0.3 D AST 15 ALT 22 Alkaline Phosphatase 68 Total Protein 7.5 Albumin 3.6 U Random Total Protein Ur Random Sodium Ur Random Urea Nitrogn Urine Creatinine Imaging: CT head - no significant interval change or acute intracranial pathology is identified. No mass lesion, gross acute infarct, or intracranial hemorrhage is identified. Active Medications Generic Name Dose Route Start Last Admin Trade Name Freq PRN Reason Stop Dose Admin Acetaminophen 650 mg 09/08/16 14:38 09/10/16 09:58 Tylenol - PO 650 mg Q6H PRN Administration BACK PAIN Atenolol 50 mg 09/07/16 10:00 09/11/16 10:48 Tenormin - PO 50 mg DAILY [facility] Administration Atorvastatin Calcium 10 mg 09/07/16 22:00 09/10/16 21:50 Lipitor - PO 10 mg HS [facility] Administration Diazepam 5 mg 09/10/16 11:00 09/11/16 10:48 Valium - PO 5 mg BID [facility] Administration Heparin Sodium (Porcine) 5,000 unit 09/07/16 10:00 09/11/16 10:48 Heparin - SQ 5,000 unit BID [facility] Administration Sodium Chloride 1,000 mls @ 75 mls/hr 09/11/16 10:45 1/2 Normal Saline IV ASDIR [facility] Lorazepam 1 mg 09/09/16 23:43 Ativan Injection - IVPUSH Q4H PRN WITHDRAWAL(CONT SUBST) Mirtazapine 45 mg 09/07/16 22:00 09/10/16 21:50 Remeron - PO 45 mg HS [facility] Administration Nicotine 14 mg 09/07/16 10:00 09/10/16 09:38 Nicoderm Patch - TD 14 mg DAILY [facility] Administration Nifedipine 60 mg 09/10/16 10:00 09/11/16 10:48 Procardia Xl - PO 60 mg DAILY [facility] Administration Ondansetron HCl 4 mg 09/10/16 00:44 09/10/16 00:19 Zofran Injection IVPB 4 mg Q4H PRN Administration NAUSEA Polyethylene Glycol 17 gm 09/07/16 10:00 09/10/16 10:00 Miralax (For Daily Use) - PO Not Given DAILY [facility] Quetiapine Fumarate 400 mg 09/08/16 22:00 09/10/16 21:50 Seroquel - PO 400 mg HS [facility] Administration ASSESSMENT/PLAN: 66 y/o F w/ PMH of HTN, HLD, bipolar d/o, presented to ER for AMS after missing home xanax doses. Pt transferred to ICU due to seizure on floors. Neuro -AMS -some improvement in mental status today. Pt is able to tell her full name , place, and person. -secondary to benzo w/d, missed xanax doses -c/w valium 5 mg po q12h -c/w ativan 1 mg iv q4h prn for withdrawal symptoms -New onset seizures, likely secondary to benzo w/d -c/w ativan 1 mg iv q4h prn for withdrawal symptoms -valium 5 mg po q12h -EEG -Dysarthria -may be secondary to psych meds -CT head done stat to r/o stroke -CT head 09/11/16 - no significant interval change or acute intracranial pathology is identified. No mass lesion, gross acute infarct, or intracranial hemorrhage is identified. -Neuro on board Cardio -HTN -changed fluids to 1/2 NS @ 75 ml/hr -c/w atenolol 50 po qd, nifedipine 60 mg po qd -HLD -c/w atorvastatin 10 mg po qhs Psych -Bipolar disorder -c/w seroquel 400 mg po qhs, remeron 45 mg po qhs Prophylaxis -DVT ppx -heparin 5000 units sq bid -GI ppx -not indicated at this time FEN -1/2 NS @ 75 ml/hr -Monitor electrolytes, replete as necessary -Sodium controlled diet Dispo -Pt to be transferred to med/surg Problem List - Problems (1) Altered mental status Code(s): R41.82 - ALTERED MENTAL STATUS, UNSPECIFIED Qualifiers: Altered mental status type: unspecified Qualified Code(s): R41.82 - Altered mental status, unspecified (2) Benzodiazepine withdrawal Code(s): F13.239 - SEDATV/HYP/ANXIOLYTC DEPENDENCE W WITHDRAWAL, UNSP (3) Bipolar disorder Code(s): F31.9 - BIPOLAR DISORDER, UNSPECIFIED (4) Hypercholesteremia Code(s): E78.0 - PURE HYPERCHOLESTEROLEMIA * DO NOT USE * (5) Hypertension Code(s): I10 - ESSENTIAL (PRIMARY) HYPERTENSION (6) Smoking history Code(s): Z87.891 - PERSONAL HISTORY OF NICOTINE DEPENDENCE Visit type - Emergency Visit Emergency Visit: Yes ED Registration Date: 09/06/16 Care time: The patient presented to the Emergency Department on the above date and was hospitalized for further evaluation of their emergent condition. - New Patient This patient is new to me today: No - Critical Care Critical Care patient: Yes Total Critical Care Time (in minutes): 35 Critical Care Statement: The care of this patient involved high complexity decision making to prevent further life threatening deterioration of the patient 's condition and/or to evalute & treat vital organ system(s) failure or risk of failure.
--- NOTE | 2016-09-11 17:38 | PN ---
Progress Note, Physician History of Present Illness: STABLE NO MORE SEIZURES - Current Medication List Current Medications: Active Medications Acetaminophen (Tylenol -) 650 mg PO Q6H PRN PRN Reason: BACK PAIN Last Admin: 09/10/16 09:58 Dose: 650 mg Atenolol (Tenormin -) 50 mg PO DAILY [facility] Last Admin: 09/11/16 10:48 Dose: 50 mg Atorvastatin Calcium (Lipitor -) 10 mg PO HS [facility] Last Admin: 09/10/16 21:50 Dose: 10 mg Diazepam (Valium -) 5 mg PO BID [facility] Last Admin: 09/11/16 10:48 Dose: 5 mg Heparin Sodium (Porcine) (Heparin -) 5,000 unit SQ BID [facility] Last Admin: 09/11/16 10:48 Dose: 5,000 unit Sodium Chloride (1/2 Normal Saline) 1,000 mls @ 75 mls/hr IV ASDIR [facility] Lorazepam (Ativan Injection -) 1 mg IVPUSH Q4H PRN PRN Reason: WITHDRAWAL(CONT SUBST) Mirtazapine (Remeron -) 45 mg PO HS [facility] Last Admin: 09/10/16 21:50 Dose: 45 mg Nicotine (Nicoderm Patch -) 14 mg TD DAILY [facility] Last Admin: 09/10/16 09:38 Dose: 14 mg Nifedipine (Procardia Xl -) 60 mg PO DAILY [facility] Last Admin: 09/11/16 10:48 Dose: 60 mg Ondansetron HCl (Zofran Injection) 4 mg IVPB Q4H PRN PRN Reason: NAUSEA Last Admin: 09/10/16 00:19 Dose: 4 mg Polyethylene Glycol (Miralax (For Daily Use) -) 17 gm PO DAILY [facility] Last Admin: 09/10/16 10:00 Dose: Not Given Quetiapine Fumarate (Seroquel -) 400 mg PO [facility] Last Admin: 09/10/16 21:50 Dose: 400 mg - Objective Vital Signs: Vital Signs Temperature 98.4 F 09/11/16 14:00 Pulse Rate 82 09/11/16 14:00 Respiratory Rate 16 09/11/16 14:00 Blood Pressure 165/95 09/11/16 14:00 O2 Sat by Pulse Oximetry (%) 99 09/11/16 09:00 Constitutional: Yes: Calm HENT: Yes: Atraumatic Neck: Yes: Supple Cardiovascular: Yes: Regular Rate and Rhythm Respiratory: Yes: Rhonchi Gastrointestinal: Yes: Normal Bowel Sounds Extremities: Yes: WNL Neurological: Yes: Alert Labs: CBC, BMP 09/11/16 05:20 09/11/16 05:20 Problem List - Problems (1) Acute renal failure Assessment/Plan: nephro consult reviewed cr trending down fu labs Code(s): N17.9 - ACUTE KIDNEY FAILURE, UNSPECIFIED (2) Altered mental status Assessment/Plan: doing better Code(s): R41.82 - ALTERED MENTAL STATUS, UNSPECIFIED Qualifiers: Altered mental status type: unspecified Qualified Code(s): R41.82 - Altered mental status, unspecified (3) New onset seizure Assessment/Plan: NO MORE SEIZURE ON PRN ATIVAN Code(s): R56.9 - UNSPECIFIED CONVULSIONS (4) Benzodiazepine withdrawal Assessment/Plan: OBSERVE PRN ATIVAN Code(s): F13.239 - SEDATV/HYP/ANXIOLYTC DEPENDENCE W WITHDRAWAL, UNSP (5) Lactic acid acidosis Assessment/Plan: S/P SEIZURES IV HYDRATION....RESOLVED Code(s): E87.2 - ACIDOSIS Assessment/Plan covering dr bentley...DAY 3 SHE WILL RESUME CARE FROM TOMORROW
[2016-09-11] MEDS ORDERED: PT OWN MED DRAWER 7, Y5N ONE (20:59)
[2016-09-11] MEDS: MIRTAZAPINE 15 MG TABLET (FP) PO SCH (22:59)
[2016-09-11] MEDS: ATORVASTATIN CA 10 MG TABLET (FP) PO SCH (22:59)
[2016-09-11] MEDS: QUEtiapine FUMARATE 200 MG TABLET PO SCH (23:00)
[2016-09-11] MEDS ORDERED: MAG HYDROX/AL HYDROX/SIMETH 30 ML UNIT-DOSE CUP PO ONE (23:45)
[2016-09-12 08:09] LABS: ALBUMIN 3.3 g/dl (3.4-5.0); ANION GAP 8 (8-16); CALCIUM 8.8 mg/dL (8.5-10.1); CO2 26 mmol/L (21-32); CREATININE 1.3 mg/dL (0.55-1.02); GLUCOSE,RANDOM 109 mg/dL (74-106); SGOT/AST 16 U/L (15-37); SGPT/ALT 25 U/L (12-78)
[2016-09-12 08:12] LABS: ALK PHOS 63 U/L (45-117); BILIRUBIN,TOTAL 0.6 mg/dL (0.2-1.0)
--- NOTE | 2016-09-12 09:06 | PN ---
Progress Note, Physician Chief Complaint: repeat head ct negative Neuro input reviewed. Today, she is not speaking - Current Medication List Current Medications: Active Medications Acetaminophen (Tylenol -) 650 mg PO Q6H PRN PRN Reason: BACK PAIN Last Admin: 09/10/16 09:58 Dose: 650 mg Atenolol (Tenormin -) 50 mg PO DAILY [facility] Last Admin: 09/11/16 10:48 Dose: 50 mg Atorvastatin Calcium (Lipitor -) 10 mg PO HS [facility] Last Admin: 09/11/16 22:59 Dose: 10 mg Diazepam (Valium -) 5 mg PO BID [facility] Last Admin: 09/11/16 22:59 Dose: 5 mg Heparin Sodium (Porcine) (Heparin -) 5,000 unit SQ BID [facility] Last Admin: 09/11/16 22:59 Dose: 5,000 unit Sodium Chloride (1/2 Normal Saline) 1,000 mls @ 75 mls/hr IV ASDIR [facility] Last Admin: 09/11/16 08:00 Dose: 75 mls/hr Lorazepam (Ativan Injection -) 1 mg IVPUSH Q4H PRN PRN Reason: WITHDRAWAL(CONT SUBST) Mirtazapine (Remeron -) 45 mg PO HS [facility] Last Admin: 09/11/16 22:59 Dose: 45 mg Nicotine (Nicoderm Patch -) 14 mg TD DAILY [facility] Last Admin: 09/11/16 12:00 Dose: 14 mg Nifedipine (Procardia Xl -) 60 mg PO DAILY [facility] Last Admin: 09/11/16 10:48 Dose: 60 mg Ondansetron HCl (Zofran Injection) 4 mg IVPB Q4H PRN PRN Reason: NAUSEA Last Admin: 09/10/16 00:19 Dose: 4 mg Polyethylene Glycol (Miralax (For Daily Use) -) 17 gm PO DAILY [facility] Last Admin: 09/11/16 11:00 Dose: Not Given Quetiapine Fumarate (Seroquel -) 400 mg PO HS [facility] Last Admin: 09/11/16 23:00 Dose: 400 mg - Objective Vital Signs: Vital Signs Temperature 97.2 F L 09/12/16 06:00 Pulse Rate 70 09/12/16 06:00 Respiratory Rate 20 09/12/16 06:00 Blood Pressure 149/95 09/12/16 06:00 O2 Sat by Pulse Oximetry (%) 99 09/11/16 21:00 Constitutional: Yes: No Distress Eyes: Yes: Conjunctiva Clear Cardiovascular: Yes: Regular Rate and Rhythm Respiratory: Yes: CTA Bilaterally Gastrointestinal: Yes: Soft Edema: No Labs: CBC, BMP 09/11/16 05:20 09/12/16 06:55 Laboratory Tests 09/06/16 09/12/16 15:00 06:55 Sodium 138 Potassium 4.0 BUN 21 H D Creatinine 1.3 H Calcium 8.8 Total Bilirubin 0.6 D AST 16 ALT 25 Alkaline Phosphatase 63 TSH 1.94 D Assessment/Plan 66 year old woman with a history of HTN, HLD, bipolar disorder, anxiety admitted with AMS then with a reported seizure in the ER and seizure on floor. Seizure likely precipitated by benzo withdrawal. HTN:trend shows she is mildly above goal. -add evening dose of Procardia XL 30mg daily. Seizure: -as per Neuro DVT prophylaxis: -On SQ Heparin
[2016-09-12] MEDS ORDERED: PT OWN MED DRAWER 7, Y5N ONE (10:30)
[2016-09-12] MEDS: POLYETHYLENE GLYCOL 3350 119 GM BTL PO SCH (10:35)
[2016-09-12] MEDS: ATENOLOL 50 MG TABLET (FP) PO SCH (10:35)
[2016-09-12] MEDS: HEPARIN NA (PORCINE) 5,000 UNITS/ML 1ML VIAL SQ SCH ×2 (10:36→21:35)
[2016-09-12] MEDS: diazePAM 5 MG TABLET PO SCH ×2 (10:36→21:36)
[2016-09-12] MEDS: NICOTINE 14 MG/24 HOURS TOPICAL PATCH TD SCH (10:36)
[2016-09-12] MEDS: NIFEdipine E.R 60 MG TABLET (UD) PO SCH (10:38)
[2016-09-12] MEDS ORDERED: LORazepam 2 MG/ML SDV VIAL IM ONE (12:00)
--- NOTE | 2016-09-12 15:30 | PN ---
Progress Note (short form) - Note Progress Note: Renal Follow up for CKD Pt seen and examined at the bedside awake and alert but not talking refused examination IVF not hanging Vital Signs Temperature 99.6 F 09/12/16 09:00 Pulse Rate 80 09/12/16 09:00 Respiratory Rate 18 09/12/16 09:00 Blood Pressure 199/95 09/12/16 09:00 O2 Sat by Pulse Oximetry (%) 99 09/11/16 21:00 Intake & Output 09/09/16 09/10/16 09/11/16 09/12/16 23:59 23:59 23:59 23:59 Intake Total 210 2110 300 Output Total 250 4 Balance 210 1860 296 Weight 172 lb 12.8 oz 172 lb 12.8 oz pt refused physical exam CBC, BMP 09/11/16 05:20 09/12/16 06:55 Current Medications Acetaminophen (Tylenol -) 650 mg PO Q6H PRN PRN Reason: BACK PAIN Last Admin: 09/10/16 09:58 Dose: 650 mg Atenolol (Tenormin -) 50 mg PO DAILY [facility] Last Admin: 09/12/16 10:35 Dose: 50 mg Atorvastatin Calcium (Lipitor -) 10 mg PO HS [facility] Last Admin: 09/11/16 22:59 Dose: 10 mg Diazepam (Valium -) 5 mg PO BID [facility] Last Admin: 09/12/16 10:36 Dose: 5 mg Heparin Sodium (Porcine) (Heparin -) 5,000 unit SQ BID [facility] Last Admin: 09/12/16 10:36 Dose: 5,000 unit Sodium Chloride (1/2 Normal Saline) 1,000 mls @ 75 mls/hr IV ASDIR [facility] Last Admin: 09/11/16 08:00 Dose: 75 mls/hr Lorazepam (Ativan Injection -) 1 mg IVPUSH Q4H PRN PRN Reason: WITHDRAWAL(CONT SUBST) Mirtazapine (Remeron -) 45 mg PO HS [facility] Last Admin: 09/11/16 22:59 Dose: 45 mg Nicotine (Nicoderm Patch -) 14 mg TD DAILY [facility] Last Admin: 09/12/16 10:36 Dose: 14 mg Nifedipine (Procardia Xl -) 60 mg PO DAILY [facility] Last Admin: 09/12/16 10:38 Dose: 60 mg Nifedipine (Procardia Xl -) 30 mg PO DAILY@1800 [facility] Ondansetron HCl (Zofran Injection) 4 mg IVPB Q4H PRN PRN Reason: NAUSEA Last Admin: 09/10/16 00:19 Dose: 4 mg Polyethylene Glycol (Miralax (For Daily Use) -) 17 gm PO DAILY [facility] Last Admin: 09/12/16 10:35 Dose: 17 gm Quetiapine Fumarate (Seroquel -) 400 mg PO HS [facility] Last Admin: 09/11/16 23:00 Dose: 400 mg a/P 66 year old woman with PMhx of Bipolar disorder, Hypertension, Hyperlipidemia, CKD (Cr 1.2-1.4 since 09/2015) presented with AMS and found to have seizures with BUN/Cr of 25/1.3. #CKD stage 3 w/o proteinuria prior work up showed neg ANCA (2011), Negative SPEP, and subnephrotic proteinuria Renal function stable and at baseline can d/c IVF Trend BUN/Cr and electrolytes can consider addition of SAURAV or ARB if BP remains above gaol #AMS/Seizure activity secondary to benzo withdrawal CT head negative on Seroquel/Remeron/Ativan PRN Neurology following #Hypertension Continue Nifedpine and Atenolol can consider addition of SAURAV/ARB if bp still not controlled d/c IVF low salt diet Thank you Augusto Riley DO
[2016-09-12] MEDS: NIFEdipine E.R. 30 MG TABLET (FP) PO SCH (18:09)
--- NOTE | 2016-09-12 19:51 | CON.PSY ---
Psychiatry Consult Chief Complaint: Asked to see s patient for periods of agitation - Current Medications Current Medications: Active Medications Acetaminophen (Tylenol -) 650 mg PO Q6H PRN PRN Reason: BACK PAIN Last Admin: 09/10/16 09:58 Dose: 650 mg Atenolol (Tenormin -) 50 mg PO DAILY [facility] Last Admin: 09/12/16 10:35 Dose: 50 mg Atorvastatin Calcium (Lipitor -) 10 mg PO HS [facility] Last Admin: 09/11/16 22:59 Dose: 10 mg Diazepam (Valium -) 5 mg PO BID [facility] Last Admin: 09/12/16 10:36 Dose: 5 mg Heparin Sodium (Porcine) (Heparin -) 5,000 unit SQ BID [facility] Last Admin: 09/12/16 10:36 Dose: 5,000 unit Lorazepam (Ativan Injection -) 1 mg IVPUSH Q4H PRN PRN Reason: WITHDRAWAL(CONT SUBST) Mirtazapine (Remeron -) 45 mg PO HS [facility] Last Admin: 09/11/16 22:59 Dose: 45 mg Nicotine (Nicoderm Patch -) 14 mg TD DAILY [facility] Last Admin: 09/12/16 10:36 Dose: 14 mg Nifedipine (Procardia Xl -) 60 mg PO DAILY [facility] Last Admin: 09/12/16 10:38 Dose: 60 mg Nifedipine (Procardia Xl -) 30 mg PO DAILY@1800 [facility] Last Admin: 09/12/16 18:09 Dose: Not Given Ondansetron HCl (Zofran Injection) 4 mg IVPB Q4H PRN PRN Reason: NAUSEA Last Admin: 09/10/16 00:19 Dose: 4 mg Polyethylene Glycol (Miralax (For Daily Use) -) 17 gm PO DAILY [facility] Last Admin: 09/12/16 10:35 Dose: 17 gm Quetiapine Fumarate (Seroquel -) 400 mg PO HS [facility] Last Admin: 09/11/16 23:00 Dose: 400 mg - Allergies Allergies: Allergies Allergy/AdvReac Type Severity Reaction Status Date / Time amoxicillin trihydrate Allergy Intermediate Difficulty Verified 09/06/16 13:45 [From Augmentin] Breathing potassium clavulanate Allergy Intermediate Difficulty Verified 09/06/16 13:45 [From Augmentin] Breathing clindamycin Allergy Verified 09/06/16 13:45 Sulfa (Sulfonamide Allergy Verified 09/06/16 13:45 Antibiotics)
--- NOTE | 2016-09-12 20:05 | CON.PSY ---
Psychiatry Consult Chief Complaint: Asked to see this patient, a 66 year old female who is having periods of agitation History of Present Problem: Chart review, labs reviewed History obtained from RN as well. Patient is refusing to participate in this assessment. Patient had periods of agitation during the day and is being treated with valium 5 mgs bid. Symptoms: reports: Depressed Mood (Patient has refused to give talk / volunteer any info.) - Current Medications Current Medications: Active Medications Acetaminophen (Tylenol -) 650 mg PO Q6H PRN PRN Reason: BACK PAIN Last Admin: 09/10/16 09:58 Dose: 650 mg Atenolol (Tenormin -) 50 mg PO DAILY [facility] Last Admin: 09/12/16 10:35 Dose: 50 mg Atorvastatin Calcium (Lipitor -) 10 mg PO HS [facility] Last Admin: 09/11/16 22:59 Dose: 10 mg Diazepam (Valium -) 5 mg PO BID [facility] Last Admin: 09/12/16 10:36 Dose: 5 mg Heparin Sodium (Porcine) (Heparin -) 5,000 unit SQ BID [facility] Last Admin: 09/12/16 10:36 Dose: 5,000 unit Lorazepam (Ativan Injection -) 1 mg IVPUSH Q4H PRN PRN Reason: WITHDRAWAL(CONT SUBST) Mirtazapine (Remeron -) 45 mg PO HS [facility] Last Admin: 09/11/16 22:59 Dose: 45 mg Nicotine (Nicoderm Patch -) 14 mg TD DAILY [facility] Last Admin: 09/12/16 10:36 Dose: 14 mg Nifedipine (Procardia Xl -) 60 mg PO DAILY [facility] Last Admin: 09/12/16 10:38 Dose: 60 mg Nifedipine (Procardia Xl -) 30 mg PO DAILY@1800 [facility] Last Admin: 09/12/16 18:09 Dose: Not Given Ondansetron HCl (Zofran Injection) 4 mg IVPB Q4H PRN PRN Reason: NAUSEA Last Admin: 09/10/16 00:19 Dose: 4 mg Polyethylene Glycol (Miralax (For Daily Use) -) 17 gm PO DAILY [facility] Last Admin: 09/12/16 10:35 Dose: 17 gm Quetiapine Fumarate (Seroquel -) 400 mg PO HS [facility] Last Admin: 09/11/16 23:00 Dose: 400 mg - Allergies Allergies: Allergies Allergy/AdvReac Type Severity Reaction Status Date / Time amoxicillin trihydrate Allergy Intermediate Difficulty Verified 09/06/16 13:45 [From Augmentin] Breathing potassium clavulanate Allergy Intermediate Difficulty Verified 09/06/16 13:45 [From Augmentin] Breathing clindamycin Allergy Verified 09/06/16 13:45 Sulfa (Sulfonamide Allergy Verified 09/06/16 13:45 Antibiotics) - Current Mental Status Evaluation Appearance: Other (quiet, calm ) - Affect Affect: Constrictive - Mood Mood: Irritable - Psychomotor Activity Psychomotor Activity: Normal (no further assessment obtained) Assessment/Plan Patient has not given me permission to engage in any evaluation and has refused . I visited her 2 times this evening and was unsuccessful. Rec At this time, she is calm and without any signs of agitation continue valium prn continue seroquel/remeron and her outside psychiatrist upon discharge.
[2016-09-12] MEDS: ATORVASTATIN CA 10 MG TABLET (FP) PO SCH (21:35)
[2016-09-12] MEDS: QUEtiapine FUMARATE 200 MG TABLET PO SCH (21:35)
[2016-09-12] MEDS: MIRTAZAPINE 15 MG TABLET (FP) PO SCH (21:35)
--- NOTE | 2016-09-13 01:18 | PN ---
Progress Note, Physician History of Present Illness: Pt seen and examined on 09/12/16 however note is being entered now - Current Medication List Current Medications: Active Medications Acetaminophen (Tylenol -) 650 mg PO Q6H PRN PRN Reason: BACK PAIN Last Admin: 09/10/16 09:58 Dose: 650 mg Atenolol (Tenormin -) 50 mg PO DAILY [facility] Last Admin: 09/12/16 10:35 Dose: 50 mg Atorvastatin Calcium (Lipitor -) 10 mg PO HS [facility] Last Admin: 09/12/16 21:35 Dose: Not Given Diazepam (Valium -) 5 mg PO BID [facility] Last Admin: 09/12/16 21:36 Dose: Not Given Heparin Sodium (Porcine) (Heparin -) 5,000 unit SQ BID [facility] Last Admin: 09/12/16 21:35 Dose: Not Given Mirtazapine (Remeron -) 45 mg PO HS [facility] Last Admin: 09/12/16 21:35 Dose: Not Given Nicotine (Nicoderm Patch -) 14 mg TD DAILY [facility] Last Admin: 09/12/16 10:36 Dose: 14 mg Nifedipine (Procardia Xl -) 60 mg PO DAILY [facility] Last Admin: 09/12/16 10:38 Dose: 60 mg Nifedipine (Procardia Xl -) 30 mg PO DAILY@1800 [facility] Last Admin: 09/12/16 18:09 Dose: Not Given Ondansetron HCl (Zofran Injection) 4 mg IVPB Q4H PRN PRN Reason: NAUSEA Last Admin: 09/10/16 00:19 Dose: 4 mg Polyethylene Glycol (Miralax (For Daily Use) -) 17 gm PO DAILY [facility] Last Admin: 09/12/16 10:35 Dose: 17 gm Quetiapine Fumarate (Seroquel -) 400 mg PO HS [facility] Last Admin: 09/12/16 21:35 Dose: Not Given - Objective Vital Signs: Vital Signs Temperature 99.6 F 09/12/16 09:00 Pulse Rate 80 09/12/16 09:00 Respiratory Rate 18 09/12/16 09:00 Blood Pressure 199/95 09/12/16 09:00 O2 Sat by Pulse Oximetry (%) 99 09/11/16 21:00 Constitutional: Yes: Anxious HENT: Yes: WNL Neck: Yes: WNL, Supple Cardiovascular: Yes: WNL, Regular Rate and Rhythm Respiratory: Yes: WNL, Regular, CTA Bilaterally Gastrointestinal: Yes: WNL, Normal Bowel Sounds, Soft Labs: CBC, BMP 09/11/16 05:20 09/12/16 06:55 Problem List - Problems (1) Altered mental status Assessment/Plan: New onset seizure ?Benzo w/drawal MRI head unremarkable Code(s): R41.82 - ALTERED MENTAL STATUS, UNSPECIFIED Qualifiers: Altered mental status type: unspecified Qualified Code(s): R41.82 - Altered mental status, unspecified (2) Acute renal failure Assessment/Plan: Monitor labs periodically Code(s): N17.9 - ACUTE KIDNEY FAILURE, UNSPECIFIED (3) Hyponatremia Code(s): E87.1 - HYPO-OSMOLALITY AND HYPONATREMIA (4) Hypertension Code(s): I10 - ESSENTIAL (PRIMARY) HYPERTENSION (5) Hypercholesteremia Code(s): E78.0 - PURE HYPERCHOLESTEROLEMIA * DO NOT USE * (6) Bipolar disorder Code(s): F31.9 - BIPOLAR DISORDER, UNSPECIFIED (7) Smoking history Code(s): Z87.891 - PERSONAL HISTORY OF NICOTINE DEPENDENCE
[2016-09-13] MEDS ORDERED: diazePAM 5 MG TABLET ONE (05:57)
[2016-09-13] MEDS ORDERED: diazePAM 5 MG TABLET PO ONE (07:00)
[2016-09-13] MEDS ORDERED: ONDANSETRON 4 MG/2 ML VIAL IVPB PRN (08:00)
--- NOTE | 2016-09-13 08:51 | PN ---
Progress Note, Physician Chief Complaint: more alert and conversant today but still with some word finding difficulty History of Present Illness: BP 140/90 after med adjusted yesterday - Current Medication List Current Medications: Active Medications Acetaminophen (Tylenol -) 650 mg PO Q6H PRN PRN Reason: BACK PAIN Atenolol (Tenormin -) 50 mg PO DAILY [facility] Atorvastatin Calcium (Lipitor -) 10 mg PO HS [facility] Diazepam (Valium -) 5 mg PO Q12H [facility] Heparin Sodium (Porcine) (Heparin -) 5,000 unit SQ BID [facility] Mirtazapine (Remeron -) 45 mg PO HS [facility] Nicotine (Nicoderm Patch -) 14 mg TD DAILY [facility] Nifedipine (Procardia Xl -) 30 mg PO DAILY@1800 [facility] Last Admin: 09/12/16 18:09 Dose: Not Given Nifedipine (Procardia Xl -) 60 mg PO DAILY [facility] Ondansetron HCl (Zofran Injection) 4 mg IVPB Q4H PRN PRN Reason: NAUSEA Polyethylene Glycol (Miralax (For Daily Use) -) 17 gm PO DAILY [facility] Quetiapine Fumarate (Seroquel -) 400 mg PO HS [facility] - Objective Vital Signs: Vital Signs Temperature 98.4 F 09/13/16 05:00 Pulse Rate 76 09/13/16 05:00 Respiratory Rate 18 09/13/16 05:00 Blood Pressure 146/91 09/13/16 05:00 O2 Sat by Pulse Oximetry (%) 99 09/11/16 21:00 Constitutional: Yes: No Distress Eyes: Yes: Conjunctiva Clear Cardiovascular: Yes: Regular Rate and Rhythm Respiratory: Yes: CTA Bilaterally Gastrointestinal: Yes: Soft Edema: No Labs: CBC, BMP 09/11/16 05:20 09/12/16 06:55 Assessment/Plan Assessment/Plan 66 year old woman with a history of HTN, HLD, bipolar disorder, anxiety admitted with AMS then with a reported seizure in the ER and seizure on floor. Seizure likely precipitated by benzo withdrawal. HTN: -seems improved after titration of Procardia yesterday Seizure: -as per Neuro Psych: -input noted DVT prophylaxis: -On SQ Heparin
[2016-09-13] MEDS ORDERED: PT OWN MED DRAWER 7, Y5N ONE (10:43)
[2016-09-13] MEDS: NIFEdipine E.R 60 MG TABLET (UD) PO SCH (10:49)
[2016-09-13] MEDS: NICOTINE 14 MG/24 HOURS TOPICAL PATCH TD SCH (10:49)
[2016-09-13] MEDS: ATENOLOL 50 MG TABLET (FP) PO SCH (10:50)
[2016-09-13] MEDS: diazePAM 5 MG TABLET PO SCH ×2 (10:50→22:25)
[2016-09-13] MEDS: POLYETHYLENE GLYCOL 3350 119 GM BTL PO SCH (10:52)
[2016-09-13] MEDS: HEPARIN NA (PORCINE) 5,000 UNITS/ML 1ML VIAL SQ SCH ×2 (10:52→21:14)
--- NOTE | 2016-09-13 15:10 | PN ---
Progress Note, Physician Chief Complaint: The patient seen in her bed. Seems comfortable. Some difficulty to speech is noted. Minimal dysarthria. Good urine output. No chest pain. No Shortness of breath. History of Present Illness: Mrs. Beckham is a 66 y/o female, admitted with acute altered mentation. The patient has h/o Anxiety, Bipolar disordere, Hypertension, Hyperlipdemia. The patient probably skipped her Xanax doses before admission. Had an episode of acute seizure while in the ER. Attributed to Xanax withdrawal. The patient reportedly going through very stressful situations in life. The patient denies chest pain, but gets periods of shortness of breath. - Current Medication List Current Medications: Active Medications Acetaminophen (Tylenol -) 650 mg PO Q6H PRN PRN Reason: BACK PAIN Atenolol (Tenormin -) 50 mg PO DAILY [facility] Last Admin: 09/13/16 10:50 Dose: 50 mg Atorvastatin Calcium (Lipitor -) 10 mg PO HS [facility] Diazepam (Valium -) 5 mg PO Q12H [facility] Last Admin: 09/13/16 10:50 Dose: 5 mg Heparin Sodium (Porcine) (Heparin -) 5,000 unit SQ BID [facility] Last Admin: 09/13/16 10:52 Dose: 5,000 unit Mirtazapine (Remeron -) 45 mg PO HS [facility] Nicotine (Nicoderm Patch -) 14 mg TD DAILY [facility] Last Admin: 09/13/16 10:49 Dose: 14 mg Nifedipine (Procardia Xl -) 30 mg PO DAILY@1800 [facility] Last Admin: 09/12/16 18:09 Dose: Not Given Nifedipine (Procardia Xl -) 60 mg PO DAILY [facility] Last Admin: 09/13/16 10:49 Dose: 60 mg Ondansetron HCl (Zofran Injection) 4 mg IVPB Q4H PRN PRN Reason: NAUSEA Polyethylene Glycol (Miralax (For Daily Use) -) 17 gm PO DAILY [facility] Last Admin: 09/13/16 10:52 Dose: Not Given Quetiapine Fumarate (Seroquel -) 400 mg PO [facility] - Objective Vital Signs: Vital Signs Temperature 98.4 F 09/13/16 05:00 Pulse Rate 76 09/13/16 05:00 Respiratory Rate 18 09/13/16 05:00 Blood Pressure 146/91 09/13/16 05:00 O2 Sat by Pulse Oximetry (%) 99 09/11/16 21:00 Constitutional: Yes: Calm, Anxious Eyes: Yes: Conjunctiva Clear HENT: Yes: Normocephalic Respiratory: Yes: CTA Bilaterally Gastrointestinal: Yes: Normal Bowel Sounds, Soft Genitourinary: No: CVA Tenderness - Left, CVA Tenderness - Right Edema: No Labs: CBC, BMP 09/11/16 05:20 09/12/16 06:55 Problem List - Problems (1) Acute renal failure Code(s): N17.9 - ACUTE KIDNEY FAILURE, UNSPECIFIED (2) Altered mental status Code(s): R41.82 - ALTERED MENTAL STATUS, UNSPECIFIED Qualifiers: Altered mental status type: unspecified Qualified Code(s): R41.82 - Altered mental status, unspecified (3) New onset seizure Code(s): R56.9 - UNSPECIFIED CONVULSIONS (4) Anemia Code(s): D64.9 - ANEMIA, UNSPECIFIED (5) Benzodiazepine withdrawal Code(s): F13.239 - SEDATV/HYP/ANXIOLYTC DEPENDENCE W WITHDRAWAL, UNSP (6) Hypercholesteremia Code(s): E78.0 - PURE HYPERCHOLESTEROLEMIA * DO NOT USE * (7) Hypertension Code(s): I10 - ESSENTIAL (PRIMARY) HYPERTENSION (8) Hyponatremia Code(s): E87.1 - HYPO-OSMOLALITY AND HYPONATREMIA Assessment/Plan Acute Kidney Injury: The azotemia fairly stable. Chronic Kidney Disease, Stage 3, due to Microvascular renal disease. ( Hypertension, Atherosclerosis) Hyponatremia,Resolved. Hypertension. Suboptyimal control. Noted changes in the regimen. Will watch. Suggest. Maintain euvolemia. Observe on the current Anti Hypertensive regimen. Will monitor the BP and Renal functions with you. Thank you. Olivia Becker MD
[2016-09-13] MEDS: NIFEdipine E.R. 30 MG TABLET (FP) PO SCH (17:08)
--- NOTE | 2016-09-13 18:30 | CONSULT ---
Consult - text type - Consultation Consultation Note: NEUROLOGY CONSULTATION is greatly appreciated. This 66 yo RH woman with h/o HTN, Chol and Bipolar disease is known to me from prior admission (03/26/16) for hyponatremia. On mirtazapine (45 mg), Xanax (2 mg QID) and Quetiapine (400 q HS). Still smokes 2 PPD Admitted by son with altered mental status and Na+=129. Pt had a witnessed "seizure" in ER attributed to her having attempted to reduce her xanax dose at home. Now back on Xanax 2 mg q 12 hrs but also getting valium. Pt requesting more Valium CT of head (09/11) and MRI of brain (09/07) reveiwed: Both show mod atrophy and scattered microvascular changes. TO: No bruits. No head trauma. NEURO: MS/Speech normal. Intermittent episodes of stereotyped "stuttering" interrupted on command. CN: II-XII: Normal Motor: R arm drops to the side of the face. Normal grasps and Mc. Normal reflexes. Toes downgoing. Coord: Normal Sensory: Normal IMP: Normal neurological exam Apparent right sided weakness and speech changes are likely nonphysiological. Possible benzodiazepine withdrawal seizure. SUGGESTIONS: Alprazolam (xanax) is a short-acting agent (t 1/2= 4-6 hours) so is inappropriate for BID Rx of anxiety. Consider changing to Clonazepam 1 mg q8 hrs or 2mg q 2 hrs. Consider increasing quetiapine to 100 in AM/ 400 in PM and gradually increase the AM dose until anxiety better No Rx for seizures at this time. Thank you very much, Darryl Mota MD
[2016-09-13] MEDS: ATORVASTATIN CA 10 MG TABLET (FP) PO SCH (21:09)
[2016-09-13] MEDS: QUEtiapine FUMARATE 200 MG TABLET PO SCH (21:10)
[2016-09-13] MEDS: MIRTAZAPINE 15 MG TABLET (FP) PO SCH (21:10)
--- NOTE | 2016-09-13 23:52 | PN ---
Progress Note, Physician - Current Medication List Current Medications: Active Medications Acetaminophen (Tylenol -) 650 mg PO Q6H PRN PRN Reason: BACK PAIN Atenolol (Tenormin -) 50 mg PO DAILY [facility] Last Admin: 09/13/16 10:50 Dose: 50 mg Atorvastatin Calcium (Lipitor -) 10 mg PO HS [facility] Last Admin: 09/13/16 21:09 Dose: 10 mg Diazepam (Valium -) 5 mg PO Q12H [facility] Last Admin: 09/13/16 22:25 Dose: 5 mg Heparin Sodium (Porcine) (Heparin -) 5,000 unit SQ BID [facility] Last Admin: 09/13/16 21:14 Dose: 5,000 unit Mirtazapine (Remeron -) 45 mg PO HS [facility] Last Admin: 09/13/16 21:10 Dose: 45 mg Nicotine (Nicoderm Patch -) 14 mg TD DAILY [facility] Last Admin: 09/13/16 10:49 Dose: 14 mg Nifedipine (Procardia Xl -) 30 mg PO DAILY@1800 [facility] Last Admin: 09/13/16 17:08 Dose: 30 mg Nifedipine (Procardia Xl -) 60 mg PO DAILY [facility] Last Admin: 09/13/16 10:49 Dose: 60 mg Ondansetron HCl (Zofran Injection) 4 mg IVPB Q4H PRN PRN Reason: NAUSEA Polyethylene Glycol (Miralax (For Daily Use) -) 17 gm PO DAILY [facility] Last Admin: 09/13/16 10:52 Dose: Not Given Quetiapine Fumarate (Seroquel -) 400 mg PO [facility] Last Admin: 09/13/16 21:10 Dose: 400 mg - Objective Vital Signs: Vital Signs Temperature 99.8 F H 09/13/16 21:00 Pulse Rate 62 09/13/16 21:00 Respiratory Rate 18 09/13/16 21:00 Blood Pressure 160/97 09/13/16 21:00 O2 Sat by Pulse Oximetry (%) 98 09/13/16 21:00 Labs: CBC, BMP 09/11/16 05:20 09/12/16 06:55 Problem List - Problems (1) Altered mental status Code(s): R41.82 - ALTERED MENTAL STATUS, UNSPECIFIED Qualifiers: Altered mental status type: unspecified Qualified Code(s): R41.82 - Altered mental status, unspecified (2) Acute renal failure Code(s): N17.9 - ACUTE KIDNEY FAILURE, UNSPECIFIED (3) Hyponatremia Code(s): E87.1 - HYPO-OSMOLALITY AND HYPONATREMIA (4) Hypertension Code(s): I10 - ESSENTIAL (PRIMARY) HYPERTENSION (5) Hypercholesteremia Code(s): E78.0 - PURE HYPERCHOLESTEROLEMIA * DO NOT USE * (6) Bipolar disorder Code(s): F31.9 - BIPOLAR DISORDER, UNSPECIFIED (7) Smoking history Code(s): Z87.891 - PERSONAL HISTORY OF NICOTINE DEPENDENCE
[2016-09-14 07:30] LABS: BASOPHIL 0.7 % (0-2.0); EOSINOPHIL 0.6 % (0-4.5); MCH 28.5 pg (25.7-33.7); MCHC 33.3 g/dl (32.0-36.0); MEAN CELL VOLUME 85.5 fl (80-96); MEAN PLT VOLUME 8.7 fl (7.5-11.1); NEUTROPHILS 58.7 % (42.8-82.8); PLATELET COUNT 231 K/MM3 (134-434); RDW 14.8 % (11.6-15.6); WHITE BLOOD COUNT 6.5 K/mm3 (4.0-10.0)
[2016-09-14 07:51] LABS: ALBUMIN 3.7 g/dl (3.4-5.0); ANION GAP 9 (8-16); CALCIUM 9.4 mg/dL (8.5-10.1); CO2 28 mmol/L (21-32); GLUCOSE,RANDOM 106 mg/dL (74-106); SGPT/ALT 29 U/L (12-78)
[2016-09-14 07:54] LABS: ALK PHOS 73 U/L (45-117); BILIRUBIN,TOTAL 0.4 mg/dL (0.2-1.0); CREATININE 1.4 mg/dL (0.55-1.02); SGOT/AST 18 U/L (15-37); TOT PROT 7.8 g/dl (6.4-8.2)
--- NOTE | 2016-09-14 08:29 | PN ---
Progress Note, Physician - Current Medication List Current Medications: Active Medications Acetaminophen (Tylenol -) 650 mg PO Q6H PRN PRN Reason: BACK PAIN Atenolol (Tenormin -) 50 mg PO DAILY [facility] Last Admin: 09/13/16 10:50 Dose: 50 mg Atorvastatin Calcium (Lipitor -) 10 mg PO HS [facility] Last Admin: 09/13/16 21:09 Dose: 10 mg Diazepam (Valium -) 5 mg PO Q12H [facility] Last Admin: 09/13/16 22:25 Dose: 5 mg Heparin Sodium (Porcine) (Heparin -) 5,000 unit SQ BID [facility] Last Admin: 09/13/16 21:14 Dose: 5,000 unit Mirtazapine (Remeron -) 45 mg PO HS [facility] Last Admin: 09/13/16 21:10 Dose: 45 mg Nicotine (Nicoderm Patch -) 14 mg TD DAILY [facility] Last Admin: 09/13/16 10:49 Dose: 14 mg Nifedipine (Procardia Xl -) 30 mg PO DAILY@1800 [facility] Last Admin: 09/13/16 17:08 Dose: 30 mg Nifedipine (Procardia Xl -) 60 mg PO DAILY [facility] Last Admin: 09/13/16 10:49 Dose: 60 mg Ondansetron HCl (Zofran Injection) 4 mg IVPB Q4H PRN PRN Reason: NAUSEA Polyethylene Glycol (Miralax (For Daily Use) -) 17 gm PO DAILY [facility] Last Admin: 09/13/16 10:52 Dose: Not Given Quetiapine Fumarate (Seroquel -) 400 mg PO [facility] Last Admin: 09/13/16 21:10 Dose: 400 mg - Objective Vital Signs: Vital Signs Temperature 98.0 F 09/14/16 05:00 Pulse Rate 72 09/14/16 05:00 Respiratory Rate 18 09/14/16 05:00 Blood Pressure 123/79 09/14/16 05:00 O2 Sat by Pulse Oximetry (%) 98 09/13/16 21:00 Eyes: Yes: WNL, Conjunctiva Clear, EOM Intact HENT: Yes: WNL, Atraumatic, Normocephalic Neck: Yes: WNL, Supple, Trachea Midline Cardiovascular: Yes: WNL, Regular Rate and Rhythm Respiratory: Yes: WNL, Regular, CTA Bilaterally Gastrointestinal: Yes: WNL, Normal Bowel Sounds Genitourinary: Yes: WNL Musculoskeletal: Yes: WNL Extremities: Yes: WNL Edema: No Integumentary: Yes: WNL Neurological: Yes: WNL, Alert, Oriented ...Motor Strength: WNL Psychiatric: Yes: WNL Labs: CBC, BMP 09/14/16 06:00 09/14/16 06:00 Assessment/Plan 66 year old woman with a history of HTN, HLD, bipolar disorder, anxiety admitted with AMS then with a reported seizure in the ER and seizure on floor. Seizure likely precipitated by benzo withdrawal. HTN: -seems improved after titration of Procardia yesterday Seizure: -as per Neuro Psych: -input noted DVT prophylaxis: -On SQ Heparin
[2016-09-14] MEDS ORDERED: PT OWN MED DRAWER 7, Y5N ONE (09:24)
[2016-09-14] MEDS: POLYETHYLENE GLYCOL 3350 119 GM BTL PO SCH (09:28)
[2016-09-14] MEDS: NIFEdipine E.R 60 MG TABLET (UD) PO SCH (09:29)
[2016-09-14] MEDS: HEPARIN NA (PORCINE) 5,000 UNITS/ML 1ML VIAL SQ SCH ×2 (09:29→22:08)
[2016-09-14] MEDS: ATENOLOL 50 MG TABLET (FP) PO SCH (09:29)
[2016-09-14] MEDS: NICOTINE 14 MG/24 HOURS TOPICAL PATCH TD SCH (09:30)
[2016-09-14] MEDS: diazePAM 5 MG TABLET PO SCH (10:23)
--- NOTE | 2016-09-14 11:38 | PN ---
Progress Note (short form) - Note Progress Note: Renal Follow up for CKD Pt seen and examined at the bedside awake and alert no overnight events BP high overnight, but improved this am (prior to meds) Vital Signs Temperature 97.4 F L 09/14/16 08:10 Pulse Rate 70 09/14/16 08:10 Respiratory Rate 18 09/14/16 08:10 Blood Pressure 143/90 09/14/16 08:10 O2 Sat by Pulse Oximetry (%) 98 09/13/16 21:00 Intake & Output 09/11/16 09/12/16 09/13/16 09/14/16 23:59 23:59 23:59 23:59 Intake Total 300 600 Output Total 4 Balance 296 600 Weight 172 lb 12.8 oz 172 lb 12.8 oz 169 lb 8 oz Gen: NAD CVS: RRR Lungs: CTA abd: soft NT Ext; No edema CBC, BMP 09/14/16 06:00 09/14/16 06:00 Current Medications Acetaminophen (Tylenol -) 650 mg PO Q6H PRN PRN Reason: BACK PAIN Atenolol (Tenormin -) 50 mg PO DAILY [facility] Last Admin: 09/14/16 09:29 Dose: 50 mg Atorvastatin Calcium (Lipitor -) 10 mg PO HS [facility] Last Admin: 09/13/16 21:09 Dose: 10 mg Diazepam (Valium -) 5 mg PO Q12H [facility] Last Admin: 09/14/16 10:23 Dose: 5 mg Heparin Sodium (Porcine) (Heparin -) 5,000 unit SQ BID [facility] Last Admin: 09/14/16 09:29 Dose: 5,000 unit Mirtazapine (Remeron -) 45 mg PO HS [facility] Last Admin: 09/13/16 21:10 Dose: 45 mg Nicotine (Nicoderm Patch -) 14 mg TD DAILY [facility] Last Admin: 09/14/16 09:30 Dose: 14 mg Nifedipine (Procardia Xl -) 30 mg PO DAILY@1800 [facility] Last Admin: 09/13/16 17:08 Dose: 30 mg Nifedipine (Procardia Xl -) 60 mg PO DAILY [facility] Last Admin: 09/14/16 09:29 Dose: 60 mg Ondansetron HCl (Zofran Injection) 4 mg IVPB Q4H PRN PRN Reason: NAUSEA Polyethylene Glycol (Miralax (For Daily Use) -) 17 gm PO DAILY [facility] Last Admin: 09/14/16 09:28 Dose: 17 gm Quetiapine Fumarate (Seroquel -) 400 mg PO HS [facility] Last Admin: 09/13/16 21:10 Dose: 400 mg a/P 66 year old woman with PMhx of Bipolar disorder, Hypertension, Hyperlipidemia, CKD (Cr 1.2-1.4 since 09/2015) presented with AMS and found to have seizures with BUN/Cr of 25/1.3. #CKD stage 3 w/o proteinuria Renal function remains stable continue to trend BUN/Cr as inpatient #AMS/Seizure activity secondary to benzo withdrawal CT head negative on Seroquel/Remeron/Ativan PRN Neurology following #Hypertension Continue Nifedpine and Atenolol BP improved this am, will continue to monitor trend and titrate meds as needed Thank you Augusto Riley DO
[2016-09-14] MEDS ORDERED: MAG HYDROX/AL HYDROX/SIMETH 30 ML UNIT-DOSE CUP PO ONE (12:45)
[2016-09-14] MEDS: NIFEdipine E.R. 30 MG TABLET (FP) PO SCH (17:35)
[2016-09-14] MEDS: clonazePAM 0.5 MG TABLET PO SCH (20:32)
[2016-09-14] MEDS ORDERED: clonazePAM 0.5 MG TABLET PO SCH (22:00)
[2016-09-14] MEDS: MIRTAZAPINE 15 MG TABLET (FP) PO SCH (22:08)
[2016-09-14] MEDS: QUEtiapine FUMARATE 200 MG TABLET PO SCH (22:08)
[2016-09-14] MEDS: ATORVASTATIN CA 10 MG TABLET (FP) PO SCH (22:08)
--- NOTE | 2016-09-14 23:48 | PN ---
Progress Note, Physician - Current Medication List Current Medications: Active Medications Acetaminophen (Tylenol -) 650 mg PO Q6H PRN PRN Reason: BACK PAIN Atenolol (Tenormin -) 50 mg PO DAILY [facility] Last Admin: 09/14/16 09:29 Dose: 50 mg Atorvastatin Calcium (Lipitor -) 10 mg PO HS [facility] Last Admin: 09/14/16 22:08 Dose: 10 mg Clonazepam (Klonopin -) 1 mg PO BID [facility] Last Admin: 09/14/16 20:32 Dose: 1 mg Heparin Sodium (Porcine) (Heparin -) 5,000 unit SQ BID [facility] Last Admin: 09/14/16 22:08 Dose: 5,000 unit Mirtazapine (Remeron -) 45 mg PO HS [facility] Last Admin: 09/14/16 22:08 Dose: 45 mg Nicotine (Nicoderm Patch -) 14 mg TD DAILY [facility] Last Admin: 09/14/16 09:30 Dose: 14 mg Nifedipine (Procardia Xl -) 30 mg PO DAILY@1800 [facility] Last Admin: 09/14/16 17:35 Dose: 30 mg Nifedipine (Procardia Xl -) 60 mg PO DAILY [facility] Last Admin: 09/14/16 09:29 Dose: 60 mg Ondansetron HCl (Zofran Injection) 4 mg IVPB Q4H PRN PRN Reason: NAUSEA Polyethylene Glycol (Miralax (For Daily Use) -) 17 gm PO DAILY [facility] Last Admin: 09/14/16 09:28 Dose: 17 gm Quetiapine Fumarate (Seroquel -) 400 mg PO [facility] Last Admin: 09/14/16 22:08 Dose: 400 mg - Objective Vital Signs: Vital Signs Temperature 97.8 F 09/14/16 22:00 Pulse Rate 88 09/14/16 22:00 Respiratory Rate 18 09/14/16 22:00 Blood Pressure 110/65 09/14/16 22:00 O2 Sat by Pulse Oximetry (%) 98 09/14/16 21:00 Labs: CBC, BMP 09/14/16 06:00 09/14/16 06:00 Problem List - Problems (1) Altered mental status Code(s): R41.82 - ALTERED MENTAL STATUS, UNSPECIFIED Qualifiers: Altered mental status type: unspecified Qualified Code(s): R41.82 - Altered mental status, unspecified (2) Acute renal failure Code(s): N17.9 - ACUTE KIDNEY FAILURE, UNSPECIFIED (3) Hyponatremia Code(s): E87.1 - HYPO-OSMOLALITY AND HYPONATREMIA (4) Hypertension Code(s): I10 - ESSENTIAL (PRIMARY) HYPERTENSION (5) Hypercholesteremia Code(s): E78.0 - PURE HYPERCHOLESTEROLEMIA * DO NOT USE * (6) Bipolar disorder Code(s): F31.9 - BIPOLAR DISORDER, UNSPECIFIED (7) Smoking history Code(s): Z87.891 - PERSONAL HISTORY OF NICOTINE DEPENDENCE
[2016-09-15] MEDS ORDERED: PT OWN MED DRAWER 7, Y5N ONE ×2 (09:58→22:12)
[2016-09-15] MEDS: POLYETHYLENE GLYCOL 3350 119 GM BTL PO SCH (10:02)
[2016-09-15] MEDS: HEPARIN NA (PORCINE) 5,000 UNITS/ML 1ML VIAL SQ SCH ×2 (10:03→22:29)
[2016-09-15] MEDS: NICOTINE 14 MG/24 HOURS TOPICAL PATCH TD SCH (10:08)
[2016-09-15] MEDS: NIFEdipine E.R 60 MG TABLET (UD) PO SCH ×2 (11:43→13:05)
[2016-09-15] MEDS: clonazePAM 0.5 MG TABLET PO SCH ×3 (11:43→22:30)
[2016-09-15] MEDS: ATENOLOL 50 MG TABLET (FP) PO SCH ×2 (11:43→13:05)
--- NOTE | 2016-09-15 12:22 | PN ---
Progress Note, Physician - Current Medication List Current Medications: Active Medications Acetaminophen (Tylenol -) 650 mg PO Q6H PRN PRN Reason: BACK PAIN Atenolol (Tenormin -) 50 mg PO DAILY [facility] Last Admin: 09/15/16 11:43 Dose: Not Given Atorvastatin Calcium (Lipitor -) 10 mg PO HS [facility] Last Admin: 09/14/16 22:08 Dose: 10 mg Clonazepam (Klonopin -) 1 mg PO BID [facility] Last Admin: 09/15/16 11:43 Dose: Not Given Heparin Sodium (Porcine) (Heparin -) 5,000 unit SQ BID [facility] Last Admin: 09/15/16 10:03 Dose: 5,000 unit Mirtazapine (Remeron -) 45 mg PO HS [facility] Last Admin: 09/14/16 22:08 Dose: 45 mg Nicotine (Nicoderm Patch -) 14 mg TD DAILY [facility] Last Admin: 09/15/16 10:08 Dose: 14 mg Nifedipine (Procardia Xl -) 30 mg PO DAILY@1800 [facility] Last Admin: 09/14/16 17:35 Dose: 30 mg Nifedipine (Procardia Xl -) 60 mg PO DAILY [facility] Last Admin: 09/15/16 11:43 Dose: Not Given Ondansetron HCl (Zofran Injection) 4 mg IVPB Q4H PRN PRN Reason: NAUSEA Polyethylene Glycol (Miralax (For Daily Use) -) 17 gm PO DAILY [facility] Last Admin: 09/15/16 10:02 Dose: 17 gm Quetiapine Fumarate (Seroquel -) 400 mg PO [facility] Last Admin: 09/14/16 22:08 Dose: 400 mg - Objective Vital Signs: Vital Signs Temperature 98.9 F 09/15/16 08:45 Pulse Rate 72 09/15/16 08:45 Respiratory Rate 20 09/15/16 08:45 Blood Pressure 141/73 09/15/16 08:45 O2 Sat by Pulse Oximetry (%) 98 09/14/16 21:00 Eyes: Yes: WNL, Conjunctiva Clear, EOM Intact HENT: Yes: WNL, Atraumatic, Normocephalic Neck: Yes: WNL, Supple, Trachea Midline Cardiovascular: Yes: WNL, Regular Rate and Rhythm Respiratory: Yes: WNL, Regular, CTA Bilaterally Gastrointestinal: Yes: WNL, Normal Bowel Sounds Genitourinary: Yes: WNL Musculoskeletal: Yes: WNL Extremities: Yes: WNL Edema: No Integumentary: Yes: WNL Neurological: Yes: WNL, Alert, Oriented ...Motor Strength: WNL Psychiatric: Yes: WNL Labs: CBC, BMP 09/14/16 06:00 09/14/16 06:00 Assessment/Plan 66 year old woman with a history of HTN, HLD, bipolar disorder, anxiety admitted with AMS then with a reported seizure in the ER and seizure on floor. Seizure likely precipitated by benzo withdrawal. HTN: -seems improved after titration of Procardia yesterday Seizure: -as per Neuro Psych: -input noted DVT prophylaxis: -On SQ Heparin
[2016-09-15] MEDS ORDERED: MAG HYDROX/AL HYDROX/SIMETH 30 ML UNIT-DOSE CUP PO PRN (16:37)
[2016-09-15] MEDS ORDERED: HALOPERIDOL LACTATE 5 MG/ML IM ONE (16:45)
[2016-09-15] MEDS: NIFEdipine E.R. 30 MG TABLET (FP) PO SCH (17:31)
[2016-09-15] MEDS: QUEtiapine FUMARATE 200 MG TABLET PO SCH (22:30)
[2016-09-15] MEDS: ATORVASTATIN CA 10 MG TABLET (FP) PO SCH (22:30)
[2016-09-15] MEDS: ACETAMINOPHEN 325 MG TABLET (FP) PO PRN (22:30)
[2016-09-15] MEDS: MIRTAZAPINE 15 MG TABLET (FP) PO SCH (22:30)
--- NOTE | 2016-09-15 22:44 | PN ---
Progress Note, Physician History of Present Illness: Pt agitated today ?psychosis - Current Medication List Current Medications: Active Medications Acetaminophen (Tylenol -) 650 mg PO Q6H PRN PRN Reason: BACK PAIN Last Admin: 09/15/16 22:30 Dose: 650 mg Al Hydroxide/Mg Hydroxide (Mylanta Oral Suspension -) 30 ml PO Q8H PRN PRN Reason: INDIGESTION Last Admin: 09/15/16 16:47 Dose: 30 ml Atenolol (Tenormin -) 50 mg PO DAILY [facility] Last Admin: 09/15/16 13:05 Dose: 50 mg Atorvastatin Calcium (Lipitor -) 10 mg PO HS [facility] Last Admin: 09/15/16 22:30 Dose: 10 mg Clonazepam (Klonopin -) 1 mg PO BID [facility] Last Admin: 09/15/16 22:30 Dose: 1 mg Heparin Sodium (Porcine) (Heparin -) 5,000 unit SQ BID [facility] Last Admin: 09/15/16 22:29 Dose: 5,000 unit Mirtazapine (Remeron -) 45 mg PO HS [facility] Last Admin: 09/15/16 22:30 Dose: 45 mg Nicotine (Nicoderm Patch -) 14 mg TD DAILY [facility] Last Admin: 09/15/16 10:08 Dose: 14 mg Nifedipine (Procardia Xl -) 30 mg PO DAILY@1800 [facility] Last Admin: 09/15/16 17:31 Dose: 30 mg Nifedipine (Procardia Xl -) 60 mg PO DAILY [facility] Last Admin: 09/15/16 13:05 Dose: 60 mg Ondansetron HCl (Zofran Injection) 4 mg IVPB Q4H PRN PRN Reason: NAUSEA Polyethylene Glycol (Miralax (For Daily Use) -) 17 gm PO DAILY [facility] Last Admin: 09/15/16 10:02 Dose: 17 gm Quetiapine Fumarate (Seroquel -) 400 mg PO HS [facility] Last Admin: 09/15/16 22:30 Dose: 400 mg - Objective Vital Signs: Vital Signs Temperature 97.3 F L 09/15/16 17:07 Pulse Rate 77 09/15/16 17:25 Respiratory Rate 20 09/15/16 17:07 Blood Pressure 138/71 09/15/16 17:25 O2 Sat by Pulse Oximetry (%) 98 09/14/16 21:00 Constitutional: Yes: Anxious Eyes: Yes: WNL HENT: Yes: WNL Neck: Yes: WNL, Supple Cardiovascular: Yes: WNL, Regular Rate and Rhythm Respiratory: Yes: WNL, Regular, CTA Bilaterally Gastrointestinal: Yes: WNL, Normal Bowel Sounds, Soft Labs: CBC, BMP 09/14/16 06:00 09/14/16 06:00 Problem List - Problems (1) Altered mental status Assessment/Plan: New onset seizure ?Benzo w/drawal MRI head unremarkable PT eval in am DC planning for am Code(s): R41.82 - ALTERED MENTAL STATUS, UNSPECIFIED Qualifiers: Altered mental status type: unspecified Qualified Code(s): R41.82 - Altered mental status, unspecified (2) CKD (chronic kidney disease) Assessment/Plan: Check electrolytes in am Encourage PO intake Code(s): N18.9 - CHRONIC KIDNEY DISEASE, UNSPECIFIED (3) Bipolar disorder Assessment/Plan: Cont seroquel/remeron Will dc valium and add longer acting clonazepam and monitor Spoke to pt's son about dc planning for am Code(s): F31.9 - BIPOLAR DISORDER, UNSPECIFIED (4) Hyponatremia Assessment/Plan: Na+ returned to normal Code(s): E87.1 - HYPO-OSMOLALITY AND HYPONATREMIA (5) Hypertension Code(s): I10 - ESSENTIAL (PRIMARY) HYPERTENSION (6) Hypercholesteremia Assessment/Plan: Cont lipitor Code(s): E78.0 - PURE HYPERCHOLESTEROLEMIA * DO NOT USE * (7) Smoking history Assessment/Plan: Nicotine Patch Code(s): Z87.891 - PERSONAL HISTORY OF NICOTINE DEPENDENCE
[2016-09-16] MEDS: ACETAMINOPHEN 325 MG TABLET (FP) PO PRN (08:54)
[2016-09-16 10:18] VITALS: BP 159/91; PULSE 88; TEMP 98
[2016-09-16] MEDS: HEPARIN NA (PORCINE) 5,000 UNITS/ML 1ML VIAL SQ SCH (10:21)
[2016-09-16] MEDS: clonazePAM 0.5 MG TABLET PO SCH (10:22)
[2016-09-16] MEDS: NICOTINE 14 MG/24 HOURS TOPICAL PATCH TD SCH (10:23)
[2016-09-16] MEDS: NIFEdipine E.R 60 MG TABLET (UD) PO SCH (10:23)
[2016-09-16] MEDS: ATENOLOL 50 MG TABLET (FP) PO SCH (10:23)
[2016-09-16] MEDS: POLYETHYLENE GLYCOL 3350 119 GM BTL PO SCH (10:29)
== END 2016-09-16 12:09 | disposition home or self-care (01) | DRG 101 ==
LOC: JER 13:44 → JERBED 19:26 → J4S 09-07 02:12 → JICU 09-10 02:21 → J8W 09-11 18:58
PROVIDERS: ADMIT Internal Medicine; ATTEND Internal Medicine
DX: G40.409 Other generalized epilepsy and epileptic syndromes, not intractable, without status epilepticus (principal); N17.9 Acute kidney failure, unspecified; E87.1 Hypo-osmolality and hyponatremia; F13.239 Sedative, hypnotic or anxiolytic dependence with withdrawal, unspecified; E87.2 Acidosis; T42.4X5A Adverse effect of benzodiazepines, initial encounter; F31.9 Bipolar disorder, unspecified; E78.00 Pure hypercholesterolemia, unspecified; I12.9 Hypertensive chronic kidney disease with stage 1 through stage 4 chronic kidney disease, or unspecified chronic kidney disease; K21.9 Gastro-esophageal reflux disease without esophagitis; F17.210 Nicotine dependence, cigarettes, uncomplicated; E87.8 Other disorders of electrolyte and fluid balance, not elsewhere classified; N18.3 Chronic kidney disease, stage 3 (moderate); R45.1 Restlessness and agitation
CPT/HCPCS: 36415; 70450-TC; 70551-TC; 71010-TC; 76775-TC; 80053; 81003; 81015; 82550; 82570; 83605; 84146; 84156; 84300; 84443; 84484; 84540; 84550; 85025; 85027; 87081; 87086; 93005; 93010; 95816; 97116-GP; 97162-GP; 99284-25; J1644

== ENCOUNTER 2016-12-01 22:29 | Emergency (ER) | payer OTHER ==
[2016-12-01 22:54] VITALS: BP 121/73; PULSE 76; TEMP 97.2; BMI 28.1
[2016-12-01] MEDS ORDERED: ALPRAZolam 0.25 MG TABLET PO ONE (23:22)
[2016-12-01] MEDS ORDERED: ALPRAZolam 0.25 MG TABLET ONE (23:32)
--- NOTE | 2016-12-01 23:45 | PDOC ---
History of Present Illness - History of Present Illness Initial Comments: 12/01/16 23:20 Ms. Beckham is a 66 yo female with a significant past medical history of Bipolar disorder and hyponatremia who presents to the emergency department complaining of a "severe panic attack" this evening. She says that her tongue feels swollen "like she will swallow it" and that her head feels like it will explode. The patient denies chest pain, shortness of breath, and dizziness. Denies fever , chills, nausea, vomit, diarrhea and constipation. Denies dysuria, frequency, urgency and hematuria. <Dandre Hamilton - Last Filed: 12/01/16 23:57> <Yoni Miller - Last Filed: 12/02/16 01:44> - General Chief Complaint: Psychiatric Stated Complaint: PANIC ATTACK Time Seen by Provider: 12/01/16 23:20 Past History - Past Medical History Anemia: No GI Disorders: (acid reflux) HTN: Yes Hypercholesterolemia: Yes Psychiatric Problems: Yes (OCD) - Surgical History Abdominal Surgery: Yes Cholecystectomy: Yes - Immunization History Immunization Up to Date: Yes - Suicide/Smoking/Psychosocial Hx Smoking History: Current every day smoker Have you smoked in the past 12 months: Yes Number of Cigarettes Smoked Daily: 5 Cigars Per Day: 0 Information on smoking cessation initiated: Yes 'Breaking Loose' booklet given: 02/16/16 Hx Alcohol Use: No Drug/Substance Use Hx: No Substance Use Type: None Hx Substance Use Treatment: No <Dandre Hamilton - Last Filed: 12/01/16 23:57> <Yoni Miller - Last Filed: 12/02/16 01:44> - Past Medical History Allergies/Adverse Reactions: Allergies Allergy/AdvReac Type Severity Reaction Status Date / Time amoxicillin trihydrate Allergy Intermediate Difficulty Verified 09/06/16 13:45 [From Augmentin] Breathing potassium clavulanate Allergy Intermediate Difficulty Verified 09/06/16 13:45 [From Augmentin] Breathing clindamycin Allergy Verified 09/06/16 13:45 Sulfa (Sulfonamide Allergy Verified 09/06/16 13:45 Antibiotics) Home Medications: Ambulatory Orders Atorvastatin Ca [Lipitor] 10 mg PO HS 08/14/15 Polyethylene Glycol 3350 [Miralax 119 gm Btl -] 17 gm PO DAILY bottle 09/07/15 Acetaminophen [Tylenol .Regular Strength -] 650 mg PO Q4H PRN #0 tablet Mirtazapine [Remeron -] 45 mg PO HS #30 tablet 03/09/16 Ondansetron [Zofran -] 4 mg PO TID PRN #21 tablet 03/09/16 Quetiapine Fumarate [Seroquel -] 400 mg PO HS #30 tablet 03/09/16 Atenolol [Tenormin -] 50 mg PO DAILY #30 tablet 03/28/16 Clonazepam [Klonopin -] 1 mg PO BID #60 tablet MDD 2 09/15/16 Nicotine Patch [Nicoderm Patch -] 14 mg TD DAILY #30 patch 09/15/16 Alprazolam [Xanax] 0.25 mg PO Q8H PRN #8 tablet MDD 4 12/02/16 Review of Systems - Review of Systems Comments:: 12/01/16 23:21 GENERAL/CONSTITUTIONAL: No fever or chills. No weakness. HEAD, EYES, EARS, NOSE AND THROAT: +Headache this evening. No change in vision. No ear pain or discharge. No sore throat. CARDIOVASCULAR: +Chest tightness with her headache and anxiety feeling. RESPIRATORY: No cough, wheezing, or hemoptysis. GASTROINTESTINAL: No nausea, vomiting, diarrhea or constipation. GENITOURINARY: No dysuria, frequency, or change in urination. MUSCULOSKELETAL: No joint or muscle swelling or pain. No neck or back pain. SKIN: No rash NEUROLOGIC: No headache, vertigo, loss of consciousness, or change in strength/ sensation. ENDOCRINE: No increased thirst. No abnormal weight change HEMATOLOGIC/LYMPHATIC: No anemia, easy bleeding, or history of blood clots. ALLERGIC/IMMUNOLOGIC: No hives or skin allergy. <Dandre Hamilton - Last Filed: 12/01/16 23:57> *Physical Exam - Vital Signs Last Vital Signs Temp Pulse Resp BP Pulse Ox 97.2 F L 76 18 121/73 100 12/01/16 22:48 12/01/16 22:48 12/01/16 22:48 12/01/16 22:48 12/01/16 22:48 - Physical Exam Comments: 12/01/16 23:22 GENERAL: Awake, alert, and fully oriented, in no acute distress HEAD: No signs of trauma, normocephalic, atraumatic EYES: PERRLA, EOMI, sclera anicteric, conjunctiva clear ENT: Auricles normal inspection, hearing grossly normal, nares patent, oropharynx clear without exudates. Moist mucosa NECK: Normal ROM, supple, no lymphadenopathy, JVD, or masses LUNGS: No distress, speaks full sentences, clear to auscultation bilaterally HEART: Regular rate and rhythm, normal S1 and S2, no murmurs, rubs or gallops, peripheral pulses normal and equal bilaterally. ABDOMEN: Soft, nontender, normoactive bowel sounds. No guarding, no rebound. No masses EXTREMITIES: Normal inspection, Normal range of motion, no edema. No clubbing or cyanosis. NEUROLOGICAL: Cranial nerves II through XII grossly intact. Normal speech, normal gait, no focal sensorimotor deficits SKIN: Warm, Dry, normal turgor, no rashes or lesions noted. <Dandre Hamilton - Last Filed: 12/01/16 23:57> - Vital Signs Last Vital Signs Temp Pulse Resp BP Pulse Ox 97.2 F L 76 18 121/73 100 12/01/16 22:48 12/01/16 22:48 12/01/16 22:48 12/01/16 22:48 12/01/16 22:48 <Yoni Miller - Last Filed: 12/02/16 01:44> ED Treatment Course - LABORATORY CBC & Chemistry Diagram: 12/01/16 23:57 12/01/16 23:57 - ADDITIONAL ORDERS Additional order review: Laboratory Results 12/01/16 12/01/16 23:57 23:57 WBC 6.7 RBC 4.07 Hgb 11.6 Hct 34.7 MCV 85.4 MCH 28.5 MCHC 33.4 RDW 14.0 Plt Count 210 MPV 7.9 Neutrophils % 61.4 Lymphocytes % 29.5 Monocytes % 8.1 Eosinophils % 0.4 Basophils % 0.6 Sodium 143 Potassium 4.3 Chloride 106 Carbon Dioxide 27 Anion Gap 10 BUN 18 D Creatinine 1.2 H Creat Clearance w eGFR 44.95 Random Glucose 95 Calcium 8.7 Total Bilirubin 0.1 L D AST 9 L D ALT 23 D Alkaline Phosphatase 90 D Total Protein 6.4 Albumin 3.2 L 12/01/16 23:57 RBC 4.07 MCV 85.4 MCHC 33.4 RDW 14.0 MPV 7.9 Neutrophils % 61.4 Lymphocytes % 29.5 Monocytes % 8.1 Eosinophils % 0.4 Basophils % 0.6 - Medications Given in the ED: ED Medications Discontinued Medications Generic Name Dose Route Start Last Admin Trade Name Deuce PRN Reason Stop Dose Admin Alprazolam 0.25 mg 12/01/16 23:22 12/01/16 23:34 Xanax - PO 12/01/16 23:23 0.25 mg ONCE ONE Administration <Ynoi Miller - Last Filed: 12/02/16 01:44> Medical Decision Making - Medical Decision Making 12/02/16 00:01 Patient signed over to Dr. Miller for further care. <Dandre Hamilton - Last Filed: 12/01/16 23:57> *DC/Admit/Observation/Transfer <Dandre Hamilton - Last Filed: 12/01/16 23:57> - Discharge Dispostion Admit: No <Yoni Miller - Last Filed: 12/02/16 01:44> Diagnosis at time of Disposition: Anxiety, Panic attack - Discharge Dispostion Disposition: HOME Condition at time of disposition: Improved - Referrals Referrals: Girma Flores MD [Staff Physician] - - Patient Instructions Printed Discharge Instructions: DI for Anxiety -- Adult Additional Instructions: Return to the emergency department immediately with ANY new, persistent or worsening symptoms. You MUST call and follow up with your psychiatrist/therapist within enext 2- 3 days for further evaluation of your symptoms. Results were discussed with you. Please make sure your doctor reviews the results of your emergency evaluation. Print Language: SENEGALESE
--- NOTE | 2016-12-01 23:58 | PDOC ---
Attending Attestation - Resident Resident Name: Dandre Hamilton - ED Attending Attestation I have performed the following: I have examined & evaluated the patient, The case was reviewed & discussed with the resident, I agree w/resident's findings & plan, Exceptions are as noted - HPI HPI: 12/02/16 01:36 66y F hx of hl, anxiety, bipolar d/o, presents with anxiety. The pt sates she was doing well this morning and this evening starte feeling b/l leg tingling, perioral tingling, sob, chest tightness, lasting approx 2 hrs. The pt states this is consistent with prior anxiety attacks. Pt states she was taken off her xanax by her therapist at [facility] 6 weeks ago. Pt denies any exertional cp, sob , diaphoresis, abd pain, n/v. The pt endorsed feeling paralysis of her LE to EMS, but then got up and walked on to the stretcher. denies any weakness currently. on arrival the pt was anxious appearing, but otherwise unremarkable exam labs were obtained due to pts hx of hyponatremia and are essentially normal. pt feeling improved will dc the pt with outpatient management of her anxiety pt will call to schedule apt with her therapist tmorrow. return precautions were discussed I discussed the physical exam findings, ancillary test results and final diagnoses with the patient. I answered all of the patient's questions. The patient was satisfied with the care received and felt comfortable with the discharge plan and treatment plan. The patient will call their primary care physician within 24 hours to arrange follow-up and will return to the Emergency Department with any new, persistent or worsening symptoms. - Physicial Exam PE: 12/02/16 01:40 GENERAL: The patient is awake, alert, and fully oriented, Nontoxic - in no acute distress. HEAD: Normocephalic, atraumatic. EYES: extraocular movements intact, sclera anicteric, conjunctiva clear. ENT: Normal voice, Moist mucous membranes. NECK: Normal range of motion, supple LUNGS: Breath sounds equal, clear to auscultation bilaterally. No wheezes, no rhonchi, no rales. HEART: Regular rate and rhythm, normal S1 and S2 without murmur, rub or gallop. ABDOMEN: Soft, nontender, normoactive bowel sounds. No guarding, no rebound. EXTREMITIES: Normal range of motion, no edema. NEUROLOGICAL: No facial assymetry, Normal speech, PSYCH: anxious appearing SKIN: Warm, Dry, normal turgor, - Medical Decision Making 12/02/16 01:41 see above Heart Score/ECG Review - ECG Impressions Comment:: 12/02/16 01:44 Twelve-lead EKG was performed and reviewed by me. There is normal sinus rhythm with a normal rate. Rate of 64 The axis is normal. The intervals are normal. There is normal R wave progression There are no ST or T wave abnormalities. Impression: Normal twelve-lead EKG
[2016-12-02 00:10] LABS: BASOPHIL 0.6 % (0-2.0); EOSINOPHIL 0.4 % (0-4.5); MCH 28.5 pg (25.7-33.7); MCHC 33.4 g/dl (32.0-36.0); MEAN CELL VOLUME 85.4 fl (80-96); MEAN PLT VOLUME 7.9 fl (7.5-11.1); NEUTROPHILS 61.4 % (42.8-82.8); PLATELET COUNT 210 K/MM3 (134-434); WHITE BLOOD COUNT 6.7 K/mm3 (4.0-10.0)
[2016-12-02 00:34] LABS: ALBUMIN 3.2 g/dl (3.4-5.0); ALK PHOS 90 U/L (45-117); ANION GAP 10 (8-16); BILIRUBIN,TOTAL 0.1 mg/dL (0.2-1.0); CALCIUM 8.7 mg/dL (8.5-10.1); CO2 27 mmol/L (21-32); CREATININE 1.2 mg/dL (0.55-1.02); GLUCOSE,RANDOM 95 mg/dL (74-106); SGOT/AST 9 U/L (15-37); SGPT/ALT 23 U/L (12-78); TOT PROT 6.4 g/dl (6.4-8.2)
--- NOTE | 2016-12-02 10:56 | EKG ---
Test Reason : Blood Pressure : / mmHG Vent. Rate : 064 BPM Atrial Rate : 064 BPM P-R Int : 136 ms QRS Dur : 080 ms QT Int : 430 ms P-R-T Axes : 058 062 073 degrees QTc Int : 443 ms NORMAL SINUS RHYTHM NORMAL ECG WHEN COMPARED WITH ECG OF 09-SEP-2016 23:32, PREMATURE VENTRICULAR COMPLEXES ARE NO LONGER PRESENT VENT. RATE HAS DECREASED Confirmed by FREDDIE BOWLING, DORIS ([id number]) on 12/02/2016 10:56:15 AM Referred By: Confirmed By:DORIS FRAZIER MD
== END 2016-12-02 04:40 | disposition home or self-care (01) ==
LOC: JER 22:29
DX: F41.0 Panic disorder [episodic paroxysmal anxiety] (principal); F41.9 Anxiety disorder, unspecified; F42.9 Obsessive-compulsive disorder, unspecified; I10 Essential (primary) hypertension; E78.00 Pure hypercholesterolemia, unspecified; K21.9 Gastro-esophageal reflux disease without esophagitis
CPT/HCPCS: 36415; 80053; 85025; 93005; 93010; 99282-25

== ENCOUNTER 2018-03-22 21:37 | Observation (INO) | payer OTHER, MEDICARE ==
[2018-03-22 21:48] VITALS: BMI 26.6
[2018-03-22] MEDS ORDERED: FAMOTIDINE 20 MG/50 ML IVPB 20 MG/50 ML MG IVPB ONE ×2 (22:11→22:40)
[2018-03-22] MEDS ORDERED: SODIUM CHLORIDE 0.9% 1000 ML INFUS.BAG IV ONE ×2 (22:11→23:05)
--- NOTE | 2018-03-22 22:25 | PDOC ---
Attending Attestation - HPI HPI: 03/22/18 23:28 The patient is a 67 year old female, accompanied by her PCP Dr. Raul Beckham, has a past medical history of HTN and psychiatric disorder who presents to the ED today complaining of irregular heart rate. The patient reports that she has been trying to wean off of her psychiatric medications for the last 3-4 days. Patient reports having several episodes of vomiting that were NBNB last night, with the inability of PO intake. Patient reports doubling her mertazipine, quetiapine, and hydroxizine to help her sleep. Patient reports having palpitations and shortness of breath. Denies fever or chills. Denies nausea and any other symptoms. <Selena Escudero - Last Filed: 03/22/18 23:28> - Resident Resident Name: Julio Corbin - ED Attending Attestation I have performed the following: I have examined & evaluated the patient, The case was reviewed & discussed with the resident, I agree w/resident's findings & plan, Exceptions are as noted - HPI HPI: 03/22/18 22:24 67-year-old female sent in by her family member Dr. Raul Yuen for altered mental status as, diarrhea and tachycardia History the patient had not been taking her antipsychotic meds for some time, Dr. Raul Yuen gave her her Seroquel and all her other medications today. She is tachycardia in the 130'a, wants to drink apple juice 03/22/18 22:35 - Physicial Exam PE: 03/22/18 22:33 Well-nourished, well-developed 67-year-old female presents fairly anxious. She states that she's been sick all day with diarrhea. Head normocephalic, atraumatic. Neck no JVD. Lungs clear to auscultation. CVS tachycardia Abdomen soft, nontender. Extremities no erythema, no deformity, no edema. Skin warm and dry. Neuro alert and oriented 3, moving all her extremities Psych patient very anxious - Medical Decision Making 03/23/18 02:09 pt p/w tachycardia ,vomiting,diarrhea after trying to wean herself off her seroquel . Dr Raul Beckham saw the pt in the emergency dept and wrote admitting orders 03/23/18 02:12 <Lottie Smith - Last Filed: 03/23/18 02:12> Attestations - Attestations 03/22/18 23:28 Documentation prepared by Selena Escudero, acting as veterinary medical officer for Lottie Smith MD <Selena Escudero - Last Filed: 03/22/18 23:28>
[2018-03-22 22:38] LABS: BASO % 0.6 % (0-2.0); EOS % 0.2 % (0-4.5); HEMATOCRIT 42.6 % (32.4-45.2); HEMOGLOBIN 14.5 GM/dL (10.7-15.3); LYMPH % 22.9 % (8-40); MCHC 33.9 g/dl (32.0-36.0); MEAN CELL VOLUME 88.4 fl (80-96); MEAN PLT VOLUME 9.4 fl (7.5-11.1); MONO % 6.5 % (3.8-10.2); NEUT % 69.8 % (42.8-82.8); PLATELET COUNT 234 K/MM3 (134-434); RBC 4.82 M/mm3 (3.60-5.2); RDW 14.4 % (11.6-15.6); WHITE BLOOD COUNT 7.4 K/mm3 (4.0-10.0)
--- NOTE | 2018-03-22 22:50 | PDOC ---
History of Present Illness - General Chief Complaint: Weakness Stated Complaint: SICK Time Seen by Provider: 03/22/18 21:40 History Source: Family Exam Limitations: Clinical Condition - History of Present Illness Initial Comments: 03/22/18 22:48 The patient is a 67F with a PMH of HTN and psychiatric disorder who presents to the ER for irregular heart rate. The patient is accompanied by her family and PCP, Dr. Raul Beckham. The patient states that she has recently been trying to wean off of her psychiatric medications for the last 3-4 days. She states that throughout last night, she began to vomit NBNB. She states that she vomited "many, many times". She was unable to tolerate PO. She states that she was trying to sleep so she doubled her mertazipine, quetiapine, and hydroxizine, to help herself feel better and sleep. She denies any fever, chills, nausea, CP but admits to palpitations and SOB. Past History - Past Medical History Allergies/Adverse Reactions: Allergies Allergy/AdvReac Type Severity Reaction Status Date / Time amoxicillin trihydrate Allergy Intermediate Difficulty Verified 03/22/18 21:46 [From Augmentin] Breathing potassium clavulanate Allergy Intermediate Difficulty Verified 03/22/18 21:46 [From Augmentin] Breathing clindamycin Allergy Verified 03/22/18 21:46 Sulfa (Sulfonamide Allergy Verified 03/22/18 21:46 Antibiotics) Home Medications: Ambulatory Orders Atorvastatin Ca [Lipitor] 10 mg PO HS 08/14/15 Polyethylene Glycol 3350 [Miralax 119 gm Btl -] 17 gm PO DAILY bottle 09/07/15 Acetaminophen [Tylenol .Regular Strength -] 650 mg PO Q4H PRN #0 tablet Mirtazapine [Remeron -] 45 mg PO HS #30 tablet 03/09/16 Ondansetron [Zofran -] 4 mg PO TID PRN #21 tablet 03/09/16 Quetiapine Fumarate [Seroquel -] 400 mg PO HS #30 tablet 03/09/16 Atenolol [Tenormin -] 50 mg PO DAILY #30 tablet 03/28/16 Nicotine Patch [Nicoderm Patch -] 14 mg TD DAILY #30 patch 09/15/16 clonazePAM [Klonopin -] 1 mg PO BID #60 tablet MDD 2 09/15/16 Alprazolam [Xanax] 0.25 mg PO Q8H PRN #8 tablet MDD 4 12/02/16 Anemia: No COPD: No GI Disorders: (acid reflux) HTN: Yes Hypercholesterolemia: Yes Psychiatric Problems: Yes (OCD) - Surgical History Abdominal Surgery: Yes Cholecystectomy: Yes - Immunization History Immunization Up to Date: Yes - Suicide/Smoking/Psychosocial Hx Smoking History: Current every day smoker Have you smoked in the past 12 months: Yes Number of Cigarettes Smoked Daily: 30 Cigars Per Day: 0 Information on smoking cessation initiated: No 'Breaking Loose' booklet given: 02/16/16 Hx Alcohol Use: No Drug/Substance Use Hx: No Substance Use Type: None Hx Substance Use Treatment: No Review of Systems - Review of Systems Able to Perform ROS?: Yes Comments:: 03/22/18 23:07 GENERAL/CONSTITUTIONAL: No fever or chills. No weakness. HEAD, EYES, EARS, NOSE AND THROAT: No change in vision. No ear pain or discharge. No sore throat. CARDIOVASCULAR: Positive for palpitations. No chest pain or lightheadedness. RESPIRATORY: Positive for SOB. No cough, wheezing, or hemoptysis. GASTROINTESTINAL: No nausea, vomiting, diarrhea, constipation, or abdominal pain. GENITOURINARY: No dysuria, frequency, hematuria, or change in urination. MUSCULOSKELETAL: No joint or muscle swelling or pain. No neck or back pain. SKIN: No rash or lesions. NEUROLOGIC: No headache, numbness, tingling, focal weakness, loss of consciousness, or change in strength/sensation. Is the patient limited Slovenian proficient: No *Physical Exam - Vital Signs Last Vital Signs Temp Pulse Resp BP Pulse Ox 133 H 20 119/70 99 03/22/18 21:46 03/22/18 21:46 03/22/18 21:46 03/22/18 21:46 - Physical Exam Comments: 03/22/18 23:08 GENERAL: Well developed, well nourished. Sleepy but arousable. No acute distress. HEENT: Normocephalic, atraumatic. Hearing grossly normal. Moist mucous membranes. PERRLA, EOMI. No conjunctival pallor. Sclera are non-icteric. NECK: Supple. Full ROM. No JVD. CARDIOVASCULAR: Tachycardic with regular rhythm. No murmurs, rubs, or gallops. PULMONARY: No evidence of respiratory distress. Lungs clear to auscultation bilaterally. No wheezing, rales or rhonchi. ABDOMINAL: Soft. Non-tender. Non-distended. No rebound or guarding. GENITOURINARY: No CVA tenderness bilaterally. MUSCULOSKELETAL: Normal range of motion at all joints. No bony deformities or tenderness. EXTREMITIES: No cyanosis. No clubbing. No edema. No calf tenderness or swelling. SKIN: Warm and dry. Normal capillary refill. No rashes. No jaundice. NEUROLOGICAL: Alert, awake, appropriate. Cranial nerves 2-12 grossly intact. Normal speech. G PSYCHIATRIC: Cooperative. Sleepy but arousable, slightly lethargic. Appropriate mood and affect. Moderate Sedation - Procedure Monitoring Vital Signs: Procedure Monitoring Vital Signs Temperature Pulse Rate 133 H 03/22/18 21:46 Respiratory Rate 20 03/22/18 21:46 Blood Pressure 119/70 03/22/18 21:46 O2 Sat by Pulse Oximetry (%) 99 03/22/18 21:46 Heart Score/ECG Review #1 ECG reviewed & interpreted by me at: 23:12 General ECG Interpretation: Normal Intervals Compared to previous ECG there are: Changes noted 03/22/18 23:12 Sinus tach vent rate 130 [place] 134 QRS 76 QTc 483 Sinus tach with APCs and and PVCs noted Changed from prior (prior was NSR) [place] intervals varying ED Treatment Course - LABORATORY CBC & Chemistry Diagram: 03/22/18 22:02 03/22/18 22:02 - ADDITIONAL ORDERS Additional order review: Laboratory Results 03/22/18 03/22/18 03/22/18 22:02 22:02 22:02 Salicylates Cancelled Acetaminophen Cancelled Alcohol, Quantitative Cancelled 03/22/18 22:02 RBC 4.82 MCV 88.4 MCHC 33.9 RDW 14.4 MPV 9.4 D Neutrophils % 69.8 Lymphocytes % 22.9 D Monocytes % 6.5 Eosinophils % 0.2 Basophils % 0.6 Medical Decision Making - Medical Decision Making 03/22/18 23:13 The patient is a 67F with a PMH of psychiatric disorder and HTN who presents to the ER after vomiting and taking more of her prescribed psych medications than normal. Concern for cardiac arrhythmia especially in the presence of multiple antipsychotics. Pt currently being hydrated with labs sent including EtOH, ASA, acetaminophen, CBC, CMP. Will order CXR to evaluate for sensation of SOB. Giving pepcid and lopressor for heartburn and for tachycardia, respectively. Will monitor closely. *DC/Admit/Observation/Transfer Diagnosis at time of Disposition: Tachycardia Psychosis Qualifiers: Psychosis type: unspecified psychosis type Qualified Code(s): F29 - Unspecified psychosis not due to a substance or known physiological condition - Discharge Dispostion Condition at time of disposition: Guarded Decision to Admit order: Yes - Referrals Referrals: Raul Beckham MD [Primary Care Provider] - - Patient Instructions - Post Discharge Activity
[2018-03-22] MEDS ORDERED: METOPROLOL TARTRATE 5 MG/5 ML VIAL IVPUSH ONE (23:05)
--- NOTE | 2018-03-22 23:19 | HP ---
Admitting History and Physical - Admission Chief Complaint: pt weaning self leesrer dose of sorequel as per psche instrutions. ? 3 days developed diarea n/v w abd pain and crying uncontrolably. ? withdrawal vs gastroenteritis. given her meds at night got sleepy like usual w sertoqual mirtazapine. vistoral also History Source: Patient, Family Member - Past Medical History TRAINING AND DEVELOPMENT REP: Yes: Seizure Cardiovascular: Yes: HTN, Hyperlipdemia, Other (pvcs on ekg) Gastrointestinal: Yes: Other (diarrea and abd pain) Infectious Disease: Yes: MRSA (right elbow) Psych: Yes: Anxiety, Bipolar, Other (ocd) - Past Surgical History Past Surgical History: Yes: Appendectomy, Tonsillectomy - Smoking History Smoking history: Current every day smoker Have you smoked in the past 12 months: Yes Aproximately how many cigarettes per day: 60 - Alcohol/Substance Use Hx Alcohol Use: No History of Substance Use: reports: None - Social History Usual Living Arrangement: Yes: Alone ADL: Independent History of Recent Travel: No Home Medications - Allergies Allergies/Adverse Reactions: Allergies Allergy/AdvReac Type Severity Reaction Status Date / Time amoxicillin trihydrate Allergy Intermediate Difficulty Verified 03/22/18 21:46 [From Augmentin] Breathing potassium clavulanate Allergy Intermediate Difficulty Verified 03/22/18 21:46 [From Augmentin] Breathing clindamycin Allergy Verified 03/22/18 21:46 Sulfa (Sulfonamide Allergy Verified 03/22/18 21:46 Antibiotics) - Home Medications Home Medications: Ambulatory Orders Atorvastatin Ca [Lipitor] 10 mg PO HS 08/14/15 Polyethylene Glycol 3350 [Miralax 119 gm Btl -] 17 gm PO DAILY bottle 09/07/15 Acetaminophen [Tylenol .Regular Strength -] 650 mg PO Q4H PRN #0 tablet Mirtazapine [Remeron -] 45 mg PO HS #30 tablet 03/09/16 Ondansetron [Zofran -] 4 mg PO TID PRN #21 tablet 03/09/16 Quetiapine Fumarate [Seroquel -] 400 mg PO HS #30 tablet 03/09/16 Atenolol [Tenormin -] 50 mg PO DAILY #30 tablet 03/28/16 Nicotine Patch [Nicoderm Patch -] 14 mg TD DAILY #30 patch 09/15/16 clonazePAM [Klonopin -] 1 mg PO BID #60 tablet MDD 2 09/15/16 Alprazolam [Xanax] 0.25 mg PO Q8H PRN #8 tablet MDD 4 12/02/16 Family Disease History - Family Disease History Family History: Unremarkable Review of Systems - Review of Systems Constitutional: reports: No Symptoms Eyes: reports: No Symptoms HENT: reports: No Symptoms Neck: reports: No Symptoms Cardiovascular: reports: No Symptoms Respiratory: reports: SOB on Exertion Gastrointestinal: reports: Abdominal Pain, Diarrhea Breasts: reports: No Symptoms Reported Musculoskeletal: reports: Back Pain Integumentary: reports: No Symptoms Neurological: reports: No Symptoms Endocrine: reports: No Symptoms Hematology/Lymphatic: reports: No Symptoms Psychiatric: reports: Anxiety, Depression Physical Examination Vital Signs: Vital Signs Temperature Pulse Rate 133 H 03/22/18 21:46 Respiratory Rate 20 03/22/18 21:46 Blood Pressure 119/70 03/22/18 21:46 O2 Sat by Pulse Oximetry (%) 99 03/22/18 21:46 Labs: CBC, BMP 03/22/18 22:02 Problem List - Problems (1) Gastroenteritis Code(s): K52.9 - NONINFECTIVE GASTROENTERITIS AND COLITIS, UNSPECIFIED Assessment/Plan iv hydration cont all meds in am ? flagl iv chk labs in am low na diet seizure preqations
[2018-03-22 23:20] LABS: ANION GAP 13 MMOL/L (8-16); BLOOD UREA NITROGEN 16 mg/dL (7-18); CALCIUM 9.8 mg/dL (8.5-10.1); CHLORIDE 100 mmol/L (98-107); CO2 23 mmol/L (21-32); CREATININE 1.5 mg/dL (0.55-1.3); GLUCOSE,RANDOM 250 mg/dL (74-106); POTASSIUM 3.8 mmol/L (3.5-5.1); SODIUM 136 mmol/L (136-145); TOT PROT 7.3 g/dl (6.4-8.2)
[2018-03-22 23:21] LABS: ALBUMIN 3.7 g/dl (3.4-5.0); ALK PHOS 68 U/L (45-117); BILIRUBIN,TOTAL 0.7 mg/dL (0.2-1); SGOT/AST 26 U/L (15-37); SGPT/ALT 17 U/L (13-61)
[2018-03-22 23:28] LABS: ACETONE SERUM NEGATIVE (NEGATIVE)
[2018-03-22] MEDS ORDERED: METOPROLOL TARTRATE 5 MG/5 ML VIAL ONE (23:37)
[2018-03-23] MEDS: SODIUM CHLORIDE 1,000 ML IV SCH ×2 (01:30→17:53)
[2018-03-23] MEDS: QUEtiapine FUMARATE 200 MG TABLET PO SCH ×2 (01:31→21:57)
[2018-03-23] MEDS: hydrOXYzine HCL 25 MG TABLET (FP) PO SCH ×2 (01:32→22:00)
[2018-03-23] MEDS: metoPROLOL SUCCINATE 25 MG TAB.SR.24H (FP) PO SCH ×2 (01:33→10:00)
[2018-03-23] MEDS ORDERED: DOCUSATE SODIUM 100 MG CAPSULE (FP) PO SCH (06:00)
[2018-03-23] MEDS ORDERED: POLYETHYLENE GLYCOL 3350 119 GM BTL PO SCH (10:00)
[2018-03-23] MEDS ORDERED: METOPROLOL TARTRATE 25 MG TABLET (FP) ONE (10:14)
[2018-03-23] MEDS ORDERED: HEPARIN NA (PORCINE) 5,000 UNITS/ML 1ML VIAL IVPUSH PRN ×2 (10:34)
[2018-03-23] MEDS ORDERED: HEPARIN SOD,PORK IN 0.45% NACL 25,000 UNIT/500 ML INFUS.BAG IVPB SCH (10:45)
[2018-03-23] MEDS ORDERED: NITROGLYCERIN SUBLINGUAL 1/150 0.4 MG TAB SL ONE (11:05)
[2018-03-23] MEDS ORDERED: HEPARIN INFUSION - 25,000 UNITS/500 ML INFUS.BAG IVPB ONE (11:16)
--- NOTE | 2018-03-23 11:43 | CON.PULM ---
Consult Consult Specialty:: PULM/CCM Referred by:: FRIDA Reason for Consultation:: SOB - History of Present Illness Chief Complaint: Nausea and vomiting History of Present Illness: 67 F, HTN, bipolar disorder, Sleep onset and Sleep maintenance most likely due to her Bipolar D/O. Apparently she has been trying to wean herself off her Psych meds for the past 4 days. Developed copious diarrhea and vomiting (NBNB) yesterday. Due to imsomnia she apparently took double the doses of her mertazipine, quetiapine, and hydroxizine. No overt SOB but reports some intermittent chest discomfort on deep inspiration. She does report some non-specific left anterior chest wall discomfort. CXR: Expiratory film. No acute process. 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 Cardio/Vascular: Yes: HTN, Hyperlipdemia, Other (pvcs on ekg) Gastrointestinal: Yes: Other (diarrea and abd pain) Infectious Disease: Yes: MRSA (right elbow) Psych: Yes: Anxiety, Bipolar, Other (ocd) - Past Surgical History Past Surgical History: Yes: Appendectomy, Tonsillectomy - Alcohol/Substance Use Hx Alcohol Use: No History of Substance Use: reports: None - Smoking History Smoking history: Current every day smoker Have you smoked in the past 12 months: Yes Aproximately how many cigarettes per day: 60 - Social History Usual Living Arrangement: Alone ADL: Independent History of Recent Travel: No Home Medications - Allergies Allergies/Adverse Reactions: Allergies Allergy/AdvReac Type Severity Reaction Status Date / Time amoxicillin trihydrate Allergy Intermediate Difficulty Verified 03/22/18 21:46 [From Augmentin] Breathing potassium clavulanate Allergy Intermediate Difficulty Verified 03/22/18 21:46 [From Augmentin] Breathing clindamycin Allergy Verified 03/22/18 21:46 Sulfa (Sulfonamide Allergy Verified 03/22/18 21:46 Antibiotics) - Home Medications Home Medications: Ambulatory Orders Atorvastatin Ca [Lipitor] 20 mg PO HS 08/14/15 Aspirin [ASA -] 81 mg PO DAILY 03/23/18 Docusate Sodium 100 mg PO DAILY 03/23/18 Hydroxyzine HCl 50 mg PO DAILY 03/23/18 Metoprolol Succinate 50 mg PO DAILY 03/23/18 Mirtazapine [Remeron -] 30 mg PO HS 03/23/18 Omeprazole 20 mg PO BID PRN 03/23/18 Ondansetron [Zofran -] 4 mg PO DAILY PRN 03/23/18 Quetiapine Fumarate [Seroquel -] 200 mg PO BID 03/23/18 Review of Systems - Review of Systems Constitutional: reports: Lethargy, Malaise. denies: Chills, Fever, Night Sweats , Unintentional Wgt. Loss, Weakness Eyes: reports: No Symptoms HENT: reports: No Symptoms Neck: reports: No Symptoms Cardiovascular: reports: Chest Pain. denies: Edema, Palpitations, Shortness of Breath Respiratory: reports: Cough, Snoring. denies: Hemoptysis, Orthopnea, PND, SOB, SOB on Exertion, Wheezing Gastrointestinal: reports: Diarrhea, Nausea, Vomiting. denies: Rectal Bleeding , Vomiting Blood Genitourinary: reports: No Symptoms Breasts: reports: No Symptoms Reported Musculoskeletal: reports: No Symptoms Integumentary: reports: No Symptoms Neurological: reports: No Symptoms Endocrine: reports: No Symptoms Hematology/Lymphatic: reports: No Symptoms Psychiatric: reports: No Symptoms Physical Exam Vital Sings: Vital Signs Temperature 97.7 F 03/23/18 07:00 Pulse Rate 107 H 03/23/18 07:00 Respiratory Rate 18 03/23/18 07:00 Blood Pressure 148/82 03/23/18 07:00 O2 Sat by Pulse Oximetry (%) 98 03/23/18 07:00 Constitutional: Yes: Obese Eyes: Yes: Conjunctiva Clear, EOM Intact HENT: Yes: Atraumatic, Normocephalic Neck: Yes: Supple, Trachea Midline Cardiovascular: Yes: Tachycardia Respiratory: Yes: Diminished. No: Accessory Muscle Use, Rales, Rhonchi, SOB, SOB on Exertion, Stridor, Tachypnea, Wheezes ...Inspection: Yes: WNL ...Clubbing: No Gastrointestinal: Yes: Normal Bowel Sounds, Soft, Abdomen, Obese. No: Melena, Palpable Mass, Pulsatile Mass, Tenderness, Rebound Renal/: Yes: WNL Musculoskeletal: Yes: WNL Extremities: Yes: WNL Edema: No Peripheral Pulses WNL: Yes Integumentary: Yes: WNL Neurological: Yes: Alert, Oriented ...Motor Strength: WNL Psychiatric: Yes: Alert, Oriented Labs: CBC, BMP 03/22/18 22:02 03/22/18 22:02 Imaging - Results Chest X-ray: Report Reviewed, Image Reviewed Assessment/Plan Sleep onset and Sleep Maintenance Insomnia most likely due to her Bipolar D/O HTN Bradycardia Should R/O OSAS HPL Seizure D/O Would consider a Psych consult Remeron has some success in these situations, but CBT is the best [place] [facility] strategy IVF Follow renal function Telemetry monitoring for (+) Troponin Cardiology evaluation noted Will follow Thank you. Dr Silva
--- NOTE | 2018-03-23 11:45 | CON.CARD ---
Consult Consult Specialty:: Cardiology Referred by:: Dr. Beckham Reason for Consultation:: elevated troponin - History of Present Illness Chief Complaint: nausea, vomiting, abd pain, chest pain, sob, palpitations History of Present Illness: 67 year old woman with a history of HTN, HLD, bipolar disorder, anxiety prior admissions with AMS and possible seizures, recently weaning down on seroquel admitted with c/o 3 day history of persistent nausea, vomiting, abd pain and 1 day history chest pain. Noted to have a mildly uptrending troponin on admission from .02 to .78. Pt was seen and examined in the ER in nad, sleeping prior to exam. when awoken she admits to L axilla chest pain radiating up to front of L chest in addition to abd pain. states the chest pain is at rest, worse with deep inspiration.. No lightheadedness, dizziness. No pnd, orthopnea, or LE edema. 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 Cardio/Vascular: Yes: HTN, Hyperlipdemia, Other (pvcs on ekg) Gastrointestinal: Yes: Other (diarrea and abd pain) Infectious Disease: Yes: MRSA (right elbow) Psych: Yes: Anxiety, Bipolar, Other (ocd) - Past Surgical History Past Surgical History: Yes: Appendectomy, Tonsillectomy - Alcohol/Substance Use Hx Alcohol Use: No History of Substance Use: reports: None - Smoking History Smoking history: Current every day smoker Have you smoked in the past 12 months: Yes Aproximately how many cigarettes per day: 60 - Social History Usual Living Arrangement: Alone ADL: Independent History of Recent Travel: No Home Medications - Allergies Allergies/Adverse Reactions: Allergies Allergy/AdvReac Type Severity Reaction Status Date / Time amoxicillin trihydrate Allergy Intermediate Difficulty Verified 03/22/18 21:46 [From Augmentin] Breathing potassium clavulanate Allergy Intermediate Difficulty Verified 03/22/18 21:46 [From Augmentin] Breathing clindamycin Allergy Verified 03/22/18 21:46 Sulfa (Sulfonamide Allergy Verified 03/22/18 21:46 Antibiotics) - Home Medications Home Medications: Ambulatory Orders Atorvastatin Ca [Lipitor] 20 mg PO HS 06/13/16 Aspirin [ASA -] 81 mg PO DAILY 03/23/18 Docusate Sodium 100 mg PO DAILY 03/23/18 Hydroxyzine HCl 50 mg PO DAILY 03/23/18 Metoprolol Succinate 50 mg PO DAILY 03/23/18 Mirtazapine [Remeron -] 30 mg PO HS 03/23/18 Omeprazole 20 mg PO BID PRN 03/23/18 Ondansetron [Zofran -] 4 mg PO DAILY PRN 03/23/18 Quetiapine Fumarate [Seroquel -] 200 mg PO BID 03/23/18 Family Disease History - Family Disease History Family History: Denies Review of Systems - Review of Systems Constitutional: reports: Malaise. denies: No Symptoms, Chills, Diaphoresis, Fever, Lethargy, Loss of Appetite, Night Sweats, Unintentional Wgt. Loss, Weakness, Other Eyes: denies: No Symptoms, Blind Spots, Blurred Vision, Double Vision, Eye Pain , Floaters, Photophobia, Recent Change in Vision, Other HENT: denies: No Symptoms, Difficult Swallowing, Ear Discharge, Ear Pain, Epistaxis, Gingival Bleeding, Hearing Loss, Mouth Swelling, Nasal Congestion, Ocular Prosthesis, Throat Pain, Toothache, Ringing in Ears, Other Neck: denies: No Symptoms, Decreased ROM, Lumps, Pain on Movement, Stiffness, Swollen Glands, Tenderness, Other Cardiovascular: reports: Chest Pain, Shortness of Breath. denies: No Symptoms, Edema, Palpitations, Other Respiratory: reports: SOB. denies: No Symptoms, Cough, Exercise Intolerance, Hemoptysis, Orthopnea, PND, Snoring, SOB on Exertion, Wheezing, Other Gastrointestinal: reports: Abdominal Pain, Nausea, Vomiting. denies: No Symptoms, Bloating, Constipation, Diarrhea, Dysphagia, Indigestion, Melena, Rectal Bleeding, Vomiting Blood, Other Breasts: denies: No Symptoms Reported, See HPI, Breast Implants, Discharge from Nipple, Lumps, Pain, Skin Changes, Other Musculoskeletal: denies: No Symptoms, Back Pain, Crepitus, Decreased ROM, Extremity Pain, Joint Pain, Joint Swelling, Muscle Pain, Muscle Cramps, Muscle Weakness, Other Integumentary: denies: No Symptoms, Blister, Bruising, Change in Color, Eczema, Erythema, Incision, Lesions, Lump, Pallor, Pruritis, Rash, Wound, Other Neurological: denies: No Symptoms, Change in LOC, Change in Speech, Confusion, Dizziness, Headache, Incoordination, Numbness, Parasthesia, Pre-Existing Deficit , Seizure, Syncope, Tremors, Unsteady Gait, Weakness, Other Endocrine: denies: No Symptoms, Excessive Sweating, Flushing, Increased Hunger, Increased Thirst, Intolerance to Cold, Intolerance to Heat, Unexplained Weight Gain, Unexplained Weight Loss, Other Hematology/Lymphatic: denies: No Symptoms, Easily Bruised, Excessive Bleeding, Swollen Glands, Other Psychiatric: denies: No Symptoms, Altered Sleep Pattern, Anxiety, Depression, Hallucinations, Panic, Paranoia, Suicidal, Other - Risk Factors Known Risk Factors: Yes: Hypercholesterolemia, Hypertension Vital Signs: Vital Signs Temperature 97.7 F 03/23/18 07:00 Pulse Rate 107 H 03/23/18 07:00 Respiratory Rate 18 03/23/18 07:00 Blood Pressure 148/82 03/23/18 07:00 O2 Sat by Pulse Oximetry (%) 98 03/23/18 07:00 Constitutional: Yes: No Distress, Calm Eyes: Yes: Conjunctiva Clear, EOM Intact, PERRL HENT: Yes: Atraumatic, Normocephalic Neck: Yes: Supple, Trachea Midline Respiratory: Yes: Regular, CTA Bilaterally. No: Rales, Rhonchi, SOB, Wheezes Gastrointestinal: Yes: Normal Bowel Sounds, Soft. No: Distention, Tenderness Cardiovascular: Yes: Regular Rate and Rhythm. No: Bradycardia, Tachycardia, Pulse Irregular, Gallop, Rub, Varicosities JVD: No Carotid Bruit: No PMI: Non-Displaced Heart Sounds: Yes: S1, S2. No: Split S2, S3, S4, Clicks, Gallop, Rub, Bruit Murmur: No: Systolic Murmur Musculoskeletal: Yes: WNL Extremities: Yes: WNL Edema: No Peripheral Pulses WNL: Yes Peripheral Pulses: 2+ Left Doralis Pedis, 2+ Right Dorsalis Pedis Integumentary: Yes: WNL Neurological: Yes: Alert, Oriented Psychiatric: Yes: Alert - Other Data Labs, Other Data: CBC, BMP 03/22/18 22:02 03/22/18 22:02 Troponin, BNP 03/22/18 03/23/18 22:02 08:42 Troponin I 0.02 0.78 H* Troponin, BNP 03/22/18 03/23/18 22:02 08:42 Troponin I 0.02 0.78 H* ekg-nsr with sinus arrhythmia 82bpm, pvc otherwise normal ecg Echo: Report Reviewed Imaging - Results Chest X-ray: Report Reviewed, Image Reviewed EKG: Report Reviewed, Image Reviewed Other: Report Reviewed, Image Reviewed Assessment/Plan 67 year old woman with a history of HTN, HLD, bipolar disorder, anxiety prior admissions with AMS and possible seizures, recently weaning down on seroquel admitted with c/o 3 day history of persistent nausea, vomiting, abd pain and 1 day history chest pain. Noted to have a mildly uptrending troponin on admission from .02 to .78. Pt was seen and examined in the ER in nad, sleeping prior to exam. when awoken she admits to L axilla chest pain radiating up to front of L chest in addition to abd pain. states the chest pain is at rest, worse with deep inspiration.. No lightheadedness, dizziness. No pnd, orthopnea, or LE edema. Echo 03/2016 showed normal LV systolic function, mild valvular abnormalities, mild to mod PAH Elevated troponin -unlikely ACS, CK level normal and downtrending -troponin did uptrend -currently comfortable -no ischemia on ekg -resume home ASA 81mg daily and Lipitor -cont Metoprolol -pt started on heparin gtt, continue until establish downtrending troponin -trend serial cardiac enzymes and serial ekgs -check echo to re-evaluate LV function. -being treated for withdrawal from anti-psychotics vs gastroenteritis -to be considered for ischemic evaluation when improved
--- NOTE | 2018-03-23 12:08 | EKG ---
Test Reason : Blood Pressure : / mmHG Vent. Rate : 132 BPM Atrial Rate : 132 BPM P-R Int : 134 ms QRS Dur : 076 ms QT Int : 326 ms P-R-T Axes : 069 006 060 degrees QTc Int : 483 ms SINUS TACHYCARDIA WITH PREMATURE SUPRAVENTRICULAR COMPLEXES AND WITH OCCASIONAL PREMATURE VENTRICULAR COMPLEXES POSSIBLE LEFT ATRIAL ENLARGEMENT ABNORMAL ECG WHEN COMPARED WITH ECG OF 02-DEC-2016 01:39, PREMATURE VENTRICULAR COMPLEXES ARE NOW PRESENT PREMATURE SUPRAVENTRICULAR COMPLEXES ARE NOW PRESENT VENT. RATE HAS INCREASED BY 68 BPM Confirmed by DORIS FRAZIER MD ([id number]) on 03/23/2018 12:07:53 PM Referred By: Confirmed By:DORIS FRAZIER MD
[2018-03-23 12:12] LABS: HEMATOCRIT 39.2 % (32.4-45.2); HEMOGLOBIN 13.4 GM/dL (10.7-15.3); MCH 30.3 pg (25.7-33.7); MCHC 34.2 g/dl (32.0-36.0); MEAN CELL VOLUME 88.7 fl (80-96); MEAN PLT VOLUME 8.9 fl (7.5-11.1); PLATELET COUNT 194 K/MM3 (134-434); RBC 4.42 M/mm3 (3.60-5.2); RDW 14.7 % (11.6-15.6); WHITE BLOOD COUNT 6.3 K/mm3 (4.0-10.0)
--- NOTE | 2018-03-23 12:18 | EKG ---
Test Reason : Blood Pressure : / mmHG Vent. Rate : 082 BPM Atrial Rate : 082 BPM P-R Int : 138 ms QRS Dur : 080 ms QT Int : 380 ms P-R-T Axes : 065 039 064 degrees QTc Int : 443 ms SINUS RHYTHM WITH MARKED SINUS ARRHYTHMIA WITH OCCASIONAL PREMATURE VENTRICULAR COMPLEXES OTHERWISE NORMAL ECG WHEN COMPARED WITH ECG OF 22-MAR-2018 21:47, PREMATURE SUPRAVENTRICULAR COMPLEXES ARE NO LONGER PRESENT VENT. RATE HAS DECREASED BY [address] VARIATIONS Confirmed by DORIS FRAZIER MD ([id number]) on 03/23/2018 12:17:41 PM Referred By: Tiffany NASCIMENTO Confirmed By:DORIS FRAZIER MD
[2018-03-23 12:25] LABS: INR 1.03 (0.83-1.09); PROTHROMBIN TIME (PATIENT) 12.1 SEC (9.7-13.0)
[2018-03-23 12:28] LABS: ACTIVATED PTT 29.7 SECONDS (25.2-36.5)
--- NOTE | 2018-03-23 14:26 | PN ---
Progress Note, Physician History of Present Illness: `pt feels better no abd pain no diarrea syable mood po ok - Current Medication List Current Medications: Active Medications Heparin Sodium (Porcine) (Heparin -) 1,000 unit IVPUSH PRN PRN PRN Reason: Heparin Heparin Sodium (Porcine) (Heparin -) 5,000 unit IVPUSH PRN PRN PRN Reason: Heparin Hydroxyzine HCl (Atarax -) 25 mg PO HS [facility] [place] Last Admin: 03/23/18 01:32 Dose: Not Given Sodium Chloride (Normal Saline -) 1,000 mls @ 100 mls/hr IV ASDIR [facility] Last Admin: 03/23/18 01:30 Dose: 100 mls/hr HEPARIN SOD,PORK IN 0.45% NACL (Heparin-1/2ns 25,000 Units/500) 25,000 unit in 500 mls @ 16 mls/hr IVPB TITR [facility]; Protocol Last Admin: 03/23/18 11:45 Dose: 800 units/hr, 16 mls/hr Metoprolol Succinate (Toprol Xl -) 25 mg PO DAILY [facility] Last Admin: 03/23/18 10:00 Dose: 25 mg Mirtazapine (Remeron -) 45 mg PO [facility] Nitroglycerin (Nitrostat -) 0.4 mg SL ONCE ONE Stop: 03/23/18 11:06 Quetiapine Fumarate (Seroquel -) 400 mg PO [facility] Last Admin: 03/23/18 01:31 Dose: Not Given - Objective Vital Signs: Vital Signs Temperature 97.7 F 03/23/18 07:00 Pulse Rate 107 H 03/23/18 07:00 Respiratory Rate 18 03/23/18 07:00 Blood Pressure 148/82 03/23/18 07:00 O2 Sat by Pulse Oximetry (%) 98 03/23/18 07:00 Constitutional: Yes: Well Nourished, No Distress Eyes: Yes: WNL HENT: Yes: WNL Neck: Yes: WNL Cardiovascular: Yes: WNL Respiratory: Yes: WNL Gastrointestinal: Yes: WNL ...Rectal Exam: Yes: Deferred Genitourinary: Yes: WNL Breast(s): Yes: WNL Musculoskeletal: Yes: WNL Extremities: Yes: WNL Edema: No Edema: RLE: Trace Peripheral Pulses WNL: Yes Integumentary: Yes: WNL Neurological: Yes: WNL ...Motor Strength: WNL Psychiatric: Yes: Oriented Labs: CBC, BMP 03/23/18 12:00 03/22/18 22:02 INR, PTT INR 1.03 (0.83-1.09) 03/23/18 12:00 Problem List - Problems (1) Gastroenteritis Code(s): K52.9 - NONINFECTIVE GASTROENTERITIS AND COLITIS, UNSPECIFIED Assessment/Plan tni trending down ? nafisa ramirez when stable cont heparin imperative to gives meds hs to keep her stable mentally chk tni labs
[2018-03-23] MEDS ORDERED: NITROGLYCERIN SUBLINGUAL 1/150 0.4 MG TAB ONE (15:27)
--- NOTE | 2018-03-23 16:04 | ECHO ---
Name: KARON ARANDA Exam:Adult Echocardiogram Study Date: 03/23/2018 02:07 PM Age: 67 yrs Reason For Study: CHEST PAIN ELEVATED TROPONIN Height: 67 in Weight: 170 lb BSA: 1.9 m2 MMode/2D Measurements & Calculations IVSd: 0.85 cm Ao root diam: 2.7 cm LVIDd: 4.3 cm LA dimension: 3.4 cm LVIDs: 2.8 cm LVPWd: 0.81 cm EDV(Teich): 84.7 ml ESV(Teich): 29.4 ml Doppler Measurements & Calculations MV E max will: 66.3 cm/sec Med Peak E' Will: 9.5 cm/sec MV A max will: 99.1 cm/sec Med E/e': 7.0 MV E/A: 0.67 Lat Peak E' Will: 9.7 cm/sec MV dec time: 0.19 sec Lat E/e': 6.8 Procedure A complete two-dimensional transthoracic echocardiogram was performed (2D, M-mode, Doppler and color flow Doppler). Left Ventricle The left ventricle is normal in size. Left ventricular systolic function is normal. Ejection Fraction = 60- 65%. No regional wall motion abnormalities noted. Right Ventricle The right ventricle is normal size. The right ventricular systolic function is normal. Atria The left atrial size is normal. Right atrial size is normal. Mitral Valve There is mild mitral annular calcification. There is no mitral regurgitation noted. Tricuspid Valve The tricuspid valve is normal in structure and function. No tricuspid regurgitation. Aortic Valve There is mild aortic sclerosis.;. No aortic regurgitation is present. Pulmonic Valve The pulmonic valve is not well visualized. Great Vessels The aortic root is normal size. Pericardium/Pleura There is no pericardial effusion. Interpretation Summary The left ventricle is normal in size. Left ventricular systolic function is normal. No regional wall motion abnormalities noted. Ejection Fraction = 60-65%. The right ventricular systolic function is normal. The left atrial size is normal. Right atrial size is normal. There is mild mitral annular calcification. There is mild aortic sclerosis. No significant valvular regurgitations There is no pericardial effusion. Previous study is not available for comparison Mukul Majano MD 03/23/2018 04:04 PM
[2018-03-23] MEDS ORDERED: PT OWN MED DRAWER 7, Y5N ONE (21:13)
[2018-03-23] MEDS ORDERED: ATORVASTATIN CA 10 MG TABLET (FP) PO SCH (22:00)
[2018-03-23] MEDS ORDERED: MIRTAZAPINE 15 MG TABLET (FP) PO SCH (22:00)
[2018-03-24 07:14] LABS: BASO % 0.7 % (0-2.0); EOS % 0.7 % (0-4.5); HEMATOCRIT 36.9 % (32.4-45.2); HEMOGLOBIN 12.6 GM/dL (10.7-15.3); LYMPH % 51.4 % (8-40); MCH 30.4 pg (25.7-33.7); MCHC 34.1 g/dl (32.0-36.0); MEAN CELL VOLUME 89.1 fl (80-96); MEAN PLT VOLUME 9.1 fl (7.5-11.1); MONO % 5.9 % (3.8-10.2); NEUT % 41.3 % (42.8-82.8); PLATELET COUNT 163 K/MM3 (134-434); RBC 4.14 M/mm3 (3.60-5.2); RDW 14.6 % (11.6-15.6); WHITE BLOOD COUNT 5.4 K/mm3 (4.0-10.0)
[2018-03-24 07:35] LABS: ANION GAP 8 MMOL/L (8-16); BLOOD UREA NITROGEN 18 mg/dL (7-18); CALCIUM 8.4 mg/dL (8.5-10.1); CHLORIDE 109 mmol/L (98-107); CO2 25 mmol/L (21-32); CREATININE 1.1 mg/dL (0.55-1.3); GLUCOSE,RANDOM 99 mg/dL (74-106); POTASSIUM 3.9 mmol/L (3.5-5.1); SODIUM 142 mmol/L (136-145)
[2018-03-24] MEDS: metoPROLOL SUCCINATE 25 MG TAB.SR.24H (FP) PO SCH (09:17)
--- NOTE | 2018-03-24 10:15 | PN ---
Progress Note, Physician History of Present Illness: feels good no n/v no diarea no cp vss going [facility] now for card cath w dr gonzalez - Current Medication List Current Medications: Active Medications Atorvastatin Calcium (Lipitor -) 10 mg PO HS [facility] Last Admin: 03/23/18 21:57 Dose: 10 mg Heparin Sodium (Porcine) (Heparin -) 1,000 unit IVPUSH PRN PRN PRN Reason: Heparin Last Admin: 03/23/18 19:39 Dose: 1,000 unit Heparin Sodium (Porcine) (Heparin -) 5,000 unit IVPUSH PRN PRN PRN Reason: Heparin Hydroxyzine HCl (Atarax -) 25 mg PO HS [facility] Last Admin: 03/23/18 22:00 Dose: 25 mg Sodium Chloride (Normal Saline -) 1,000 mls @ 100 mls/hr IV ASDIR [facility] Last Admin: 03/23/18 17:53 Dose: 100 mls/hr HEPARIN SOD,PORK IN 0.45% NACL (Heparin-1/2ns 25,000 Units/500) 25,000 unit in 500 mls @ 16 mls/hr IVPB TITR [facility]; Protocol Last Admin: 03/23/18 11:45 Dose: 800 units/hr, 16 mls/hr Metoprolol Succinate (Toprol Xl -) 25 mg PO DAILY [facility] Last Admin: 03/24/18 09:17 Dose: 25 mg Mirtazapine (Remeron -) 45 mg PO HS [facility] Last Admin: 03/23/18 21:57 Dose: 45 mg Quetiapine Fumarate (Seroquel -) 400 mg PO HS [facility] Last Admin: 03/23/18 21:57 Dose: 400 mg - Objective Vital Signs: Vital Signs Temperature 97.7 F 03/24/18 06:00 Pulse Rate 94 H 03/24/18 06:00 Respiratory Rate 18 03/24/18 06:00 Blood Pressure 124/66 03/24/18 06:00 O2 Sat by Pulse Oximetry (%) 96 03/23/18 21:00 Labs: CBC, BMP 03/24/18 05:30 03/24/18 05:30 INR, PTT INR 1.03 (0.83-1.09) 03/23/18 12:00 Problem List - Problems (1) Gastroenteritis Code(s): K52.9 - NONINFECTIVE GASTROENTERITIS AND COLITIS, UNSPECIFIED
--- NOTE | 2018-03-24 10:43 | PN ---
Progress Note, Physician History of Present Illness: seen and examined today in nad. states she is feeling better. no chest pain overnight. no new complaints. - Current Medication List Current Medications: Active Medications Atorvastatin Calcium (Lipitor -) 10 mg PO HS [facility] Last Admin: 03/23/18 21:57 Dose: 10 mg Heparin Sodium (Porcine) (Heparin -) 1,000 unit IVPUSH PRN PRN PRN Reason: Heparin Last Admin: 03/23/18 19:39 Dose: 1,000 unit Heparin Sodium (Porcine) (Heparin -) 5,000 unit IVPUSH PRN PRN PRN Reason: Heparin Hydroxyzine HCl (Atarax -) 25 mg PO HS [facility] Last Admin: 03/23/18 22:00 Dose: 25 mg Sodium Chloride (Normal Saline -) 1,000 mls @ 100 mls/hr IV ASDIR [facility] Last Admin: 03/23/18 17:53 Dose: 100 mls/hr HEPARIN SOD,PORK IN 0.45% NACL (Heparin-1/2ns 25,000 Units/500) 25,000 unit in 500 mls @ 16 mls/hr IVPB TITR [facility]; Protocol Last Admin: 03/23/18 11:45 Dose: 800 units/hr, 16 mls/hr Metoprolol Succinate (Toprol Xl -) 25 mg PO DAILY [facility] Last Admin: 03/24/18 09:17 Dose: 25 mg Mirtazapine (Remeron -) 45 mg PO [facility] Last Admin: 03/23/18 21:57 Dose: 45 mg Quetiapine Fumarate (Seroquel -) 400 mg PO [facility] Last Admin: 03/23/18 21:57 Dose: 400 mg - Objective Vital Signs: Vital Signs Temperature 97.7 F 03/24/18 06:00 Pulse Rate 94 H 03/24/18 06:00 Respiratory Rate 18 03/24/18 06:00 Blood Pressure 124/66 03/24/18 06:00 O2 Sat by Pulse Oximetry (%) 96 03/23/18 21:00 Constitutional: Yes: No Distress, Calm Eyes: Yes: Conjunctiva Clear, EOM Intact HENT: Yes: Atraumatic, Normocephalic Neck: Yes: Supple, Trachea Midline Cardiovascular: Yes: Regular Rate and Rhythm, S1, S2. No: Bradycardia, Tachycardia, Pulse Irregular, Bruit, JVD, Gallop, Murmur, Rub, S3, S4, Varicosities Respiratory: Yes: Regular, CTA Bilaterally. No: Rales, Rhonchi, Wheezes Gastrointestinal: Yes: Normal Bowel Sounds, Soft. No: Distention, Tenderness Musculoskeletal: Yes: WNL Extremities: Yes: WNL Edema: No Peripheral Pulses WNL: Yes Peripheral Pulses: Left Doralis Pedis: 2+, Right Dorsalis Pedis: 2+ Neurological: Yes: Alert, Oriented Psychiatric: Yes: Alert, Oriented Labs: CBC, BMP 03/24/18 05:30 03/24/18 05:30 INR, PTT INR 1.03 (0.83-1.09) 03/23/18 12:00 - ....Imaging Chest X-ray: Report Reviewed, Image Reviewed EKG: Report Reviewed, Image Reviewed Other: Report Reviewed, Image Reviewed (tele-nsr, apcs, pvcs) Assessment/Plan 67 year old woman with a history of HTN, HLD, bipolar disorder, anxiety prior admissions with AMS and possible seizures, recently weaning down on seroquel admitted with c/o 3 day history of persistent nausea, vomiting, abd pain and 1 day history chest pain. Noted to have a mildly uptrending troponin on admission from .02 to .78. Pt was seen and examined in the ER in nad, sleeping prior to exam. when awoken she admits to L axilla chest pain radiating up to front of L chest in addition to abd pain. states the chest pain is at rest, worse with deep inspiration.. No lightheadedness, dizziness. No pnd, orthopnea, or LE edema. Echo 03/2016 showed normal LV systolic function, mild valvular abnormalities, mild to mod PAH Elevated troponin-NSTEMI -no further chest pain -cont heparin gtt for now -plan for transfer to [facility] today for cardiac cath -Start Aspirin -cont Lipitor -cont Metoprolol -make NPO for cardiac cath
[2018-03-24] MEDS ORDERED: ASPIRIN 81 MG CHEWABLE TABLETS PO SCH (11:15)
[2018-03-24] MEDS ORDERED: ASPIRIN 81 MG CHEWABLE TABLETS ONE (11:24)
[2018-03-24 11:55] VITALS: BP 135/65; PULSE 102; TEMP 97.2
--- NOTE | 2018-03-24 16:52 | EKG ---
Test Reason : Blood Pressure : / mmHG Vent. Rate : 081 BPM Atrial Rate : 081 BPM P-R Int : 142 ms QRS Dur : 076 ms QT Int : 370 ms P-R-T Axes : 074 061 080 degrees QTc Int : 429 ms SINUS RHYTHM WITH OCCASIONAL PREMATURE VENTRICULAR COMPLEXES ANTERIOR INFARCT , AGE UNDETERMINED ABNORMAL ECG Confirmed by MD EVERTON, PHIL ([id number]) on 03/24/2018 4:51:56 PM Referred By: Confirmed By:PHIL TOSCANO MD
== END 2018-03-24 12:08 | disposition short-term general hospital (02) ==
LOC: JER 21:37 → JERBED 22:51 → J4S 03-23 15:49
PROVIDERS: ADMIT Family Medicine; ATTEND Family Medicine
PROC: 3E033GC Introduction of Other Therapeutic Substance into Peripheral Vein, Percutaneous Approach (ICD-10-PCS; principal; 2018-03-22)
PROC: 3E0337Z Introduction of Electrolytic and Water Balance Substance into Peripheral Vein, Percutaneous Approach (ICD-10-PCS; 2018-03-22)
DX: K52.9 Noninfective gastroenteritis and colitis, unspecified (principal); R00.0 Tachycardia, unspecified; R00.1 Bradycardia, unspecified; R77.8 Other specified abnormalities of plasma proteins; F29 Unspecified psychosis not due to a substance or known physiological condition; I10 Essential (primary) hypertension; E78.5 Hyperlipidemia, unspecified; K21.9 Gastro-esophageal reflux disease without esophagitis; F42.9 Obsessive-compulsive disorder, unspecified; F17.210 Nicotine dependence, cigarettes, uncomplicated; F41.9 Anxiety disorder, unspecified; F31.9 Bipolar disorder, unspecified; G40.909 Epilepsy, unspecified, not intractable, without status epilepticus; G47.00 Insomnia, unspecified; Z86.14 Personal history of Methicillin resistant Staphylococcus aureus infection; Z88.1 Allergy status to other antibiotic agents; Z88.2 Allergy status to sulfonamides
CPT/HCPCS: 36415; 71045-TC-FY; 80048; 80053; 80307; 82009; 82550; 82553; 83036; 84484; 85025; 85027; 85610; 85730; 93005; 93010; 93306-TC; 96365; 96375; 96376; 99285-25; G0378; J1644; J7030

== ENCOUNTER 2018-08-03 15:32 | Inpatient (IN) | payer OTHER ==
--- NOTE | 2018-08-03 16:06 | PDOC ---
History of Present Illness - General Chief Complaint: Weakness Stated Complaint: SHORTNESS OF BREATH Time Seen by Provider: 08/03/18 15:53 History Source: Patient Exam Limitations: No Limitations - History of Present Illness Initial Comments: 68 yo f w a hx of anxiety, bipolar disorder, HTN, and HLD presents to the ER with shortness of breath for the past 3 days. She reports that when she takes a deep breath it is painful. She states she has also been experiencing mild left sided chest pain which occasionally radiates down her left arm. She states she spoke with her brother who is her PCP - Dr. Raul Beckham - who suggested she should goto [place] to make sure she doesn't have a pulmonary embolus. She has no history of a DVT or other blood clot. She denies recent surgeries, denies taking exogenous estrogen, and denies recent travel. PCP: Dr. Raul Beckham Social Hx: Smokes cigarettes every day. States she recently quit. Denies other toxic habits. PSH: Appendectomy, Tonsillectomy Allergies: Amoxicillin, potassium, clindamycin Past History - Past Medical History Allergies/Adverse Reactions: Allergies Allergy/AdvReac Type Severity Reaction Status Date / Time amoxicillin trihydrate Allergy Intermediate Difficulty Verified 08/03/18 16:20 [From Augmentin] Breathing potassium clavulanate Allergy Intermediate Difficulty Verified 08/03/18 16:20 [From Augmentin] Breathing clindamycin Allergy Verified 08/03/18 16:20 Sulfa (Sulfonamide Allergy Verified 08/03/18 16:20 Antibiotics) Home Medications: Ambulatory Orders Atorvastatin Ca [Lipitor] 20 mg PO HS 08/14/15 Aspirin [ASA -] 81 mg PO DAILY 03/23/18 Docusate Sodium 100 mg PO DAILY 03/23/18 Hydroxyzine HCl 50 mg PO DAILY 03/23/18 Metoprolol Succinate 50 mg PO DAILY 03/23/18 Mirtazapine [Remeron -] 30 mg PO HS 03/23/18 Omeprazole 20 mg PO BID PRN 03/23/18 Ondansetron [Zofran -] 4 mg PO DAILY PRN 03/23/18 Quetiapine Fumarate [Seroquel -] 200 mg PO BID 03/23/18 Amlodipine Besylate [Norvasc -] 10 mg PO DAILY 08/03/18 Anemia: No COPD: No GI Disorders: (acid reflux) HTN: Yes Hypercholesterolemia: Yes Psychiatric Problems: Yes (OCD) - Surgical History Abdominal Surgery: Yes (appentectomy) Cholecystectomy: Yes - Immunization History Immunization Up to Date: Yes - Suicide/Smoking/Psychosocial Hx Smoking History: Never smoked Have you smoked in the past 12 months: Yes Number of Cigarettes Smoked Daily: 60 Cigars Per Day: 0 'Breaking Loose' booklet given: 03/23/18 Hx Alcohol Use: No Drug/Substance Use Hx: No Substance Use Type: None Hx Substance Use Treatment: No Review of Systems - Review of Systems Able to Perform ROS?: Yes Comments:: CONSTITUTIONAL: No fever, no chills, + fatigue EYES: No visual changes ENT: No ear pain, no sore throat CARDIOVASCULAR: + chest pain, no palpitations RESPIRATORY: No cough, + SOB GI: No abdominal pain, no nausea, no vomiting, no constipation, no diarrhea GENITOURINARY: No dysuria, no frequency, no hematuria MUSKULOSKELETAL: No backpain, + joint pain, no myalgias SKIN: No rash NEURO: No headache *Physical Exam - Vital Signs Last Vital Signs Temp Pulse Resp BP Pulse Ox 97.4 F L 76 18 136/80 99 08/03/18 15:53 08/03/18 15:53 08/03/18 15:53 08/03/18 15:53 08/03/18 15:53 - Physical Exam Comments: CONSTITUTIONAL: Well-appearing; well-nourished; in no apparent distress HEAD: Normocephalic; atraumatic EYES: PERRL; EOM intact ENMT: External appears normal; normal oropharynx NECK: Supple; non-tender; no cervical lymphadenopathy CARD: Normal S1, S2; no murmurs, rubs, or gallops RESP: Normal chest excursion with respiration; breath sounds clear and equal bilaterally; no wheezes, rhonchi, or rales ABD: Soft, non-distended; non-tender; no palpable organomegaly, no palpable hernias EXT: Limited ROM in all four extremities; bilateral calf TTP. No calf swelling or erythema. distal pulses intact SKIN: Warm, dry, no rash NEURO: No focal neurological deficiencies. ED Treatment Course - LABORATORY CBC & Chemistry Diagram: 08/03/18 16:54 08/03/18 16:07 Medical Decision Making - Medical Decision Making 68 yo f w a hx of anxiety, bipolar disorder, HTN, and HLD presents to the ER with shortness of breath for the past 3 days. She reports that when she takes a deep breath it is painful. She states she has also been experiencing mild left sided chest pain which occasionally radiates down her left arm. She states she spoke with her brother who is her PCP - Dr. Raul Beckham - who suggested she should goto [place]'s to make sure she doesn't have a pulmonary embolus. She has no history of a DVT or other blood clot. She denies recent surgeries, denies taking exogenous estrogen, and denies recent travel. VS: WNL MDM: Patient comes in with chest pain and SOB. Plan: Will do a cardio-resp work up on patient to evaluate for ACS vs PE vs PNA vs pneumothorax - Consult to Dr. Beckham: Raul would like the patient admitted to his service. After ED workup with admit the patient to telemetry. *DC/Admit/Observation/Transfer Diagnosis at time of Disposition: Chest pain, Shortness of breath - Discharge Dispostion Condition at time of disposition: Stable Decision to Admit order: Yes - Referrals Referrals: Raul Beckham MD [Primary Care Provider] - - Patient Instructions - Post Discharge Activity
[2018-08-03 17:22] LABS: BASO % 0.5 % (0-2.0); EOS % 0.3 % (0-4.5); HEMATOCRIT 43.4 % (32.4-45.2); HEMOGLOBIN 14.5 GM/dL (10.7-15.3); MCH 29.2 pg (25.7-33.7); MCHC 33.3 g/dl (32.0-36.0); MEAN CELL VOLUME 87.8 fl (80-96); MEAN PLT VOLUME 9.2 fl (7.5-11.1); MONO % 6.2 % (3.8-10.2); PLATELET COUNT 173 K/MM3 (134-434); RBC 4.95 M/mm3 (3.60-5.2); RDW 13.3 % (11.6-15.6); WHITE BLOOD COUNT 6.4 K/mm3 (4.0-10.0)
[2018-08-03 17:31] LABS: INR 0.99 (0.83-1.09); PROTHROMBIN TIME (PATIENT) 11.7 SEC (9.7-13.0)
[2018-08-03 17:33] LABS: PH,URINE 6.5 (5.0-8.0); URINE APPEARANCE CLEAR; URINE BILIRUBIN NEGATIVE (NEGATIVE); URINE COLOR YELLOW; URINE GLUCOSE (UA) NEGATIVE (NEGATIVE); URINE KETONE NEGATIVE (NEGATIVE); URINE LEUK ESTERASE NEGATIVE (NEGATIVE); URINE NITRITE NEGATIVE (NEGATIVE); URINE PROTEIN NEGATIVE (NEGATIVE); URINE UROBILINOGEN 0.2 mg/dL (0.2-1.0)
[2018-08-03 17:40] LABS: ALBUMIN 4.1 g/dl (3.4-5.0); BILIRUBIN,TOTAL 0.4 mg/dL (0.2-1); CALCIUM 9.4 mg/dL (8.5-10.1); CREATININE 1.3 mg/dL (0.55-1.3); POTASSIUM 4.7 mmol/L (3.5-5.1); TOT PROT 7.9 g/dl (6.4-8.2)
[2018-08-03 17:43] LABS: LIPASE 161 U/L (73-393); N-TERMINAL BNP 154.8 pg/ml (5-125)
[2018-08-04] MEDS ORDERED: ATORVASTATIN CA 20 MG TABLET (FP) PO ONE (01:45)
[2018-08-04] MEDS ORDERED: MIRTAZAPINE 15 MG TABLET (FP) PO ONE ×2 (01:45→02:00)
[2018-08-04] MEDS ORDERED: QUEtiapine FUMARATE 100 MG TABLET (FP) PO ONE (01:45)
[2018-08-04] MEDS ORDERED: PANTOPRAZOLE 20 MG TABLET (FP) PO PRN ×2 (01:46→01:54)
[2018-08-04] MEDS ORDERED: hydrOXYzine HCL 25 MG TABLET (FP) PO PRN (01:46)
[2018-08-04] MEDS ORDERED: ONDANSETRON 4 MG TABLET PO PRN (01:47)
[2018-08-04 01:49] VITALS: BMI 33.2
[2018-08-04] MEDS: hydrOXYzine HCL 25 MG TABLET (FP) PO PRN ×2 (02:02→22:30)
[2018-08-04] MEDS ORDERED: IPRATROPIUM BR 0.02% 0.5 MG/2.5 ML VIAL.NEB. NEB PRN (03:41)
--- NOTE | 2018-08-04 08:56 | HP ---
Admitting History and Physical - Admission Chief Complaint: chest pain sob weeks on off nausea History Source: Patient - Past Medical History [employer]: Yes: Seizure Cardiovascular: Yes: HTN, Hyperlipdemia, Other (pvcs on ekg) Pulmonary: Yes: COPD Gastrointestinal: Yes: Other (diarrea and abd pain) ...: No Infectious Disease: Yes: MRSA (right elbow) Psych: Yes: Anxiety, Bipolar, Other (ocd) - Past Surgical History Past Surgical History: Yes: Appendectomy, Tonsillectomy - Smoking History Smoking history: Current every day smoker Have you smoked in the past 12 months: Yes Aproximately how many cigarettes per day: 20 - Alcohol/Substance Use Hx Alcohol Use: No History of Substance Use: reports: None - Social History ADL: Independent History of Recent Travel: No Home Medications - Allergies Allergies/Adverse Reactions: Allergies Allergy/AdvReac Type Severity Reaction Status Date / Time amoxicillin trihydrate Allergy Intermediate Difficulty Verified 08/03/18 16:20 [From Augmentin] Breathing potassium clavulanate Allergy Intermediate Difficulty Verified 08/03/18 16:20 [From Augmentin] Breathing clindamycin Allergy Verified 08/03/18 16:20 Sulfa (Sulfonamide Allergy Verified 08/03/18 16:20 Antibiotics) - Home Medications Home Medications: Ambulatory Orders Atorvastatin Ca [Lipitor] 20 mg PO HS 08/14/15 Aspirin [ASA -] 81 mg PO DAILY 03/23/18 Docusate Sodium 100 mg PO DAILY 03/23/18 Hydroxyzine HCl 50 mg PO DAILY 03/23/18 Metoprolol Succinate 50 mg PO DAILY 03/23/18 Mirtazapine [Remeron -] 30 mg PO HS 03/23/18 Omeprazole 20 mg PO BID PRN 03/23/18 Ondansetron [Zofran -] 4 mg PO DAILY PRN 03/23/18 Quetiapine Fumarate [Seroquel -] 200 mg PO BID 03/23/18 Amlodipine Besylate [Norvasc -] 10 mg PO DAILY 08/03/18 Family Disease History - Family Disease History Family History: Unremarkable Review of Systems - Review of Systems Constitutional: reports: No Symptoms Eyes: reports: No Symptoms HENT: reports: No Symptoms Neck: reports: No Symptoms Cardiovascular: reports: Chest Pain Respiratory: reports: SOB Gastrointestinal: reports: No Symptoms Genitourinary: reports: No Symptoms Breasts: reports: No Symptoms Reported Musculoskeletal: reports: No Symptoms Integumentary: reports: No Symptoms Neurological: reports: No Symptoms Endocrine: reports: No Symptoms Hematology/Lymphatic: reports: No Symptoms Psychiatric: reports: Anxiety Physical Examination Vital Signs: Vital Signs Temperature 97.8 F 08/04/18 02:41 Pulse Rate 60 08/04/18 02:41 Respiratory Rate 16 08/04/18 04:26 Blood Pressure 126/60 08/04/18 02:41 O2 Sat by Pulse Oximetry (%) 98 08/04/18 04:26 Constitutional: Yes: Well Nourished Eyes: Yes: WNL HENT: Yes: WNL Neck: Yes: WNL Cardiovascular: Yes: Other (tender chest) Respiratory: Yes: WNL Gastrointestinal: Yes: WNL ...Rectal Exam: Yes: Deferred Renal/: Yes: WNL Breast(s): Yes: WNL Musculoskeletal: Yes: WNL Extremities: Yes: WNL Edema: No Peripheral Pulses WNL: Yes Integumentary: Yes: WNL Neurological: Yes: WNL ...Motor Strength: WNL Psychiatric: Yes: WNL Labs: CBC, BMP 08/03/18 16:54 08/03/18 16:07 Problem List - Problems (1) Bipolar 1 disorder, depressed, severe Code(s): F31.4 - BIPOLAR DISORD, CRNT EPSD DEPRESS, SEV, W/O PSYCH FEATURES Assessment/Plan started lama to a ics ans laba to improve sob she never took in haler due to rt wrist pain chronic so respimat inhaler give easier to use card and pulm to see her ? d/c in am con t all meds as is needs psche meds
[2018-08-04] MEDS ORDERED: PT OWN MED DRAWER 7, Y5N ONE ×3 (09:38→22:30)
--- NOTE | 2018-08-04 09:39 | ECHO ---
Version: 1 Name: KARON ARANDA Exam: Adult Echocardiogram Study Date: 08/04/2018, 7:33 AM Age: 68 Years MMode/2D Measurements & Calculations IVSd: 1.01 cm LVIDs: 2.5 cm LVIDd: 4.3 cm LVPWd: 0.74 cm ACS: 1.72 cm Ao root diam: 3.4 cm LA dimension: 3.4 cm Doppler Measurements & Calculations MV E max will: 62.2 cm/sec Med E/e': 17.2 MV A max will: 84.4 cm/sec Med Peak E' Will: 3.6 cm/sec MV E/A: 0.74 Lat E/e': 10.3 Lat Peak E' Will: 6.0 cm/sec MR max P.7 mmHg Ao max P.3 mmHg Ao mean P.8 mmHg Ao V2 max: 125.1 cm/sec TR max will: 246.7 cm/sec TR max P.5 mmHg Procedure A two-dimensional transthoracic echocardiogram with color flow and Doppler was performed in limited views only. Left Ventricle The left ventricle is grossly normal size. Hyperdynamic LV with increased ejection fraction. Ejectio n Fraction = 75%. E/A reversal consistent with but not diagnostic of poor LV compliance. Right Ventricle The right ventricle is not well visualized. The right ventricle is grossly normal size. The right ve ntricular systolic function is grossly normal. Atria The left atrial size is normal. Right atrium not well visualized. Mitral Valve There is mild to moderate mitral annular calcification. Calcified mitral apparatus causing mitral st enosis. There is mild mitral regurgitation. Tricuspid Valve The tricuspid valve is not well visualized. There is mild tricuspid regurgitation. Right ventricular systolic pressure is normal. Right ventricular systolic pressure is elevated at 30 mmhg. Aortic Valve There is mild to moderate aortic sclerosis.;. No hemodynamically significant valvular aortic stenosi s. Pulmonic Valve The pulmonic valve is not well visualized. Great Vessels The aortic root is not well visualized. Pericardium/Pleura There is no pericardial effusion. Summary Statements A two-dimensional transthoracic echocardiogram with color flow and Doppler was performed in limited views only. The left ventricle is grossly normal size. Hyperdynamic LV with increased ejection fraction. Ejection Fraction = 75%. The right ventricle is not well visualized. The right ventricle is grossly normal size. The right ve ntricular systolic function is grossly normal. The left atrial size is normal. Right atrium not well visualized. There is mild to moderate mitral annular calcification. Calcified mitral apparatus causing mitral st enosis. There is mild mitral regurgitation. There is mild to moderate aortic sclerosis.; No hemodynamically significant valvular aortic stenosis . 08/04/2018, 8:39 MD Monica Luevano AM Ordering Physician: Raul Aranda Performed By: Patito Wisdom
[2018-08-04] MEDS: DOCUSATE SODIUM 100 MG CAPSULE (FP) PO SCH (09:46)
[2018-08-04] MEDS: amLODIPine BESYLATE 10 MG TABLET (FP) PO SCH (09:46)
[2018-08-04] MEDS: FLUoxetine HCL 10 MG CAPSULE (FP) PO SCH (09:47)
[2018-08-04] MEDS: BUDESONIDE/FORMETEROL FUMARATE 80/4.5 mcg INHALER IH SCH ×2 (09:47→22:02)
[2018-08-04] MEDS: TIOTROPIUM BROMIDE 2.5 MCG (SPIRIVA) RESPIMAT INHALER IH SCH (09:47)
--- NOTE | 2018-08-04 11:41 | CON.CARD ---
Consult Consult Specialty:: Cardiology Referred by:: Raul Beckham Reason for Consultation:: SOB - History of Present Illness Chief Complaint: SOB and chest pain History of Present Illness: 68 year old female with a pmhx of bipolar disorder, htn, hld, and anxiety admitted with sob. C/o sob worsening for the last 2 months or so. H/o tobacco use 1 ppd. She says her exercise level has dropped due to dyspnea and now doesn 't leave the house because she gets sob. Some mild chest tightness at times as well. No pnd, orthopnea, or edema. No recent travels. No leg swelling. 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 Cardio/Vascular: Yes: HTN, Hyperlipdemia, Other (pvcs on ekg) Pulmonary: Yes: COPD Gastrointestinal: Yes: Other (diarrea and abd pain) ...: No Infectious Disease: Yes: MRSA (right elbow) Psych: Yes: Anxiety, Bipolar, Other (ocd) - Past Surgical History Past Surgical History: Yes: Appendectomy, Tonsillectomy - Alcohol/Substance Use Hx Alcohol Use: No History of Substance Use: reports: None - Smoking History Smoking history: Current every day smoker Have you smoked in the past 12 months: Yes Aproximately how many cigarettes per day: 20 - Social History Usual Living Arrangement: Alone ADL: Independent History of Recent Travel: No Home Medications - Allergies Allergies/Adverse Reactions: Allergies Allergy/AdvReac Type Severity Reaction Status Date / Time amoxicillin trihydrate Allergy Intermediate Difficulty Verified 08/03/18 16:20 [From Augmentin] Breathing potassium clavulanate Allergy Intermediate Difficulty Verified 08/03/18 16:20 [From Augmentin] Breathing clindamycin Allergy Verified 08/03/18 16:20 Sulfa (Sulfonamide Allergy Verified 08/03/18 16:20 Antibiotics) - Home Medications Home Medications: Ambulatory Orders Atorvastatin Ca [Lipitor] 20 mg PO HS 08/14/15 Aspirin [ASA -] 81 mg PO DAILY 03/23/18 Docusate Sodium 100 mg PO DAILY 03/23/18 Hydroxyzine HCl 50 mg PO DAILY 03/23/18 Metoprolol Succinate 50 mg PO DAILY 03/23/18 Mirtazapine [Remeron -] 30 mg PO HS 03/23/18 Omeprazole 20 mg PO BID PRN 03/23/18 Ondansetron [Zofran -] 4 mg PO DAILY PRN 03/23/18 Quetiapine Fumarate [Seroquel -] 200 mg PO BID 03/23/18 Amlodipine Besylate [Norvasc -] 10 mg PO DAILY 08/03/18 Vital Signs: Vital Signs Temperature 97.8 F 08/04/18 09:01 Pulse Rate 73 08/04/18 09:01 Respiratory Rate 18 08/04/18 09:01 Blood Pressure 112/61 08/04/18 09:01 O2 Sat by Pulse Oximetry (%) 98 08/04/18 04:26 Constitutional: Yes: No Distress Neck: Yes: Supple Respiratory: Yes: CTA Bilaterally Gastrointestinal: Yes: Soft Cardiovascular: Yes: Regular Rate and Rhythm JVD: No Carotid Bruit: No PMI: Non-Displaced Heart Sounds: Yes: S1, S2 Murmur: No: Systolic Murmur Edema: No - Other Data Labs, Other Data: CBC, BMP 08/03/18 16:54 08/03/18 16:07 INR, PTT INR 0.99 (0.83-1.09) 08/03/18 16:54 Troponin, BNP 08/03/18 08/04/18 16:08 05:55 Troponin I < 0.02 < 0.02 B-Natriuretic Peptide 154.8 H Troponin, BNP 08/03/18 08/04/18 16:08 05:55 Troponin I < 0.02 < 0.02 B-Natriuretic Peptide 154.8 H Imaging - Results Chest X-ray: Report Reviewed Cat Scan: Report Reviewed EKG: Image Reviewed Problem List - Problems (1) Chest pain Code(s): R07.9 - CHEST PAIN, UNSPECIFIED (2) Shortness of breath Code(s): R06.02 - SHORTNESS OF BREATH Assessment/Plan 68 year old female with a pmhx of bipolar disorder, htn, hld, and anxiety admitted with sob and chest tightness. 1) SOB -No wheeze on exam. Ct chest done in July with unremarkable lungs on study. -Given risk factors of htn and tobacco use in 68 year old female would consider cardiac work up. EKG sinus rhythm, nl st segments, anterior infact pattern (old ). Echocardiogram with hyperdynamic LVEF and no significant valve disease to explain. No signs of chf on exam or on chest xray. Given worsening dyspnea on exertion and some chest tightness with history of + troponins in the past admission with risk factors would consider ischemia work up with a nuclear regadenason stress test. -Currently on aspirin/statin/metoprolol BP well controlled.
--- NOTE | 2018-08-04 12:03 | EKG ---
Test Reason : Blood Pressure : / mmHG Vent. Rate : 074 BPM Atrial Rate : 074 BPM P-R Int : 142 ms QRS Dur : 076 ms QT Int : 390 ms P-R-T Axes : 061 048 066 degrees QTc Int : 432 ms SINUS RHYTHM WITH PREMATURE ATRIAL COMPLEXES POSSIBLE LEFT ATRIAL ENLARGEMENT SEPTAL INFARCT (CITED ON OR BEFORE 23-MAR-2018) ABNORMAL ECG Confirmed by John Bagley MD ([id number]) on 08/04/2018 12:02:48 PM Referred By: Confirmed By:John Bagley MD
[2018-08-04] MEDS: NICOTINE 21 MG/24 HOURS TOPICAL PATCH TD SCH (18:15)
--- NOTE | 2018-08-04 18:48 | PDOC ---
Documentation entered by Constanza Clark SCRIBE, acting as scribe for Lottie Smith MD. Lottie Smith MD: This documentation has been prepared by the Amber bailey Sammi, SCRIBE, under my direction and personally reviewed by me in its entirety. I confirm that the documentation accurately reflects all work, treatment, procedures, and medical decision making performed by me. Attending Attestation - Resident Resident Name: Clint Spring - ED Attending Attestation I have performed the following: I have examined & evaluated the patient, The case was reviewed & discussed with the resident, I agree w/resident's findings & plan, Exceptions are as noted - HPI HPI: 08/03/18 18:47 The patient is a 68 year old female, with a significant PMH of anxiety, bipolar disorder, panic attacks, HTN, and HLD, who presents to the emergency department for evaluation of 3 days of worsening SOB, left sided chest pain which is pleuritic and with radiation down her left arm. The patient also notes intermittent chronic abdominal pain with associated loose stools. The patient was sent in by her PCP, Dr Raul Beckham for further evaluation. Allergies: Amoxicillin, potassium, clindamycin Social Hx: Smokes cigarettes every day. States she recently quit. Denies other toxic habits. PSH: Appendectomy, Tonsillectomy PCP: Dr. Raul Beckham - Physicial Exam PE: 08/03/18 21:12 GENERAL: Well developed, well nourished. Awake and alert. No acute distress. Conversant. HEENT: Normocephalic, atraumatic. PERRLA, EOMI. No conjunctival pallor. Sclera are non- icteric. Moist mucous membranes. Oropharynx is clear. NECK: Supple. Full ROM. No JVD. Carotid pulses 2+ and symmetric, without bruits. No thyromegaly. No lymphadenopathy. CARDIOVASCULAR: Regular rate and rhythm. No murmurs, rubs, or gallops. Distal pulses are 2+ and symmetric. PULMONARY: No evidence of respiratory distress. Lungs clear to auscultation bilaterally. No wheezing, rales or rhonchi. ABDOMINAL: Protuberant. Soft. Non-distended. No rebound or guarding. No organomegaly. Normoactive bowel sounds. MUSCULOSKELETAL Normal range of motion at all joints. No bony deformities or tenderness. No CVA tenderness. EXTREMITIES: No cyanosis. No clubbing. No edema. No calf tenderness. SKIN: Warm and dry. Normal capillary refill. No rashes. No jaundice. NEUROLOGICAL: Alert, awake, appropriate. Cranial nerves 2-12 intact. No deficits to light touch and temperature in face, upper extremities and lower extremities. No motor deficits in the in face, upper extremities and lower extremities. Normoreflexic in the upper and lower extremities. Normal speech. Toes are down- going bilaterally. Gait is normal without ataxia. PSYCHIATRIC: Cooperative. Good eye contact. Appropriate mood and affect. - Medical Decision Making 08/05/18 01:30 68 yo female with multiple complaints was admitted for chest pain to telemetry
[2018-08-04] MEDS ORDERED: QUEtiapine FUMARATE 100 MG TABLET (FP) PO SCH (22:00)
[2018-08-04] MEDS ORDERED: ATORVASTATIN CA 20 MG TABLET (FP) PO SCH (22:00)
[2018-08-04] MEDS ORDERED: MIRTAZAPINE 15 MG TABLET (FP) PO SCH (22:00)
--- NOTE | 2018-08-05 07:02 | PN ---
Progress Note, Physician Chief Complaint: pt c/o sob but no labored breathing noted vs? anxiety vs smokers lung plan if strees test nl d/c home on inhalers in hospital f/u w pshce for ? axiety may d/c in am ? o 2 tx not necesscery - Current Medication List Current Medications: Active Medications Amlodipine Besylate (Norvasc -) 10 mg PO DAILY [facility] Last Admin: 08/04/18 09:46 Dose: 10 mg Atorvastatin Calcium (Lipitor -) 20 mg PO HS [facility] Last Admin: 08/04/18 22:26 Dose: 20 mg Budesonide/Formoterol Fumarate (Symbicort 80/4.5mcg -) 2 puff IH BID [facility] Last Admin: 08/04/18 22:02 Dose: 2 puff Docusate Sodium (Colace -) 100 mg PO DAILY [facility] Last Admin: 08/04/18 09:46 Dose: 100 mg Fluoxetine HCl (Prozac -) 10 mg PO DAILY [facility] Last Admin: 08/04/18 09:47 Dose: Not Given Hydroxyzine HCl (Atarax -) 25 mg PO Q8H PRN PRN Reason: ITCHINESS/SLEEP Last Admin: 08/04/18 22:30 Dose: 25 mg Metoprolol Succinate (Toprol Xl -) 50 mg PO DAILY [facility] Last Admin: 08/04/18 09:47 Dose: 50 mg Mirtazapine (Remeron -) 30 mg PO HS [facility] Last Admin: 08/04/18 22:26 Dose: 30 mg Nicotine (Nicoderm Patch -) 21 mg TD DAILY [facility] Last Admin: 08/04/18 18:15 Dose: 21 mg Ondansetron HCl (Zofran -) 4 mg PO Q6H PRN PRN Reason: NAUSEA Pantoprazole Sodium (Protonix -) 20 mg PO DAILY [facility] Quetiapine Fumarate (Seroquel -) 300 mg PO HS [facility] Last Admin: 08/04/18 22:26 Dose: 300 mg Tiotropium [place] (Spiriva Respimat) 2 puff IH DAILY [facility] Last Admin: 08/04/18 09:47 Dose: 2 puff - Objective Vital Signs: Vital Signs Temperature 97.9 F 08/05/18 06:00 Pulse Rate 67 08/05/18 06:00 Respiratory Rate 17 08/05/18 06:00 Blood Pressure 135/62 06/05/19 06:00 O2 Sat by Pulse Oximetry (%) 96 08/04/18 21:00 Labs: CBC, BMP 08/03/18 16:54 08/03/18 16:07 INR, PTT INR 0.99 (0.83-1.09) 08/03/18 16:54 Problem List - Problems (1) Bipolar 1 disorder, depressed, severe Code(s): F31.4 - BIPOLAR DISORD, CRNT EPSD DEPRESS, SEV, W/O PSYCH FEATURES
[2018-08-05 07:31] LABS: BASO % 0.6 % (0-2.0); HEMATOCRIT 40.3 % (32.4-45.2); HEMOGLOBIN 13.5 GM/dL (10.7-15.3); MCH 29.2 pg (25.7-33.7); MCHC 33.6 g/dl (32.0-36.0); MEAN CELL VOLUME 87.1 fl (80-96); MEAN PLT VOLUME 8.9 fl (7.5-11.1); MONO % 6.7 % (3.8-10.2); NEUT % 56.7 % (42.8-82.8); PLATELET COUNT 189 K/MM3 (134-434); RBC 4.63 M/mm3 (3.60-5.2); WHITE BLOOD COUNT 6.1 K/mm3 (4.0-10.0)
[2018-08-05 07:56] LABS: ALBUMIN 3.6 g/dl (3.4-5.0); BILIRUBIN,TOTAL 0.5 mg/dL (0.2-1); CALCIUM 9.1 mg/dL (8.5-10.1); CREATININE 1.1 mg/dL (0.55-1.3); POTASSIUM 4.2 mmol/L (3.5-5.1)
[2018-08-05] MEDS ORDERED: ACETAMINOPHEN 325 MG TABLET (FP) PO PRN (08:14)
[2018-08-05] MEDS ORDERED: IPRATROPIUM BR 0.02% 0.5 MG/2.5 ML VIAL.NEB. NEB ONE (08:15)
[2018-08-05] MEDS: amLODIPine BESYLATE 10 MG TABLET (FP) PO SCH (09:05)
[2018-08-05] MEDS ORDERED: PANTOPRAZOLE 20 MG TABLET (FP) PO SCH (10:00)
[2018-08-05] MEDS ORDERED: REGADENOSON 0.4 MG/5 ML PRE-FILLED SYRINGE IVPUSH ONE ×2 (10:41→11:15)
[2018-08-05] MEDS ORDERED: PT OWN MED DRAWER 7, Y5N ONE ×2 (12:05→12:07)
[2018-08-05] MEDS: FLUoxetine HCL 10 MG CAPSULE (FP) PO SCH (12:21)
[2018-08-05] MEDS: NICOTINE 21 MG/24 HOURS TOPICAL PATCH TD SCH (12:21)
[2018-08-05] MEDS: DOCUSATE SODIUM 100 MG CAPSULE (FP) PO SCH (12:21)
[2018-08-05] MEDS: TIOTROPIUM BROMIDE 2.5 MCG (SPIRIVA) RESPIMAT INHALER IH SCH (12:22)
[2018-08-05] MEDS: BUDESONIDE/FORMETEROL FUMARATE 80/4.5 mcg INHALER IH SCH (12:22)
--- NOTE | 2018-08-05 13:44 | PN ---
Progress Note, Physician Chief Complaint: No complaints today Sinus on tele History of Present Illness: 68 year old female with a pmhx of bipolar disorder, htn, hld, and anxiety admitted with sob. C/o sob worsening for the last 2 months or so. H/o tobacco use 1 ppd. She says her exercise level has dropped due to dyspnea and now doesn 't leave the house because she gets sob. Some mild chest tightness at times as well. No pnd, orthopnea, or edema. No recent travels. No leg swelling. - Current Medication List Current Medications: Active Medications Acetaminophen (Tylenol -) 650 mg PO Q6H PRN PRN Reason: PAIN SCALE 1-5 Last Admin: 08/05/18 08:30 Dose: 650 mg Amlodipine Besylate (Norvasc -) 10 mg PO DAILY [facility] Last Admin: 08/05/18 09:05 Dose: 10 mg Atorvastatin Calcium (Lipitor -) 20 mg PO HS [facility] Last Admin: 08/04/18 22:26 Dose: 20 mg Budesonide/Formoterol Fumarate (Symbicort 80/4.5mcg -) 2 puff IH BID [facility] Last Admin: 08/05/18 12:22 Dose: 2 puff Docusate Sodium (Colace -) 100 mg PO DAILY [facility] Last Admin: 08/05/18 12:21 Dose: 100 mg Fluoxetine HCl (Prozac -) 10 mg PO DAILY [facility] Last Admin: 08/05/18 12:21 Dose: Not Given Hydroxyzine HCl (Atarax -) 25 mg PO Q8H PRN PRN Reason: ITCHINESS/SLEEP Last Admin: 08/04/18 22:30 Dose: 25 mg Metoprolol Succinate (Toprol Xl -) 50 mg PO DAILY [facility] Last Admin: 08/05/18 12:21 Dose: 50 mg Mirtazapine (Remeron -) 30 mg PO HS [facility] Last Admin: 08/04/18 22:26 Dose: 30 mg Nicotine (Nicoderm Patch -) 21 mg TD DAILY [facility] Last Admin: 08/05/18 12:21 Dose: 21 mg Ondansetron HCl (Zofran -) 4 mg PO Q6H PRN PRN Reason: NAUSEA Pantoprazole Sodium (Protonix -) 20 mg PO DAILY [facility] Last Admin: 08/05/18 12:21 Dose: 20 mg Quetiapine Fumarate (Seroquel -) 300 mg PO HS [facility] Last Admin: 08/04/18 22:26 Dose: 300 mg Tiotropium [place] (Spiriva Respimat) 2 puff IH DAILY [facility] Last Admin: 08/05/18 12:22 Dose: 2 puff - Objective Vital Signs: Vital Signs Temperature 97.4 F L 08/05/18 08:38 Pulse Rate 63 08/05/18 08:38 Respiratory Rate 18 08/05/18 08:38 Blood Pressure 139/78 08/05/18 08:38 O2 Sat by Pulse Oximetry (%) 97 08/05/18 09:00 Constitutional: Yes: No Distress Neck: Yes: Supple Cardiovascular: Yes: Regular Rate and Rhythm. No: JVD Respiratory: Yes: CTA Bilaterally Gastrointestinal: Yes: Soft Edema: No Labs: CBC, BMP 08/05/18 06:25 08/05/18 06:25 INR, PTT INR 0.99 (0.83-1.09) 08/03/18 16:54 Problem List - Problems (1) Chest pain Code(s): R07.9 - CHEST PAIN, UNSPECIFIED (2) Shortness of breath Code(s): R06.02 - SHORTNESS OF BREATH Assessment/Plan 68 year old female with a pmhx of bipolar disorder, htn, hld, and anxiety admitted with sob and chest tightness. 1) SOB -No wheeze on exam. Ct chest negative for PE -Yesterday long discussion with patient and she denied any previous cardiac work up. NST with septal and apical ischemia. Today when discussing test results patient informed me that she had a cardiac cath 03/2018 at [facility]. Cath demonstrated chronically occluded septal artery which was supplied retrograde by RCA collaterals. LAD, LCx and RCA were widely patent. Given this information and no acute ekg changes would manage medically aspirin/ statin/beta uche. Lower amlodipine dose and start imdur 30mg if tolerates. Follow up with Dr. Crawford as an outpatient and if persistent symptoms than will consider intervention on HEEL COVERER
[2018-08-05 14:02] VITALS: BP 131/79; PULSE 80; TEMP 98.2
--- NOTE | 2018-08-05 15:44 | EKG ---
Test Reason : Blood Pressure : / mmHG Vent. Rate : 071 BPM Atrial Rate : 071 BPM P-R Int : 138 ms QRS Dur : 070 ms QT Int : 372 ms P-R-T Axes : 059 047 058 degrees QTc Int : 404 ms NORMAL SINUS RHYTHM WITH SINUS ARRHYTHMIA CANNOT RULE OUT ANTERIOR INFARCT (CITED ON OR BEFORE 23-MAR-2018) ABNORMAL ECG WHEN COMPARED WITH ECG OF 23-MAR-2018 15:05, PREMATURE VENTRICULAR COMPLEXES ARE NO LONGER PRESENT T WAVE AMPLITUDE HAS INCREASED IN LATERAL LEADS Confirmed by МАРИЯ BOWLING, ANGELA ([id number]) on 08/05/2018 3:44:03 PM Referred By: Confirmed By:ANGELA HSIEH MD
== END 2018-08-05 18:16 | disposition home or self-care (01) | DRG 313 ==
LOC: JER 15:32 → JERBED 18:19 → J4S 23:48 → OBSVTOIN 08-04 17:16
PROVIDERS: ADMIT Family Medicine; ATTEND Family Medicine
DX: R07.9 Chest pain, unspecified (principal); F31.4 Bipolar disorder, current episode depressed, severe, without psychotic features; I10 Essential (primary) hypertension; E78.5 Hyperlipidemia, unspecified; R06.2 Wheezing; F17.210 Nicotine dependence, cigarettes, uncomplicated; F42.9 Obsessive-compulsive disorder, unspecified
CPT/HCPCS: 36415; 71046-TC-FY; 71275-TC; 78452-TC; 80053; 81003; 82550; 83690; 83880; 84484; 85025; 85379; 85610; 93005; 93010; 93017; 93306-TC; 94640; 97116-GP; 97161-GP; 99284-25; A9502; G0378; J2785

== ENCOUNTER 2020-11-14 08:00 | Inpatient (IN) | payer OTHER ==
[2020-11-07 15:20] VITALS: BMI 32.3
[2020-11-14] MEDS ORDERED: CEFAZOLIN 2 GM in DEXTROSE 5%-WATER - 50 ML IVPB ONE (09:12)
[2020-11-14] MEDS ORDERED: TRANEXAMIC ACID 1000 MG/10 ML VIAL IVPUSH ONE (09:12)
[2020-11-14] MEDS: CELECOXIB 200 MG CAPSULE PO ONE ×2 (09:40→16:36)
[2020-11-14] MEDS ORDERED: SODIUM CHLORIDE 0.9% P/F 10 ML VIAL IJ ONE (10:56)
[2020-11-14] MEDS ORDERED: BUPIVACAINE LIPOSOME/PF (EXPAREL) 266 MG/20 ML VIAL ONE (10:56)
[2020-11-14] MEDS ORDERED: MIDAZOLAM HCL 2 MG/2 ML SINGLE DOSE VIAL ONE (10:56)
[2020-11-14] MEDS ORDERED: BUPIVACAINE HCL/PF 0.5% (5MG/ML) 10 ML VIAL ONE (10:56)
[2020-11-14] MEDS ORDERED: ceFAZolin SODIUM 1 GM VIAL ONE (11:01)
[2020-11-14] MEDS ORDERED: VANCOMYCIN 1,000 MG VIAL (RESTRICTED TO ID ONLY) ONE (11:01)
[2020-11-14] MEDS ORDERED: BUPIVACAINE HCL 50 ML ONE (11:26)
[2020-11-14] MEDS ORDERED: PROPOFOL 20 ML ONE ×4 (11:27)
[2020-11-14] MEDS ORDERED: ONDANSETRON 4 MG/2 ML VIAL IVPUSH PRN (13:46)
[2020-11-14] MEDS ORDERED: MAG HYDROX/AL HYDROX/SIMETH 30 ML UNIT-DOSE CUP PO PRN (13:46)
[2020-11-14] MEDS ORDERED: MAGNESIUM HYDROX 2400MG/30ML ORAL SUSPENSION 30 ML CUP PO PRN (13:46)
[2020-11-14] MEDS ORDERED: LACTATED RINGERS SOLUTION 1,000 ML IV SCH (14:00)
[2020-11-14] MEDS ORDERED: oxyCODONE HCL 5 MG TABLET PO PRN ×2 (14:21)
[2020-11-14] MEDS: PHENYLEPHRINE NS PREMIX 10,000 MCG/100 ML BAG IVPB SCH (16:49)
[2020-11-14] MEDS: CEFAZOLIN 2 GM/D5W 2 GM/50 ML ML IVPB SCH (20:55)
[2020-11-14] MEDS ORDERED: CEFAZOLIN 2 GM in DEXTROSE 5%-WATER - 50 ML IVPB SCH (21:00)
[2020-11-14] MEDS ORDERED: PATIENT'S OWN MEDICATION (NON-FORMULARY) (Hydroxyzine Hcl [Hydroxyzine Hcl] 50 MG Tablet) PO SCH (22:00)
[2020-11-14] MEDS ORDERED: PATIENT'S OWN MEDICATION (NON-FORMULARY) (Omeprazole 20 MG Capsule.Dr) PO SCH (22:00)
[2020-11-14] MEDS: SENNOSIDES/DOCUSATE COMBO (SENNA PLUS) TABLET (UD) PO SCH (23:08)
[2020-11-14] MEDS: hydrOXYzine PAMOATE 25 MG CAPSULE (FP) PO SCH (23:09)
[2020-11-14] MEDS: MIRTAZAPINE 15 MG TABLET (FP) PO SCH (23:09)
[2020-11-14] MEDS: ATORVASTATIN CA 20 MG TABLET (FP) PO SCH (23:09)
[2020-11-14] MEDS: QUEtiapine FUMARATE 200 MG TABLET PO SCH (23:10)
[2020-11-14] MEDS: PANTOPRAZOLE 20 MG TABLET PO SCH (23:12)
[2020-11-15] MEDS ORDERED: PT OWN MED DRAWER 7, Y5N ONE (05:45)
[2020-11-15] MEDS: CEFAZOLIN 2 GM/D5W 2 GM/50 ML ML IVPB SCH (06:00)
[2020-11-15] MEDS: ASPIRIN 325 MG TABLET PO SCH (08:00)
[2020-11-15 08:01] LABS: HEMATOCRIT 42.2 % (32.4-45.2); HEMOGLOBIN 14.3 GM/dl (10.7-15.3); MCH 29.5 pg (25.7-33.7); MCHC 33.9 g/dl (32.0-36.0); MEAN CELL VOLUME 86.9 fl (80-96); MEAN PLT VOLUME 8.9 fl (7.5-11.1); PLATELET COUNT 150 10^3/uL (134-434); RBC 4.85 M/mm3 (3.60-5.2); RDW 13.3 % (11.6-15.6); WHITE BLOOD COUNT 7.7 K/mm3 (4.0-10.8)
[2020-11-15] MEDS: SENNOSIDES/DOCUSATE COMBO (SENNA PLUS) TABLET (UD) PO SCH ×2 (09:16→21:26)
[2020-11-15] MEDS: PANTOPRAZOLE 20 MG TABLET PO SCH ×2 (09:17→21:26)
[2020-11-15] MEDS: amLODIPine BESYLATE 10 MG TABLET (FP) PO SCH (09:17)
[2020-11-15] MEDS: FAMOTIDINE 20 MG TABLET PO SCH (09:17)
[2020-11-15] MEDS: MULTIVITAMINS (DAILY MVI) TABLET (FP) PO SCH (09:17)
[2020-11-15] MEDS: hydrALAZINE HCL 50 MG TABLET (FP) PO SCH (09:17)
[2020-11-15] MEDS: ACETAMINOPHEN 1000 MG/100 ML VIAL (NON FORMULARY) IVPB PRN (15:29)
[2020-11-15] MEDS: PHENYLEPHRINE NS PREMIX 10,000 MCG/100 ML BAG IVPB SCH (16:07)
[2020-11-15] MEDS: MIRTAZAPINE 15 MG TABLET (FP) PO SCH (21:26)
[2020-11-15] MEDS: hydrOXYzine PAMOATE 25 MG CAPSULE (FP) PO SCH (21:27)
[2020-11-15] MEDS: ATORVASTATIN CA 20 MG TABLET (FP) PO SCH (21:27)
[2020-11-15] MEDS ORDERED: KETOROLAC TROMETHAMINE 30 MG/1 ML VIAL IVPUSH ONE ×2 (22:45)
[2020-11-15] MEDS: QUEtiapine FUMARATE 200 MG TABLET PO SCH (23:07)
[2020-11-16] MEDS: ACETAMINOPHEN 1000 MG/100 ML VIAL (NON FORMULARY) IVPB PRN (06:23)
[2020-11-16 08:07] LABS: HEMOGLOBIN 11.3 GM/dl (10.7-15.3)
[2020-11-16 08:43] LABS: WHITE BLOOD COUNT 8.7 K/mm3 (4.0-10.8)
[2020-11-16 08:49] LABS: MCH 28.4 pg (25.7-33.7); MCHC 33.1 g/dl (32.0-36.0); MEAN CELL VOLUME 85.7 fl (80-96); MEAN PLT VOLUME 9.6 fl (7.5-11.1); PLATELET COUNT 122 10^3/uL (134-434); RBC 3.97 M/mm3 (3.60-5.2); RDW 13.3 % (11.6-15.6)
[2020-11-16] MEDS: FAMOTIDINE 20 MG TABLET PO SCH (09:28)
[2020-11-16] MEDS: ASPIRIN 325 MG TABLET PO SCH (09:28)
[2020-11-16] MEDS: SENNOSIDES/DOCUSATE COMBO (SENNA PLUS) TABLET (UD) PO SCH (09:28)
[2020-11-16] MEDS: PANTOPRAZOLE 20 MG TABLET PO SCH (09:29)
[2020-11-16] MEDS: MULTIVITAMINS (DAILY MVI) TABLET (FP) PO SCH (09:29)
[2020-11-16] MEDS: hydrALAZINE HCL 50 MG TABLET (FP) PO SCH (10:48)
[2020-11-16] MEDS: amLODIPine BESYLATE 10 MG TABLET (FP) PO SCH (10:49)
[2020-11-16 11:43] VITALS: BP 103/59; PULSE 100; TEMP 98.5
== END 2020-11-16 14:53 | disposition home health service (06) | DRG 470 ==
LOC: FM/S 08:57
PROVIDERS: ADMIT Orthopaedic Surgery; ATTEND Orthopaedic Surgery
PROC: 8E0YXBG Computer Assisted Procedure of Lower Extremity, With Computerized Tomography (ICD-10-PCS; 2020-11-14)
PROC: 8E0Y0CZ Robotic Assisted Procedure of Lower Extremity, Open Approach (ICD-10-PCS; 2020-11-14)
PROC: 0SRC0J9 Replacement of Right Knee Joint with Synthetic Substitute, Cemented, Open Approach (ICD-10-PCS; principal; 2020-11-14 12:11)
DX: M17.11 Unilateral primary osteoarthritis, right knee (principal); F31.9 Bipolar disorder, unspecified; E78.5 Hyperlipidemia, unspecified; I10 Essential (primary) hypertension; F17.210 Nicotine dependence, cigarettes, uncomplicated
CPT/HCPCS: 36415; 73560-TC-RT-FY; 85027; 94760; 97010-GP; 97116-GP; 97163-GP; J0131

== ENCOUNTER 2024-05-23 09:20 | Inpatient (IN) | payer OTHER ==
[2024-05-23] MEDS ORDERED: ACETAMINOPHEN INJECTION 100 ML ONE (09:46)
[2024-05-23] MEDS ORDERED: ALBUTEROL SO4 2.5/IPRATROPIUM 0.5 INH SOL 3 ML VIAL.NEB. NEB ONE (09:46)
[2024-05-23] MEDS ORDERED: methylPREDNISolone NA SUCC 125 MG/2 ML VIAL ONE (09:47)
[2024-05-23 09:49] VITALS: BMI 30.7
[2024-05-23 09:56] LABS: INR 1.09 (0.83-1.09); PROTHROMBIN TIME (PATIENT) 11.9 SEC (9.7-13.0)
[2024-05-23 09:58] LABS: ABSOLUTE IMMATURE GRANULOCYTES 0.04 x10^3/uL (0.0-0.031); ACTIVATED PTT 32.6 SECONDS (25.2-36.5); BASOPHILS # 0.05 x10^3/uL (0.01-0.08); EOSINOPHIL % 0.9 % (0.7-5.8); HEMATOCRIT 22.5 % (34.1-44.9); HEMOGLOBIN 6.4 g/dL (11.2-15.7); MCHC 28.4 g/dl (32.2-35.5); MEAN CELL VOLUME 76.8 fl (79.4-94.8); MONOCYTE # 0.61 x10^3/uL (0.24-0.86); MONOCYTE % 5.3 % (4.7-12.5); PLATELET COUNT 328 x10^3/uL (182-369); RDW 15.4 % (12.4-16.6)
[2024-05-23] MEDS: methylPREDNISolone NA SUCC 125 MG/2 ML VIAL IVPUSH ONE (10:02)
[2024-05-23] MEDS: ACETAMINOPHEN 1000 MG/100 ML BAG IVPB ONE (10:02)
[2024-05-23] MEDS: ALBUTEROL SO4 2.5/IPRATROPIUM 0.5 INH SOL 3 ML VIAL.NEB. NEB ONE (10:02)
[2024-05-23 10:09] LABS: VENOUS BASE EXCESS -4.8 mmol/L (-2-2); VENOUS O2 SATURATION 68.6 % (70-80); VENOUS PCO2 41.1 mmHg (38-52); VENOUS PH 7.323 (7.310-7.410)
[2024-05-23 10:15] LABS: POTASSIUM 4.1 mmol/L (3.5-5.1)
[2024-05-23 10:18] LABS: ALBUMIN 3.8 g/dl (3.4-5.0); BLOOD UREA NITROGEN 20.8 mg/dL (7-18); CALCIUM 9.4 mg/dL (8.5-10.1)
[2024-05-23 10:21] LABS: CREATININE 1.4 mg/dL (0.55-1.3)
[2024-05-23 10:23] LABS: BILIRUBIN,TOTAL 0.4 mg/dL (0.2-1); TOT PROT 7.5 g/dl (6.4-8.2)
[2024-05-23] MEDS: EZETIMIBE 10 MG TABLET (FP) PO SCH (12:46)
[2024-05-23] MEDS: PANTOPRAZOLE SODIUM 40 MG VIAL IVPUSH SCH (12:46)
[2024-05-23] MEDS: hydrOXYzine PAMOATE 25 MG CAPSULE (FP) PO SCH (12:46)
[2024-05-23] MEDS: LISINOPRIL 5 MG TABLET PO SCH (12:46)
[2024-05-23] MEDS: LOPERAMIDE HCL 2 MG CAPSULE PO ONE (14:08)
[2024-05-23] MEDS: QUETIAPINE FUMARATE 100 MG, QUETIAPINE FUMARATE 50 MG PO SCH (22:18)
[2024-05-23] MEDS: metroNIDAZOLE 250 MG TABLET PO SCH (22:19)
[2024-05-23] MEDS: BUDESONIDE/FORMETEROL FUMARATE 80/4.5 mcg INHALER IH SCH (22:27)
[2024-05-23] MEDS: QUEtiapine FUMARATE 50 MG TABLET PO SCH (22:34)
[2024-05-24] MEDS: ACETAMINOPHEN 325 MG TABLET (FP) PO PRN (02:18)
[2024-05-24] MEDS: SODIUM CHLORIDE 1,000 ML IV SCH (02:36)
[2024-05-24 08:35] LABS: ABSOLUTE IMMATURE GRANULOCYTES 0.05 x10^3/uL (0.0-0.031); BASOPHILS # 0.02 x10^3/uL (0.01-0.08); EOSINOPHIL % 0.2 % (0.7-5.8); EOSINOPHILS # 0.02 x10^3/uL (0.04-0.36); HEMATOCRIT 24.7 % (34.1-44.9); HEMOGLOBIN 7.7 g/dL (11.2-15.7); MCHC 31.2 g/dl (32.2-35.5); MEAN CELL VOLUME 76.9 fl (79.4-94.8); MEAN PLT VOLUME 10.7 fl (9.4-12.3); MONOCYTE # 0.67 x10^3/uL (0.24-0.86); MONOCYTE % 6.5 % (4.7-12.5); PLATELET COUNT 291 x10^3/uL (182-369)
[2024-05-24 09:00] LABS: POTASSIUM 4.1 mmol/L (3.5-5.1)
[2024-05-24 09:53] LABS: BILIRUBIN,TOTAL 0.5 mg/dL (0.2-1)
[2024-05-24 09:58] LABS: CALCIUM 8.7 mg/dL (8.5-10.1)
[2024-05-24] MEDS ORDERED: amLODIPine BESYLATE 10 MG TABLET (FP) PO SCH (10:00)
[2024-05-24 10:01] LABS: CREATININE 1.3 mg/dL (0.55-1.3); PHOSPHOROUS 2.7 mg/dL (2.5-4.9)
[2024-05-24 10:03] LABS: TOT PROT 6.3 g/dl (6.4-8.2)
[2024-05-24] MEDS: amLODIPine BESYLATE 10 MG TABLET (FP) PO SCH (10:14)
[2024-05-24] MEDS: ALBUTEROL SO4 HFA INHALER IH SCH (10:15)
[2024-05-24] MEDS: BISACODYL 5 MG TABLET.DR (FP) PO ONE (17:43)
[2024-05-24] MEDS: FUROSEMIDE 40 MG TABLET (FP) PO ONE (17:43)
[2024-05-24] MEDS: POLYETHYLENE GLYCOL 3350 255 GM BTL PO ONE (21:11)
[2024-05-25] MEDS ORDERED: ACETAMINOPHEN 325 MG TABLET (FP) PO PRN (03:05)
[2024-05-25] MEDS: oxyCODONE HCL 5 MG TABLET PO PRN (03:27)
[2024-05-25] MEDS: ACETAMINOPHEN 325 MG TABLET (FP) PO PRN (03:28)
[2024-05-25 10:16] LABS: ABSOLUTE IMMATURE GRANULOCYTES 0.04 x10^3/uL (0.0-0.031); BASOPHILS # 0.05 x10^3/uL (0.01-0.08); EOSINOPHIL % 1.3 % (0.7-5.8); HEMATOCRIT 30.8 % (34.1-44.9); HEMOGLOBIN 9.5 g/dL (11.2-15.7); MCHC 30.8 g/dl (32.2-35.5); MEAN PLT VOLUME 10.9 fl (9.4-12.3); MONOCYTE % 7.7 % (4.7-12.5); PLATELET COUNT 305 x10^3/uL (182-369); RDW 15.2 % (12.4-16.6)
[2024-05-25 10:38] LABS: POTASSIUM 3.8 mmol/L (3.5-5.1)
[2024-05-25 10:53] LABS: BLOOD UREA NITROGEN 20.3 mg/dL (7-18); CALCIUM 8.7 mg/dL (8.5-10.1)
[2024-05-25 10:55] LABS: ALBUMIN 3.1 g/dl (3.4-5.0); TOT PROT 6.3 g/dl (6.4-8.2)
[2024-05-25 10:56] LABS: CREATININE 1.2 mg/dL (0.55-1.3)
[2024-05-25 11:00] LABS: BILIRUBIN,TOTAL 0.8 mg/dL (0.2-1)
[2024-05-25] MEDS ORDERED: ALBUTEROL SO4 2.5/IPRATROPIUM 0.5 INH SOL 3 ML VIAL.NEB. NEB ONE ×2 (12:41→12:42)
[2024-05-25] MEDS ORDERED: ALBUTEROL SO4 0.083% IH SOL 2.5 MG/3 ML VIAL.NEB. NEB ONE (12:41)
[2024-05-25] MEDS ORDERED: MIDAZOLAM HCL 2 MG/2 ML SINGLE DOSE VIAL ONE (12:58)
[2024-05-26] MEDS: LISINOPRIL 10 MG TABLET PO SCH (09:20)
[2024-05-26 09:30] LABS: ABSOLUTE IMMATURE GRANULOCYTES 0.03 x10^3/uL (0.0-0.031); BASOPHILS # 0.03 x10^3/uL (0.01-0.08); EOSINOPHIL % 0.4 % (0.7-5.8); EOSINOPHILS # 0.04 x10^3/uL (0.04-0.36); HEMATOCRIT 31.2 % (34.1-44.9); HEMOGLOBIN 9.6 g/dL (11.2-15.7); MCHC 30.8 g/dl (32.2-35.5); MEAN CELL VOLUME 77.6 fl (79.4-94.8); MONOCYTE # 0.76 x10^3/uL (0.24-0.86); MONOCYTE % 7.9 % (4.7-12.5); RDW 15.9 % (12.4-16.6)
[2024-05-26 09:53] LABS: POTASSIUM 4.1 mmol/L (3.5-5.1)
[2024-05-26 10:57] LABS: CALCIUM 8.5 mg/dL (8.5-10.1)
[2024-05-26 10:58] LABS: BLOOD UREA NITROGEN 24.1 mg/dL (7-18)
[2024-05-26 11:01] LABS: CREATININE 1.3 mg/dL (0.55-1.3)
[2024-05-26 15:31] LABS: MEAN PLT VOLUME 11.1 fl (9.4-12.3); PLATELET COUNT 323 x10^3/uL (182-369)
[2024-05-27 08:33] LABS: ABSOLUTE IMMATURE GRANULOCYTES 0.04 x10^3/uL (0.0-0.031); BASOPHILS # 0.03 x10^3/uL (0.01-0.08); EOSINOPHIL % 1.3 % (0.7-5.8); EOSINOPHILS # 0.11 x10^3/uL (0.04-0.36); HEMATOCRIT 32.7 % (34.1-44.9); HEMOGLOBIN 9.7 g/dL (11.2-15.7); MCHC 29.7 g/dl (32.2-35.5); MEAN PLT VOLUME 10.6 fl (9.4-12.3); MONOCYTE # 0.68 x10^3/uL (0.24-0.86); PLATELET COUNT 313 x10^3/uL (182-369); RDW 16.9 % (12.4-16.6)
[2024-05-27 11:07] LABS: TOTAL PROTEIN, URINE 8.1 mg/dL (Not Estab.)
[2024-05-28] MEDS ORDERED: PROPOFOL 20 ML ONE (07:34)
[2024-05-28] MEDS ORDERED: ETOMIDATE 20 MG/10 ML VIAL IVPUSH ONE (07:34)
[2024-05-28] MEDS ORDERED: MIDAZOLAM HCL 2 MG/2 ML SINGLE DOSE VIAL ONE (07:35)
[2024-05-28] MEDS ORDERED: ROCURONIUM BROMIDE 50 MG/5 ML SYRINGE ONE (07:36)
[2024-05-28] MEDS: LACTATED RINGERS SOLUTION 1,000 ML IV SCH (09:25)
[2024-05-28] MEDS ORDERED: ONDANSETRON 4 MG/2 ML VIAL ONE (10:32)
[2024-05-28] MEDS: ONDANSETRON 4 MG/2 ML VIAL IVPUSH PRN (10:35)
[2024-05-28] MEDS: PANTOPRAZOLE 40 MG TABLET PO SCH (11:50)
[2024-05-28 12:52] VITALS: RESP 18
[2024-05-28 15:52] LABS: ABSOLUTE IMMATURE GRANULOCYTES 0.03 x10^3/uL (0.0-0.031); BASOPHILS # 0.04 x10^3/uL (0.01-0.08); EOSINOPHIL % 0.8 % (0.7-5.8); EOSINOPHILS # 0.08 x10^3/uL (0.04-0.36); HEMATOCRIT 36.3 % (34.1-44.9); HEMOGLOBIN 10.6 g/dL (11.2-15.7); MCHC 29.2 g/dl (32.2-35.5); MEAN CELL VOLUME 81.6 fl (79.4-94.8); MEAN PLT VOLUME 10.6 fl (9.4-12.3); MONOCYTE # 0.71 x10^3/uL (0.24-0.86); MONOCYTE % 6.8 % (4.7-12.5); PLATELET COUNT 335 x10^3/uL (182-369); RDW 17.5 % (12.4-16.6)
[2024-05-28 16:20] LABS: POTASSIUM 4.9 mmol/L (3.5-5.1)
[2024-05-28 16:21] LABS: CALCIUM 9.2 mg/dL (8.5-10.1)
[2024-05-28 16:22] LABS: BLOOD UREA NITROGEN 25.4 mg/dL (7-18)
[2024-05-28 16:25] LABS: CREATININE 1.3 mg/dL (0.55-1.3)
[2024-05-29] MEDS: oxyCODONE HCL 5 MG TABLET PO PRN (02:22)
[2024-05-29 04:12] VITALS: BP 110/58; PULSE 70; TEMP 97.9
== END 2024-05-29 10:56 | disposition home or self-care (01) | DRG 742 ==
LOC: JER 09:20 → JERBED 10:43 → J6S 11:28
PROVIDERS: ADMIT Family Medicine; ATTEND Family Medicine
PROC: 30233N1 Transfusion of Nonautologous Red Blood Cells into Peripheral Vein, Percutaneous Approach (ICD-10-PCS; 2024-05-23)
PROC: 0DB68ZX Excision of Stomach, Via Natural or Artificial Opening Endoscopic, Diagnostic (ICD-10-PCS; 2024-05-25)
PROC: 0DBN8ZZ Excision of Sigmoid Colon, Via Natural or Artificial Opening Endoscopic (ICD-10-PCS; 2024-05-25)
PROC: 0D5M8ZZ Destruction of Descending Colon, Via Natural or Artificial Opening Endoscopic (ICD-10-PCS; 2024-05-25)
PROC: 0DB58ZX Excision of Esophagus, Via Natural or Artificial Opening Endoscopic, Diagnostic (ICD-10-PCS; principal; 2024-05-25 12:30)
PROC: 0GBH3ZX Excision of Right Thyroid Gland Lobe, Percutaneous Approach, Diagnostic (ICD-10-PCS; 2024-05-27)
PROC: 0UDB8ZZ Extraction of Endometrium, Via Natural or Artificial Opening Endoscopic (ICD-10-PCS; 2024-05-28)
PROC: 0UB98ZZ Excision of Uterus, Via Natural or Artificial Opening Endoscopic (ICD-10-PCS; 2024-05-28 07:30)
DX: N95.0 Postmenopausal bleeding (principal); J90 Pleural effusion, not elsewhere classified; K22.10 Ulcer of esophagus without bleeding; D64.9 Anemia, unspecified; K21.00 Gastro-esophageal reflux disease with esophagitis, without bleeding; F42.9 Obsessive-compulsive disorder, unspecified; J44.9 Chronic obstructive pulmonary disease, unspecified; F31.9 Bipolar disorder, unspecified; F41.0 Panic disorder [episodic paroxysmal anxiety]; K29.60 Other gastritis without bleeding; I10 Essential (primary) hypertension; K55.20 Angiodysplasia of colon without hemorrhage; K44.9 Diaphragmatic hernia without obstruction or gangrene; K64.8 Other hemorrhoids; E78.5 Hyperlipidemia, unspecified; D12.5 Benign neoplasm of sigmoid colon; F41.9 Anxiety disorder, unspecified; I12.9 Hypertensive chronic kidney disease with stage 1 through stage 4 chronic kidney disease, or unspecified chronic kidney disease; N18.9 Chronic kidney disease, unspecified; E04.1 Nontoxic single thyroid nodule; Z99.81 Dependence on supplemental oxygen; Z87.891 Personal history of nicotine dependence
CPT/HCPCS: 0241U-QW; 36415; 36430; 60100; 70450-TC; 71045-TC-FY; 71260-TC; 72040-TC; 73030-TC-LT-FY; 74177-TC; 74220-TC-FY; 76536-TC; 76830-TC; 76942-TC; 80048; 80053; 82105; 82378; 82803; 82962; 83516; 83615; 83690; 83735; 83880; 84100; 84155; 84156; 84157; 84165; 84439; 84443; 84481; 84484; 85025; 85610; 85651; 85730; 86140; 86301; 86304; 86376; 86800; 86850; 86900; 86901; 86922; 88305-TC; 88312-TC; 88342-TC; 93005; 93010; 93306-TC; 94760; 94761; 97116-GP; 97161-GP; 99285-25; J0131; P9038; P9058